=== PATIENT | male | born 1940 | race Caucasian/White ===

== ENCOUNTER 2023-04-23 19:38 | Observation (INO) | payer OTHER ==
[2023-04-23 20:42] LABS: Absolute Lymphocytes (CBC) 1.2 K/uL (0.7-4.9); Hematocrit 25.2 % (39.6-49.0); Lymphocytes % 16.5 % (15.3-44.8); MCV 62.3 fL (80-100); MPV 8.1 fL (7.6-11.3); Platelets 253 thou/uL (152-406); RBC Red Blood Cell Count 4.04 M/uL (4.33-5.43)
[2023-04-23] MEDS ORDERED: MORPHINE 4 MG/ML SYR ONE ×2 (20:43→23:24)
[2023-04-23] MEDS ORDERED: ONDANSETRON 4 MG/2 ML VIAL ONE ×2 (20:44→23:24)
[2023-04-23] MEDS ORDERED: DIAZEPAM 10 MG/2 ML INJ SYRINGE ONE (20:44)
[2023-04-23 20:56] LABS: Protime INR 1.09
[2023-04-23 21:03] LABS: Albumin 3.5 g/dL (3.4-5.0); Bilirubin Direct 0.2 mg/dL (0-0.2); Bilirubin Indirect, Calculated 0.6 mg/dL (0.2-0.8); Bilirubin Total 0.8 mg/dL (0.2-1.0); Magnesium 2.1 mg/dL (1.6-2.4); Potassium 3.8 mEq/L (3.5-5.1); Protein, Total 6.7 g/dL (6.4-8.2); Troponin High Sensitivity 15.3 pg/mL (<58.9)
--- NOTE | 2023-04-23 22:16 | RAD REPORT ---
EXAM DESCRIPTION: CT - Abdomen Pelvis Wo Contrast - 04/23/2023 9:16 pm CLINICAL HISTORY: pelvic pain, Right pelvic / hip pain COMPARISON: No comparisons TECHNIQUE: Thin cut axial CT imaging of the abdomen and pelvis was performed without IV contrast. Mu ltiplanar reformats were generated and reviewed. All CT scans are performed using dose optimization technique as appropriate and may include automated exposure control or mA/KV adjustment according to patient size. FINDINGS: Trace left more than right pleural effusions, with underlying atelectasis. . The liver, spleen, and pancreas show no suspicious findings. Linear mineralization along the right ad renal gland, could relate to sequelae of prior hemorrhage. Gallbladder and biliary tree are also with out suspicious finding. Symmetric renal contour, without suspicious parenchymal findings within limits of noncontrast techniq ue. 1.4 cm hypoattenuating medial left renal superior to mid pole cortical lesion, not well character ized although suggestive of a cyst. No evidence of radiopaque calculi or hydroureteronephrosis. No dilated bowel loops or bowel wall thickening. No free air, free fluid or inflammatory stranding. N o hernia, mass or bulky lymphadenopathy. The urinary bladder is without significant finding. No suspicious bony findings. Bilateral hip prostheses results in streak artifact which limits evaluat ion, despite utilization of metal artifact reduction techniques. IMPRESSION: Trace left more than right pleural effusions. No acute intra-abdominal process. Incidental findings as above.
[2023-04-23 22:17] LABS: Blood Morphology Comment NOTED (NOT SEEN); Hypochromasia 3+; Platelet Estimate ADEQ; Polychromasia 2+; White Blood Cell Scan OK (OK)
--- NOTE | 2023-04-23 22:17 | RAD REPORT ---
EXAM DESCRIPTION: RAD - Femur Right - 04/23/2023 9:06 pm CLINICAL HISTORY: PAIN COMPARISON: No comparisons TECHNIQUE: Right femur, 2 views. FINDINGS: No fracture is identified. Right total hip arthroplasty hardware in satisfactory alignment . There is no dislocation or periosteal reaction noted. No acute or suspicious bony finding. Vascular calcifications. IMPRESSION: Negative right femur examination.
--- NOTE | 2023-04-23 23:13 | EDPHYS ---
Physician Documentation [facility] Name: Elias Molina Age: 82 yrs Sex: Male : 1940 Arrival Date: 04/23/2023 Time: 19:38 Bed 8 Private MD: ED Physician Mario Williamson HPI: 04/23 20:04 This 82 yrs old Male presents to ER via EMS with complaints of Agitation . sp4 20:45 Very pleasant 82-year-old male presents with complaint of agitation and right hip right sp4 pelvic pain. Patient states pain has developed at home after he lifted a heavy lawnmower over onto the bed of a truck. Patient has been given 30 mg Toradol intramuscular by EMS prior to arrival for acute pain. Patient was also given 650 mg p.o. Tylenol by EMS for pain. Patient states he cannot step on the right leg. Secondary to pain. There is also pain traveling down the right thigh. Patient has history of right total hip replacement approximately 5 years ago in [facility].. Historical: - Allergies: 19:50 No Known Allergies; jb4 - Home Meds: 19:50 atorvastatin oral [Active]; Lisinopril Oral [Active]; meloxicam oral [Active]; jb4 - PMHx: 19:50 Hypercholesterolemia; Hypertensive disorder; jb4 - PSHx: 19:50 Right hip replacement; jb4 - Family history:: not pertinent. ROS: 20:45 Constitutional: Negative for fever, chills, and weight loss, Eyes: Negative for injury, sp4 pain, redness, and discharge, ENT: Negative for injury, pain, and discharge, MS/Extremity: Negative for injury and deformity, positive right pelvic and right thigh right femur pain. 20:45 All other systems are negative. Exam: 20:45 Constitutional: This is a well developed, well nourished patient who is awake, alert, sp4 patient found in mild to moderate agitation, restlessness, mild to moderate distress secondary to pain . Patient writhing around the bed cannot find comfortable spot for himself on exam. Nonambulatory at this time secondary to the right extremity pain Head/Face: Normocephalic, atraumatic. Eyes: Pupils equal round and reactive to light, extra-ocular motions intact. Lids and lashes normal. Conjunctiva and sclera are not injected. Cornea within normal limits. Periorbital areas with no swelling, redness, or edema. ENT: Nares patent. No nasal discharge, no septal abnormalities noted. Tympanic membranes are normal and external auditory canals are clear. Oropharynx with no redness, swelling, or masses, exudates, or evidence of obstruction, uvula midline. Mucous membranes moist. Neck: Trachea midline, no thyromegaly or masses palpated, and no cervical lymphadenopathy. Supple, full range of motion without nuchal rigidity, or vertebral point tenderness. Chest/axilla: Normal chest wall appearance and motion. Nontender with no deformity. No lesions are appreciated. Cardiovascular: Regular rate and rhythm with a normal S1 and S2. No gallops, murmurs, or rubs. Normal PMI, no JVD. No pulse deficits. Respiratory: Lungs have equal breath sounds bilaterally, clear to auscultation and percussion. No rales, rhonchi or wheezes noted. No increased work of breathing, no retractions or nasal flaring. Abdomen/GI: Soft, non-tender, with normal bowel sounds. No distension or tympany. No guarding or rebound. No evidence of tenderness throughout. Back: No spinal tenderness. No costovertebral tenderness. Male : Normal genitalia with no discharge or lesions. Patient is incontinent of bladder and wears depends Skin: Warm, dry with normal turgor. Normal color with no rashes, no lesions, and no evidence of cellulitis. MS/ Extremity: Pulses equal, no cyanosis. Neurovascular intact. Full, normal range of motion. Patient has right thigh anterior tenderness, no deformity, scar from prior total hip replacement on the right side. Intact peripheral pulses, intact movement. No sensation deficits Neuro: Awake and alert, GCS 15, oriented to person, place, time, and situation. Cranial nerves II-XII grossly intact. Motor strength 5/5 in all extremities. Sensory grossly intact. Psych: Awake, alert, with orientation to person, place and time. Positive for mild agitation and anxiety 22:07 ECG was reviewed by the Attending Physician. EKG time 2054, there is atrial flutter at sp4 a rate of 74 with right bundle branch block. No sign of ST elevation or depression. 23:06 Abdomen/GI: Exam negative for masses, tenderness, Rectal exam: There is no melena, no sp4 blood, no maroon stool, no hemorrhoid, no fissure, no masses, no condyloma, no other rectal abnormality. Stool is normal color. Vital Signs: 19:47 BP 173 / 98; Pulse 109; Resp 16; Temp 98.3(O); Pulse Ox 100% on R/A; Weight 83.91 kg jb4 (R); Height 5 ft. 6 in. ; Pain 10/10; 21:00 BP 170 / 95; Pulse 98; Resp 16; Pulse Ox 100% on R/A; jb4 22:00 BP 147 / 86; Pulse 92; Resp 18; Pulse Ox 100% on R/A; jb4 23:00 BP 147 / 86; Pulse 81; Resp 16; Pulse Ox 100% ; jb4 04/24 00:00 BP 142 / 75; Pulse 102; Resp 16; Pulse Ox 100% on R/A; jb4 01:00 BP 147 / 75; Pulse 76; Resp 16; Pulse Ox 100% on R/A; jb4 04/23 19:47 Body Mass Index 29.86 (83.91 kg, 167.64 cm) [facility] 04/23 19:47 Pain Scale: Adult jb4 Claudia Coma Score: 04/23 22:07 Eye Response: spontaneous(4). Motor Response: obeys commands(6). Verbal Response: sp4 oriented(5). Total: 15. MDM: 20:13 Patient medically screened. sp4 23:07 Differential Diagnosis altered mental status, sepsis, flu. Data reviewed: vital signs, sp4 nurses notes, EMS record, old medical records, lab test result(s), EKG, radiologic studies, CT scan, plain films. Consideration of Admission/Observation Escalation of care including admission/observation considered. ED course: EKG today revealed rate controlled atrial flutter. Patient and his state that they are not aware patient has irregular heartbeat. Patient reports he is not on any blood thinners. Patient has signs of chronic microcytic anemia with hemoglobin 7.9 with MCV 62.3. Possibly chronic blood loss. Patient has no prior history and no blood values to compare with from the past patient's chemistry panel was basically unremarkable. Patient has mild elevation of BNP of 859. No sign of overt heart failure. patient CT report revealed -trace left greater than right pleural effusion. No acute intra-abdominal process. Incidental findings. There is no problems with liver spleen or pancreas, left renal cyst, normal bowel, normal bladder, no suspicious bony findings, bilateral hip prosthesis without sign of hardware fracture. Right femur x-ray revealed right total hip arthroplasty hardware in satisfactory alignment. No dislocation or periosteal reaction.. ED course: Patient states all of his medical records are at [facility] in [place]. Patient and his family request transfer to [facility] in [place]. Will discuss transfer with [facility] hospital in [place] for continuity of care. Patient needs work-up for atrial flutter, also microcytic anemia, right hip and thigh pain likely musculoskeletal in nature from acute right hip and thigh sprain today after lifting a lawnmower.. 04/24 00:09 ED course: Attempt was made to patient transfer to [facility], [facility] declined secondary to sp4 capacity.. Patient states that he is preferring to stay here for work-up of atrial flutter and microcytic anemia. . 04/23 20:13 Order name: Basic Metabolic Panel; Complete Time: 22:05 [facility] 04/23 20:13 Order name: CBC with Diff; Complete Time: 22:24 [facility] 04/23 20:13 Order name: LFT's; Complete Time: 22:05 [facility] 04/23 20:13 Order name: Magnesium; Complete Time: 22:05 [facility] 04/23 20:13 Order name: NT PRO-BNP; Complete Time: 22:05 [facility] 04/23 20:13 Order name: PT-INR; Complete Time: 22:05 [facility] 04/23 20:13 Order name: Troponin HS; Complete Time: 22:05 [facility] 04/23 21:30 Order name: CBC Smear Scan; Complete Time: 22:24 [facility] 04/23 20:45 Order name: CT Abd/Pelvis - Without Contrast; Complete Time: 22:24 [facility] 04/23 20:45 Order name: Femur Right XRAY; Complete Time: 22:24 [facility] 04/23 20:13 Order name: EKG; Complete Time: 20:13 [facility] 04/23 20:13 Order name: Cardiac monitoring; Complete Time: 21:03 [facility] 04/23 20:13 Order name: EKG - Nurse/Tech; Complete Time: 21:03 [facility] 04/23 20:13 Order name: IV Saline Lock; Complete Time: 20:42 sp4 04/23 20:13 Order name: Labs collected and sent; Complete Time: 20:42 sp4 04/23 20:13 Order name: O2 Per Protocol; Complete Time: 20:42 sp4 04/23 20:13 Order name: O2 Sat Monitoring; Complete Time: 20:42 sp4 EC/11 22:07 Rate is 74 beats/min. Rhythm is irregularly irregular, A flutter. QRS [place] is Normal. sp4 QRS interval is prolonged. QT interval is normal. No ST changes noted. Clinical impression: Atrial Flutter and No evidence of ischemia. Interpreted by me. Administered Medications: 20:42 Drug: morphine IVP or IV 4 mg Route: IVP; Infused Over: 4 mins; Site: right antecubital;jb4 20:42 Drug: Diazepam IVP 5 mg Route: IVP; Site: right antecubital; jb4 20:42 Drug: Ondansetron IVP 4 mg Route: IVP; Site: right antecubital; jb4 23:21 Drug: morphine IVP or IV 4 mg Route: IVP; Infused Over: 4 mins; Site: right antecubital;jb4 23:21 Drug: Ondansetron IVP 4 mg Route: IVP; Site: right antecubital; jb4 Disposition Summary: 04/24/23 00:08 Hospitalization Ordered Hospitalization Status: Inpatient Admission sp4 Provider: Daniel Gutierres Location: Telemetry/[facility]Sur (Inpatient) sp4 Condition: Fair(04/24/23 00:08) sp4 Problem: new(04/24/23 00:08) sp4 Symptoms: are unchanged(04/24/23 00:08) sp4 Bed/Room Type: Standard sp4 Room Assignment: 213(04/24/23 00:58) Diagnosis - Unspecified atrial flutter sp4 - Anemia, unspecified sp4 - Acute fall at home, musculoskeletal pain in the right hip and thigh, moderate sp4 dementia, physical deconditioning, rate controlled atrial flutter, microcytic anemia, Forms: - Medication Reconciliation Form sp4 - SBAR form sp4 - Leadership Thank You Letter sp4 Signatures: Dispatcher [employer] EDCT Sherine Rodrigues RN RN Guillermo Flores RN RN jb4 Mario Williamson MD MD sp4 Corrections: (The following items were deleted from the chart) 04/24 00:07 04/23 23:13 [facility] [employer] sp4 sp4 04/24 00:07 04/23 23:13 [facility]-System sp4 sp4 04/24 00:07 04/23 23:13 Higher level of care sp4 sp4 04/24 00:07 04/23 23:13 Stable sp4 sp4 04/24 00:07 04/23 23:13 new sp4 sp4 04/24 00:07 04/23 23:13 have improved sp4 sp4 04/24 00:07 04/23 23:13 Other specified anemias sp4 sp4 04/24 00:07 04/23 23:13 Unspecified symptoms and signs involving the musculoskeletal system sp4 sp4 04/24 00:07 04/23 23:13 Right hip and pelvis sprain. Symptomatic anemia, microcytic anemia, atrial sp4 flutter, moderate to severe right hip pain, inability to ambulate. sp4 04/24 00:58 00:08 sp4 mw
--- NOTE | 2023-04-23 23:13 | ER ---
Nurse's Notes [facility] Name: Elias Molina Age: 82 yrs Sex: Male : 1940 Arrival Date: 04/23/2023 Time: 19:38 Bed 8 Private MD: Diagnosis: Unspecified atrial flutter;Anemia, unspecified;Acute fall at home, musculoskeletal pain in the right hip and thigh, moderate dementia, physical deconditioning, rate controlled atrial flutter, microcytic anemia, Presentation: 04/23 19:47 Chief complaint: Patient states: "I did not fall. The pain got so bad I eased myself to jb4 the ground." EMS states: Pt reports stumbling and falling and landing on his bottom. Reports right hip pain after falling, no obvious deformity noted. Coronavirus screen: At this time, the client does not indicate any symptoms associated with coronavirus-19. Ebola Screen: No symptoms or risks identified at this time. Initial Sepsis Screen: Does the patient meet any 2 criteria? No. Patient's initial sepsis screen is negative. Does the patient have a suspected source of infection? No. Patient's initial sepsis screen is negative. Risk Assessment: Do you want to hurt yourself or someone else? Patient reports no desire to harm self or others. Onset of symptoms was April 23, 2023. Transition of care: patient was not received from another setting of care. 19:47 Method Of Arrival: EMS: [facility] jb4 19:47 Acuity: [facility] 3 jb4 19:47 Care prior to arrival: Medication(s) given: Tylenol, 975mg Toradol 30mg IM. jb4 Triage Assessment: 19:50 General: Appears in no apparent distress. comfortable, Behavior is calm, cooperative. jb4 Pain: Complains of pain in right leg Pain does not radiate. Pain currently is 10 out of 10 on a pain scale. Is intermittent, Aggravated by Movement. EENT: No deficits noted. Neuro: Level of Consciousness is awake, alert, obeys commands, Oriented to person, place, time, situation. Cardiovascular: Patient's skin is warm and dry. Respiratory: Airway is patent Respiratory effort is even, unlabored, Respiratory pattern is regular, symmetrical. GI: No signs and/or symptoms were reported involving the gastrointestinal system. : No signs and/or symptoms were reported regarding the genitourinary system. Derm: Skin is intact, Skin is pink, warm \\T\\ dry. normal. Musculoskeletal: Circulation, motion, and sensation intact. Range of motion: intact in all extremities. Historical: - Allergies: 19:50 No Known Allergies; jb4 - Home Meds: 19:50 atorvastatin oral [Active]; Lisinopril Oral [Active]; meloxicam oral [Active]; jb4 - PMHx: 19:50 Hypercholesterolemia; Hypertensive disorder; jb4 - PSHx: 19:50 Right hip replacement; jb4 - Family history:: not pertinent. Screenin:53 [facility] ED Fall Risk Assessment (Adult) History of falling in the last 3 months, jb4 including since admission No falls in past 3 months (0 pts) Confusion or Disorientation No (0 pts) Score/Fall Risk Level 0 - 2 = Low Risk Oriented to surroundings, Maintained a safe environment. Abuse screen: Denies threats or abuse. Nutritional screening: No deficits noted. Tuberculosis screening: No symptoms or risk factors identified. Assessment: 21:00 Reassessment: Patient appears in no apparent distress at this time. Patient and/or jb4 family updated on plan of care and expected duration. Pain level reassessed. Patient is alert, oriented x 3, equal unlabored respirations, skin warm/dry/pink. 22:00 Reassessment: Patient appears in no apparent distress at this time. Patient and/or jb4 family updated on plan of care and expected duration. Pain level reassessed. Patient is alert, oriented x 3, equal unlabored respirations, skin warm/dry/pink. 23:00 Reassessment: Patient appears in no apparent distress at this time. Patient and/or jb4 family updated on plan of care and expected duration. Pain level reassessed. Patient is alert, oriented x 3, equal unlabored respirations, skin warm/dry/pink. 04/24 00:00 Reassessment: Patient appears in no apparent distress at this time. Patient and/or jb4 family updated on plan of care and expected duration. Pain level reassessed. Patient is alert, oriented x 3, equal unlabored respirations, skin warm/dry/pink. 01:00 Reassessment: Patient appears in no apparent distress at this time. Patient and/or jb4 family updated on plan of care and expected duration. Pain level reassessed. Patient is alert, oriented x 3, equal unlabored respirations, skin warm/dry/pink. Vital Signs: 04/23 19:47 BP 173 / 98; Pulse 109; Resp 16; Temp 98.3(O); Pulse Ox 100% on R/A; Weight 83.91 kg jb4 (R); Height 5 ft. 6 in. ; Pain 10/10; 21:00 BP 170 / 95; Pulse 98; Resp 16; Pulse Ox 100% on R/A; jb4 22:00 BP 147 / 86; Pulse 92; Resp 18; Pulse Ox 100% on R/A; jb4 23:00 BP 147 / 86; Pulse 81; Resp 16; Pulse Ox 100% ; jb4 04/24 00:00 BP 142 / 75; Pulse 102; Resp 16; Pulse Ox 100% on R/A; jb4 01:00 BP 147 / 75; Pulse 76; Resp 16; Pulse Ox 100% on R/A; jb4 04/23 19:47 Body Mass Index 29.86 (83.91 kg, 167.64 cm) 4 04/23 19:47 Pain Scale: Adult [facility] Claudia Coma Score: 04/23 22:07 Eye Response: spontaneous(4). Motor Response: obeys commands(6). Verbal Response: sp4 oriented(5). Total: 15. ED Course: 19:39 Patient arrived in ED. rv1 19:50 Triage completed. jb4 19:50 Arm band placed on right wrist. jb4 19:53 Patient has correct armband on for positive identification. Bed in low position. Call [facility] light in reach. Side rails up X 1. Client placed on continuous cardiac and pulse oximetry monitoring. NIBP monitoring applied. 20:04 Mario Williamson MD is Attending Physician. sp4 20:25 Initial lab(s) drawn, by md, sent to lab. Inserted saline lock: 18 gauge in right jb4 antecubital area, using aseptic technique. Blood collected. 21:08 Femur Right XRAY In Process Unspecified. EDMS 21:18 CT Abd/Pelvis - Without Contrast In Process Unspecified. EDMS 21:18 Guillermo Flores RN is Primary Nurse. jb4 04/24 00:07 Daniel Gutierres MD is Hospitalizing Provider. sp4 01:51 No provider procedures requiring assistance completed. Patient admitted, IV remains in jb4 place. Administered Medications: 04/23 20:42 Drug: morphine IVP or IV 4 mg Route: IVP; Infused Over: 4 mins; Site: right antecubital;jb4 20:42 Drug: Diazepam IVP 5 mg Route: IVP; Site: right antecubital; jb4 20:42 Drug: Ondansetron IVP 4 mg Route: IVP; Site: right antecubital; jb4 23:21 Drug: morphine IVP or IV 4 mg Route: IVP; Infused Over: 4 mins; Site: right antecubital;jb4 23:21 Drug: Ondansetron IVP 4 mg Route: IVP; Site: right antecubital; jb4 Medication: 19:53 VIS not applicable for this client. jb4 Outcome: 23:13 ER care complete, transfer ordered by . sp4 04/24 00:08 Decision to Hospitalize by Provider. sp4 01:51 Admitted to Med/surg accompanied by nurse, via stretcher, room 213, with chart, Report jb4 called to TRISTEN Baxter 01:51 Condition: stable 01:51 Discharge instructions given to patient, family, Instructed on the need for admit, Demonstrated understanding of instructions. 01:54 Patient left the ED. 4 Signatures: Dispatcher [employer] EDGuillermo Andersen RN RN jb4 Fatemeh Smith rv1 Mario Williamson MD MD sp4 Corrections: (The following items were deleted from the chart) 04/23 19:55 19:47 Chief complaint: Patient states: "I did not fall. The pain got so bad I eased jb4 myself to the ground." EMS states: Pt reports stumbling and falling and landing on his bottom. Reports right hip pain after falling, no obvious deformity noted. jb4 04/24 01:51 04/23 23:00 No provider procedures requiring assistance completed. jb4 jb4 04/24 01:04/23 23:00 Patient admitted, IV remains in place. jb4 jb4
--- NOTE | 2023-04-24 00:42 | P.HP ---
Certification for Inpatient Patient admitted to: Observation With expected LOS: <2 Midnights Patient will require the following post-hospital care: None Practitioner: I am a practitioner with admitting privileges, knowledge of patient current condition, hospital course, and medical plan of care. Services: Services provided to patient in accordance with Admission requirements found in Title 42 Section 412.3 of the Code of Federal Regulations <MikeScott Mccallum - Last Filed: 04/24/23 00:38> Patient History Date of Service: 04/24/23 Reason for admission: New onset A-fib, fall History of Present Illness: 82-year-old male with history of hypertension, hyperlipidemia presents emergency department with chief complaint of fall resulting in right hip pain. He cannot really explain the events surrounding the fall, he is mildly confused it appears at baseline. Oriented x2-3. He reports that he thinks he slipped or tripped causing his fall denies loss of consciousness chest pain or headache preceding his fall primarily complaining of right hip pain. He was evaluated in the emergency department CT abdomen pelvis without contrast was performed which was negative for traumatic findings showed trace left more than right pleural effusions. EKG was performed which revealed atrial fibrillation which is new for the patient as far as he and his now also notable for microcytic anemia. No known history of anemia either, no labs available for comparison. ED provider wishes to admit under observation for new onset atrial fibrillation, microcytic anemia, fall, right hip pain. Rectal examination was negative for melena, no reports of GI bleeding. Will admit for further evaluation. - Past Medical/Surgical History Diabetic: No -: Hypertension -: Hyperlipidemia -: Bilateral hip replacement Psychosocial/ Personal History: Patient lives at home with his - Family History Family History: Reviewed- Non-Contributory - Social History Smoking Status: Never smoker Alcohol use: No CD- Drugs: No Caffeine use: Yes Place of Residence: Home <Scott Mckeon - Last Filed: 04/24/23 00:38> Date of Service: 04/24/23 <Daniel Gutierres - Last Filed: 04/24/23 18:32> Review of Systems 10-point ROS is otherwise unremarkable Musculoskeletal: Other (Right hip pain) <Scott Mckeon - Last Filed: 04/24/23 00:38> Physical Examination - Physical Exam General: Alert, In no apparent distress, Oriented x2 HEENT: Atraumatic, PERRLA, Mucous membr. moist/pink, EOMI, Sclerae nonicteric Neck: Supple, 2+ carotid pulse no bruit, No LAD, Without JVD or thyroid abnormality Respiratory: Clear to auscultation bilaterally, Normal air movement Cardiovascular: Regular rate/rhythm, Normal S1 S2 Capillary refill: <2 Seconds Gastrointestinal: Normal bowel sounds, No tenderness Musculoskeletal: No tenderness Integumentary: No rashes Neurological: Normal speech, Normal strength at 5/5 x4 extr, Normal tone, Normal affect - Studies Laboratory Data (last 24 hrs) 04/23/23 04/23/23 04/23/23 20:25 20:25 20:25 WBC 7.00 Hgb 7.9 L Hct 25.2 L Plt Count 253 PT 12.0 INR 1.09 Sodium 137 Potassium 3.8 BUN 26 H Creatinine 1.21 Glucose 108 H Magnesium 2.1 Total Bilirubin 0.8 AST 14 L ALT 22 Alkaline Phosphatase 72 <Scott Mckeon - Last Filed: 04/24/23 00:38> - Studies Laboratory Data (last 24 hrs) 04/23/23 04/23/23 04/23/23 20:25 20:25 20:25 WBC 7.00 Hgb 7.9 L Hct 25.2 L Plt Count 253 PT 12.0 INR 1.09 Sodium 137 Potassium 3.8 BUN 26 H Creatinine 1.21 Glucose 108 H Magnesium 2.1 Total Bilirubin 0.8 AST 14 L ALT 22 Alkaline Phosphatase 72 <Daniel Gutierres - Last Filed: 04/24/23 18:32> Assessment and Plan - Plan Assessment: New onset atrial fibrillation Microcytic anemia Mechanical fall/right hip pain Hypertension Hyperlipidemia Plan: New onset atrial fibrillation No known history of atrial fibrillation, [id number] score is 3 which would warrant anticoagulation although patient has what is believed to be a new onset microcytic anemia with hemoglobin of 7.8, will hold off on systemic anticoagulation until acute bleeding is without. Currently is rate controlled. Will obtain echocardiogram, measure thyroid function, cardiology consultation. Microcytic anemia -type and screen, SADAF labs ordered. Transfuse to maintain hemoglobin greater than 7. Mechanical fall/right hip pain As needed pain medications, PT consult. Hypertension Hyperlipidemia Continue home medications. DVT PPX: SCD Code status: Full Discharge Plan: Home Plan to discharge in: 24 Hours - Advance Directives Does patient have a Living Will: No Does patient have a Durable POA for Healthcare: No - Code Status/Comfort Care Code Status Assessed: Yes (Full code) Critical Care: No Time Spent Managing Pts Care (In Minutes): 55 <Scott Mckeon - Last Filed: 04/24/23 00:38> Physician Review: Patient Assessed, Agree with Above Assessment and Plan <Daniel Gutierres - Last Filed: 04/24/23 18:32>
[2023-04-24 02:00] VITALS: O2SAT 100
[2023-04-24] MEDS ORDERED: ONDANSETRON 4 MG/2 ML VIAL IV PRN (02:00)
[2023-04-24] MEDS: HYDROCODONE/APAP 5/325 MG TAB PO PRN ×2 (02:21→19:15)
[2023-04-24 04:34] LABS: Absolute Lymphocytes (CBC) 1.4 K/uL (0.7-4.9); Hematocrit 23.1 % (39.6-49.0); Lymphocytes % 20.4 % (15.3-44.8); MPV 8.3 fL (7.6-11.3); Platelets 225 thou/uL (152-406); RBC Red Blood Cell Count 3.67 M/uL (4.33-5.43)
[2023-04-24 04:42] LABS: MCV 62.9 fL (80-100)
[2023-04-24 05:01] LABS: Ferritin 3.7 ng/mL (26-388); Magnesium 2.1 mg/dL (1.6-2.4); Potassium 3.8 mEq/L (3.5-5.1); Thyroid Stimulating Hormone 3.35 uIU/mL (0.358-3.740); Troponin High Sensitivity 25.5 pg/mL (<58.9)
[2023-04-24 10:57] LABS: Specific Gravity > 1.030 (1.005-1.030); Urine Bacteria None Seen /HPF (<20); Urine Bilirubin NEGATIVE (Negative); Urine Blood Negative (Negative); Urine Clarity Clear (Clear); Urine Color Yellow (Yellow); Urine Glucose NEGATIVE (Negative); Urine Mucus 2+ /HPF (None Seen); Urine Protein 1+ (Negative); Urine RBC <5 /HPF (None Seen); Urine Urobilinogen Normal (Normal); Urine pH 5.5 (5.0-7.0)
[2023-04-24] MEDS: SOD FERRIC GLUC COMPLX/SUCROSE 125 MG in NA CHLORIDE 0.9% 100 ML IV SCH (18:58)
[2023-04-24] MEDS ORDERED: ALPRAZOLAM 0.25 MG TABLET PO ONE (19:00)
[2023-04-24 20:12] LABS: Hematocrit 25.1 % (39.6-49.0)
[2023-04-24] MEDS ORDERED: HALOPERIDOL LACT 5 MG/ML INJ IV ONE (21:34)
[2023-04-25 02:01] VITALS: BMI 29.8
[2023-04-25 03:28] LABS: Absolute Lymphocytes (CBC) 1.1 K/uL (0.7-4.9); Lymphocytes % 20.1 % (15.3-44.8); MPV 8.3 fL (7.6-11.3); Platelets 204 thou/uL (152-406); RBC Red Blood Cell Count 3.66 M/uL (4.33-5.43)
[2023-04-25 03:36] LABS: MCV 62.8 fL (80-100)
[2023-04-25 03:42] LABS: Magnesium 2.1 mg/dL (1.6-2.4)
[2023-04-25] MEDS: SOD FERRIC GLUC COMPLX/SUCROSE 125 MG in NA CHLORIDE 0.9% 100 ML IV SCH (08:57)
--- NOTE | 2023-04-25 09:22 | ECHO ---
HEIGHT: 5 ft 6 in WEIGHT: 185 lb 0 oz DATE OF STUDY: 04/24/[address]: Scott Mckeon NP 2-DIMENSIONAL: YES M.MODE: YES DOPPLER: YES COLOR FLOW: YES TDS: PORTABLE: YES DEFINITY: BUBBLE STUDY: DIAGNOSIS: NEW ATRIAL FIBRILLATION CARDIAC HISTORY: CATHERIZATION: NO SURGERY: NO PROSTHETIC VALVE: NO PACEMAKER: NO MEASUREMENTS (cm) DIASTOLIC (NORMALS) SYSTOLIC (NORMALS) IVSd 0.9 (0.6-1.2) LA Diam 3.3 (1.9-4.0) LVEF 68% LVIDd 4.6 (3.5-5.7) LVIDs 2.9 (2.0-3.5) %FS 38% LVPWd 1.1 (0.6-1.2) Ao Diam 3.1 (2.0-3.7) 2 DIMENSIONAL ASSESSMENT: RIGHT ATRIUM: NORMAL LEFT ATRIUM: NORMAL RIGHT VENTRICLE: NORMAL LEFT VENTRICLE: NORMAL TRICUSPID VALVE: NORMAL MITRAL VALVE: MILD MITRAL REGURGITATION PULMONIC VALVE: NORMAL AORTIC VALVE: MILD AORTIC INSUFFICIENCY PERICARDIAL EFFUSION: NONE AORTIC ROOT: NORMAL LEFT VENTRICULAR WALL MOTION: NORMAL DOPPLER/COLOR FLOW: SEE BELOW COMMENTS: 1. NORMAL LEFT VENTRICULAR EJECTION FRACTION 55-60% 2. NORMAL WALL MOTION 3. MILD MITRAL REGURGITATION 4. MILD TRICUSPID REGURGITATION TECHNOLOGIST: BERTA MARTINEZ
[2023-04-25 11:52] LABS: Hematocrit 26.8 % (39.6-49.0)
[2023-04-25 12:36] VITALS: BP 149/75; TEMP 97.8
--- NOTE | 2023-04-25 13:28 | P.DS ---
Admission Date: 04/24/23 Discharge Date: 04/25/23 Disposition: ROUTINE DISCHARGE Discharge Condition: GOOD Reason for Admission: New onset A-fib, fall Consultations: 1. 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 Elias Molina is a pleasant 82 year old male with a past medical history significant for hypertension and hyperlipidemia who was admitted to the [facility] on 04/24/2023 for right hip pain. He as admitted to the Medicine service. Upon further evaluation, his CT abdomen/pelvis revealed, "trace left more than right pleural effusions. No acute intra-abdominal process." His right femur x-ray revealed, "negative right femur examination." He was incidentally found to have rate-controlled atrial fibrillation. Cardiology was consulted and he was evaluated by Dr. Sharpe. He recommended starting metoprolol succinate 25 mg daily. He has cleared him for discharge with outpatient follow-up. Incidentally, he was found to have microcytic anemia. Further evaluation revealed lab studies consistent with iron-deficiency. He reported having a prior colonoscopy, but he does not remember when it was. To his knowledge, there were no abnormalities. He did not display any evidence of bleeding. In the Emergency Department, his digital rectal examination was negative for melena. He denied any hemoptysis, hematemesis, hematuria, hematochezia, melena, or any obvious source of bleeding. After a detailed discussion with Dr. Sharpe, Dr. Sewell, Mr. Molina, and his Mrs. Molina, it was decided that he should not be started on systemic anticoagulation at this time. This decision was reached based on the unknown chronicity of his anemia as well as his CT scan concerning for a possible prior right adrenal hemorrhage. He and his were provided an extensive risk/benefit counseling regarding anticoagulation including, but not limited to, stroke risk/ without anticoagulation compared to severe bleeding/ with anticoagulation. They have agreed to hold off on anticoagulation at this time. Dr. Sewell has them scheduled to see him in clinic today at 15:00 and he will arrange for endoscopy tomorrow. Dr. Sharpe has arranged to see them in clinic on 04/30/2023 to re-visit the topic of anticoagulation at that time. Mr. Molina and his have agreed to make the above follow-up appointment and verbalized agreement with this management plan. In regards to his mobility, he was able to walk 250 feet with a cane. Per his , he uses a cane at baseline. She has also confirmed that he is alert and oriented x 2 at baseline. On 04/25/2023, he was seen on rounds and deemed medically stable for discharge. He was discharged with instructions to schedule follow-up appointments with his PCP ([facility]), with Gastroenterology (Dr. Sewell), and with Cardiology (Dr. Sharpe). He was provided a prescription for metoprolol succinate. He and his were given the opportunity to ask questions and reported no further questions. Furthermore, all questions were answered to the best of my ability. A copy of this discharge summary will be sent to the above providers to facilitate continuity of care. Today, I personally spent 35 minutes on his case, of which greater than 50% of the time was spent in patient education, counseling, and coordination of care as described above. Vital Signs/Physical Exam: Temp Pulse Resp BP Pulse Ox 97.8 F 77 18 149/75 H 100 04/25/23 12:00 04/25/23 12:00 04/25/23 12:00 04/25/23 12:00 04/25/23 12:00 General: Alert, In no apparent distress, Oriented x2 HEENT: Atraumatic, Mucous membr. moist/pink, Sclerae nonicteric Neck: JVD not distended Respiratory: Clear to auscultation bilaterally, Normal air movement Cardiovascular: No edema, Regular rate/rhythm, Normal S1 S2, No gallops, No rubs, No murmurs Gastrointestinal: Normal bowel sounds, Soft and benign, Non-distended, No tenderness, No rebound, No guarding Musculoskeletal: No clubbing Integumentary: No rashes Neurological: Normal speech, Normal affect Laboratory Data at Discharge: WBC 5.50 thou/uL (4.3-10.9) 04/25/23 02:39 Hgb 8.1 g/dL (13.6-17.9) L D 04/25/23 11:27 Hct 26.8 % (39.6-49.0) L 04/25/23 11:27 Plt Count 204 thou/uL (152-406) 04/25/23 02:39 PT 12.0 SECONDS (9.5-12.5) 04/23/23 20:25 INR 1.09 04/23/23 20:25 Sodium 141 mEq/L (136-145) 04/25/23 02:39 Potassium 4.0 mEq/L (3.5-5.1) 04/25/23 02:39 BUN 27 mg/dL (7-18) H 04/25/23 02:39 Creatinine 1.13 mg/dL (0.70-1.30) 04/25/23 02:39 Glucose 101 mg/dL (74-106) 04/25/23 02:39 Magnesium 2.1 mg/dL (1.6-2.4) 04/25/23 02:39 Total Bilirubin 0.8 mg/dL (0.2-1.0) 04/23/23 20:25 AST 14 U/L (15-37) L 04/23/23 20:25 ALT 22 U/L (16-61) 04/23/23 20:25 Alkaline Phosphatase 72 U/L (45-117) 04/23/23 20:25 Triglycerides 37 mg/dL (<150) 04/24/23 03:32 Cholesterol 106 mg/dL (<200) 04/24/23 03:32 HDL Cholesterol 46 mg/dL (40-60) 04/24/23 03:32 Cholesterol/HDL Ratio 2.30 04/24/23 03:32 Home Medications: Ferrous Sulfate 325 mg PO DAILY #30 04/25/23 Metoprolol Succinate 25 mg PO DAILY #30 tab 04/25/23 New Medications: Ferrous Sulfate 325 mg PO DAILY #30 Metoprolol Succinate 25 mg PO DAILY #30 tab Physician Discharge Instructions: 1. Please call and schedule a follow-up appointment with your PCP ([facility]) in 3-5 days - Your iron levels were low. Please have your PCP repeat your iron levels and blood counts at your next appointment - Your CT scan showed that you have had a possible previous bleed in your adrenal gland. Please discuss with your PCP - Your CT scan showed a 1.4 cm spot on your left kidney. Please discuss with your PCP. 2. Please go directly to Dr. Sewell's (Gastroenterology) office for an appointment at 3:00 PM - He will likely schedule you for a procedure tomorrow to evaluate your low blood counts 3. Please walk-in to Cardiology clinic with Dr. Sharpe on 04/30/2023 - he will be expecting you this day - Please re-discuss the topic of a blood thinner during this appotinment - Please follow-up with your PCP for medication refills/adjustments Diet: AHA Activity: Ad janet Followup: Unknown,U [Primary Care Provider] - Corey Sharpe MD [ACTIVE - CAN ADMIT] - Austin Sewell MD [ASSOCIATE-ACTIVE - CAN ADMIT] - Time spent managing pt's care (in minutes): 35
--- NOTE | 2023-04-25 14:53 | EKG ---
Test Date: 2023-04-25 Test Time: 11:12:52 Drilling Assistant: FOSTER MEASUREMENT RESULTS: Intervals: Rate: 77 VA: 308 QRSD: 116 QT: 410 QTc: 463 [place]: P: VA: 308 QRS: 86 T: 55 INTERPRETIVE STATEMENTS: Sinus rhythm with 1st degree AV block Low voltage QRS Right bundle branch block Abnormal ECG Compared to ECG 04/23/2023 20:55:49 First degree AV block now present Low QRS voltage now present Atrial flutter no longer present Electronically Signed On 04-25-23 14:52:55 CDT by Corey Sharpe
--- NOTE | 2023-04-25 15:00 | EKG ---
Test Date: 2023-04-23 Test Time: 20:55:49 Applications Analyst: ALDEN MEASUREMENT RESULTS: Intervals: Rate: 74 [place]: QRSD: 134 QT: 428 QTc: 475 [place]: P: 263 WV: QRS: 79 T: 46 INTERPRETIVE STATEMENTS: Atrial flutter with variable AV block Right bundle branch block Abnormal ECG No previous ECG available for comparison Electronically Signed On 04-25-23 14:56:10 CDT by Corey Sharpe
--- NOTE | 2023-04-25 20:17 | CON ---
Date of Consultation: 04/25/2023 Reason For Consultation: Atrial fibrillation. History Of Present Illness: This is an 82-year-old male with history of hypertension, dyslipidemia, presented to the hospital with fall, found to have atrial fibrillation on the EKG, hence I was consul naa. I saw him by bedside. He does not have any history of cardiac disease. No chest pain. No jenny rtness of breath. No palpitations. Past Medical History: As outlined above in the HPI. Medications: Refer consultation sheet for detailed list. Allergies: NO KNOWN DRUG ALLERGIES. Family History: No premature coronary artery disease or cancer. Social History: Does not smoke or drink. Does not use any drugs. Review of Systems: All systems reviewed are negative except mentioned in HPI. Physical Examination: Vital Signs: Reviewed. Head and Neck: Pupils are equal, reactive to light. Intact eye movements. No JVD. No cervical lym phadenopathy. Neck: Supple. Thyroid is not enlarged. Lungs: Clear to auscultation bilaterally. No rhonchi, wheezing, or crackles. No accessory muscle u se. Heart: Regular rate and rhythm. No extra sounds. Abdomen: Soft, nontender. Bowel sounds positive. No organomegaly. No masses or hernia. No rigidi ty or rebound. Extremities: No edema, clubbing, or cyanosis. Intact pulses. Skin: No rashes. Neurologic: Alert, awake, oriented x3. No acute focal deficits appreciated. Investigations: Labs were reviewed and on echo, his ejection fraction is normal. Assessment/recommendations: 1.Atrial fibrillation. He converted to sinus rhythm. I recommend metoprolol 25 mg twice a day and Eliquis 5 mg twice a day to be discharged on and follow up with me as an outpatient in 2 weeks and wi ll carry his treatment through. 2.Elevated NT-proBNP. Echo showed normal ejection fraction. Mild diastolic dysfunction. He is euv olemic. No medications are needed. We will monitor. Recommend low-salt diet. SR/MODL Voice ID: [id number] Report ID: [id number]
== END 2023-04-25 14:43 | disposition home or self-care (01) ==
LOC: ER 19:38 → ERHOLD 04-24 01:04 → 2ND 04-24 01:21
PROVIDERS: ADMIT Internal Medicine; ATTEND Internal Medicine
DX: I48.0 Paroxysmal atrial fibrillation (principal); I10 Essential (primary) hypertension; E78.5 Hyperlipidemia, unspecified; M25.551 Pain in right hip; R79.89 Other specified abnormal findings of blood chemistry; N28.9 Disorder of kidney and ureter, unspecified; D50.9 Iron deficiency anemia, unspecified; W19.XXXA Unspecified fall, initial encounter; Y93.9 Activity, unspecified; Y92.9 Unspecified place or not applicable
CPT/HCPCS: 93005 ×2; 93306; 85025 ×3; 81001; 80048 ×3; 36415 ×2; 86900; 83735 ×3; 86850; 85610; 80061; 86901; 80076; 84443; 85018 ×2; 85014 ×2; 84484 ×3; 84439; 82728; 82607; 83540; 83880; 84466; 74176; 73552; 97112; 97116; 97161; 96375; 96374; 99285; J2916; J1630; J3360; J2405 ×2; G0378

== ENCOUNTER 2024-06-04 09:17 | Emergency (ER) | payer OTHER ==
--- NOTE | 2024-06-04 10:07 | EDPHYS ---
Physician Documentation [facility] Name: Elias Molina Age: 83 yrs Sex: Male : 1940 Arrival Date: 06/04/2024 Time: 09:17 Bed 7 Private MD: ED Physician Aram Jamison HPI: 06/04 09:58 This 83 yrs old Male presents to ER via Ambulatory with complaints of Hernia. rn 09:58 The patient presents with abdominal pain. Onset: The symptoms/episode began/occurred rn yesterday. The symptoms do not radiate. Associated signs and symptoms: Pertinent negatives: nausea and vomiting, blood in stools, fever. Modifying factors: The symptoms are alleviated by nothing, the symptoms are aggravated by touching the area. Severity of pain: At its worst the pain was moderate in the emergency department the pain has improved. The patient has experienced similar episodes in the past. Patient reports has had hernia for years, has been working in his garden lately, noticed last night increased pain to the right groin at site of hernia. Was having trouble reducing hernia so came in for evaluation. No vomiting. No fever. No blood in stool. Having bowel movements.. Historical: - PMHx: 10:23 Hypercholesterolemia; Hypertensive disorder; bp - PSHx: 10:23 Right hip replacement; bp - Immunization history:: Adult Immunizations up to date. - Infectious Disease History:: Denies. - Family history:: not pertinent. - Hospitalizations: : No recent hospitalization is reported. - Social history:: Smoking status: Patient denies any tobacco usage or history of. ROS: 09:58 Constitutional: Negative for fever, chills, and weight loss, Cardiovascular: Negative rn for chest pain, palpitations, and edema, Respiratory: Negative for shortness of breath, cough, wheezing, and pleuritic chest pain, Abdomen/GI: Positive for right inguinal pain negative for vomiting or diarrhea MS/Extremity: Negative for injury and deformity, Skin: Negative for injury, rash, and discoloration, Neuro: Negative for headache, weakness, numbness, tingling, and seizure, Exam: 09:58 Constitutional: This is a well developed, well nourished patient who is awake, alert, rn and in no acute distress. Abdomen/GI: Soft, nontender, nondistended. Right inguinal hernia, small, no overlying skin changes. Hernia is reducible once patient laid down in Trendelenburg position and constant pressure. After reduction of hernia pain resolved and patient denies any discomfort. Male : No scrotal swelling Vital Signs: 09:37 BP 193 / 104; Pulse 79; Resp 16; Temp 98.3; Pulse Ox 100% on R/A; Pain 8/10; hb 09:37 Pain Scale: Adult hb MDM: 09:24 Medical Screening Exam initiated rn 09:58 Differential diagnosis: Inguinal hernia. Data reviewed: vital signs, nurses notes, and rn as a result, I will discharge patient. Counseling: I had a detailed discussion with the patient and/or guardian regarding the historical points, exam findings, and any diagnostic results supporting the discharge/admit diagnosis, the need for outpatient follow up, to return to the emergency department if symptoms worsen or persist or if there are any questions or concerns that arise at home. Response to treatment: the patient's symptoms have resolved after treatment, the patient's condition has returned to base line, the patient is now symptom free, and as a result, I will discharge patient. Special discussion: I discussed with the patient/guardian in detail that at this point there is no indication for admission to the hospital. It is understood, however, that if the symptoms persist or worsen the patient needs to return immediately for re-evaluation. Administered Medications: No medications were administered Disposition Summary: 06/04/24 10:06 Discharge Ordered Notes: Location: Home rn Problem: new rn Symptoms: have improved rn Condition: Stable rn Diagnosis - Unilateral inguinal hernia, without obstruction or gangrene, recurrent rn Followup: rn - With: Sammy Licona MD - When: As needed - Reason: Recheck today's complaints, Re-evaluation by your physician Discharge Instructions: - Discharge Summary Sheet rn - Hernia, Adult rn Forms: - Medication Reconciliation Form rn - Antibiotic rn clinical trials - Prescription Opioid Use rn - Patient Portal Instructions rn - Leadership Thank You Letter rn Signatures: Aram Jamison MD MD rn Peltier, Brian, RN RN bp
--- NOTE | 2024-06-04 10:07 | ER ---
Nurse's Notes [facility] Name: Elias Molina Age: 83 yrs Sex: Male : 1940 Arrival Date: 06/04/2024 Time: 09:17 Bed 7 Private MD: Diagnosis: Unilateral inguinal hernia, without obstruction or gangrene, recurrent Presentation: 06/04 09:37 Chief complaint: Groin pain x 2 years, became severe yesterday. Coronavirus screen: At this time, the client does not indicate any symptoms associated with coronavirus-19. Ebola Screen: No symptoms or risks identified at this time. Risk Assessment: Do you want to hurt yourself or someone else? Patient reports no desire to harm self or others. Onset of symptoms was June 03, 2024. 09:37 Method Of Arrival: Ambulatory 09:37 Acuity: TIRSO 3 hb 10:25 Initial Sepsis Screen: Does the patient meet any 2 criteria? No. Patient's initial bp sepsis screen is negative. Does the patient have a suspected source of infection? No. Patient's initial sepsis screen is negative. Triage Assessment: 09:50 General: Appears in no apparent distress. Behavior is calm, cooperative, appropriate bp for age. Pain: Complains of pain in pelvis. EENT: No deficits noted. Neuro: No deficits noted. Cardiovascular: No deficits noted. Respiratory: No deficits noted. GI: No signs and/or symptoms were reported involving the gastrointestinal system. : Reports pain scrotum. Derm: No deficits noted. Musculoskeletal: No deficits noted. Historical: - PMHx: 10: Hypercholesterolemia; Hypertensive disorder; bp - PSHx: 10:23 Right hip replacement; bp - Immunization history:: Adult Immunizations up to date. - Infectious Disease History:: Denies. - Family history:: not pertinent. - Hospitalizations: : No recent hospitalization is reported. - Social history:: Smoking status: Patient denies any tobacco usage or history of. Screenin:23 [facility] ED Fall Risk Assessment (Adult) History of falling in the last 3 months, bp including since admission No falls in past 3 months (0 pts) Confusion or Disorientation No (0 pts) Intoxicated or Sedated No (0 pts) Impaired Gait Yes (1 pt) Mobility Assist Device Used Yes (1 pt) Altered Elimination No (0 pt) Score/Fall Risk Level 0 - 2 = Low Risk Oriented to surroundings. Abuse screen: Denies threats or abuse. Denies injuries from another. Nutritional screening: No deficits noted. Tuberculosis screening: No symptoms or risk factors identified. Assessment: 09:50 General: Appears in no apparent distress. comfortable, Behavior is calm, cooperative, bp appropriate for age. 10:23 Reassessment: Patient appears in no apparent distress at this time. Patient is alert, bp oriented x 3, equal unlabored respirations, skin warm/dry/pink. Vital Signs: 09:37 BP 193 / 104; Pulse 79; Resp 16; Temp 98.3; Pulse Ox 100% on R/A; Pain 8/10; hb 09:37 Pain Scale: Adult hb ED Course: 09:19 Patient arrived in ED. mr 09:24 Aram Jamison MD is Attending Physician. rn 09:38 Triage completed. hb 09:50 Arm band placed on. bp 10:04 Sammy Licona MD is Referral Physician. rn 10:10 Chance Hendrix, TRISTEN is Primary Nurse. bp 10:23 Patient has correct armband on for positive identification. bp 10:23 No provider procedures requiring assistance completed. Patient did not have IV access bp during this emergency room visit. Administered Medications: No medications were administered Medication: 10:23 VIS not applicable for this client. bp Outcome: 10:06 Discharge ordered by . rn 10:23 Discharged to home via wheelchair, with family, bp 10:23 Condition: stable 10:23 Discharge instructions given to patient, family, Instructed on discharge instructions, follow up and referral plans. Demonstrated understanding of instructions, follow-up care, 10:25 Patient left the ED. bp Signatures: Katiuska Sorto, Reg Reg mr Aram Jamison MD MD rn Baxter, Heather, RN RN hb Chance Hendrix RN RN bp
[2024-06-04 16:07] VITALS: BP 193/104; TEMP 98.3; O2SAT 100
== END 2024-06-04 10:25 | disposition home or self-care (01) ==
LOC: ER 09:17
DX: K40.91 Unilateral inguinal hernia, without obstruction or gangrene, recurrent (principal); Z96.641 Presence of right artificial hip joint
CPT/HCPCS: 99282

== ENCOUNTER 2024-06-06 11:08 | Emergency (ER) | payer OTHER ==
[2024-06-06] MEDS ORDERED: TRAMADOL HCL 50 MG TAB ONE (12:22)
[2024-06-06 12:59] LABS: Absolute Eosinophils 0.2 K/uL (0-0.5); Absolute Lymphocytes (CBC) 1.1 K/uL (0.7-4.9); Absolute Monocytes 0.5 K/uL (0.1-1.3); Absolute Neutrophil 4.1 K/uL (1.8-8.0); Basophils % 0.7 % (0-1.3); Eosinophils % 2.7 % (0-4.4); Hematocrit 38.3 % (39.6-49.0); Hemoglobin 12.5 g/dL (13.6-17.9); Lymphocytes % 18.8 % (15.3-44.8); MCH 24.8 pg (27.0-35.0); MCHC 32.6 g/dL (32.0-36.0); MCV 76.2 fL (80-100); MPV 7.6 fL (7.6-11.3); Monocytes % 7.8 % (3.3-12.3); Nucleated Red Blood Cells % 0.1 % (0-0); Platelets 167 thou/uL (152-406); RBC Red Blood Cell Count 5.03 M/uL (4.33-5.43); Red Cell Distribution Width 19.1 % (12.1-15.2)
[2024-06-06 13:03] LABS: Specific Gravity 1.026 (1.005-1.030); Sqamous Epithelial <5 /HPF (None Seen); Urine Bacteria None Seen /HPF (<20); Urine Bilirubin NEGATIVE (Negative); Urine Blood Negative (Negative); Urine Clarity Clear (Clear); Urine Color Light-Yellow (Yellow); Urine Culture Reflex Order NOT NEEDED; Urine Glucose NEGATIVE (Negative); Urine Ketones NEGATIVE (Negative); Urine Microscopic Reflex YN ORDER UMIC; Urine Mucus Slight /HPF (None Seen); Urine Nitrite NEGATIVE (Negative); Urine Protein TRACE (Negative); Urine RBC <5 /HPF (None Seen); Urine Urobilinogen Normal (Normal); Urine WBC <5 /HPF (<5); Urine pH 6.5 (5.0-7.0)
[2024-06-06 13:15] LABS: Albumin 3.4 g/dL (3.4-5.0); Globulin 3.5 g/dL (2.3-3.5); Protein, Total 6.9 g/dL (6.4-8.2)
--- NOTE | 2024-06-06 13:50 | RAD REPORT ---
EXAMINATION: CT ABDOMEN AND PELVIS WITH CONTRAST CLINICAL INDICATION: Abdominal pain TECHNIQUE: CT abdomen and pelvis was performed, after the administration of 100 cc Isovue-300.. Sagit venessa and coronal reconstructions were obtained. One or more of the following dose reduction techniques were used: Automated exposure control, adjustment of the mA and kV according to patient si ze, and iterative reconstruction. Unless otherwise specified, incidental findings do not require dedicated imaging follow-up. [id number]. Oral contrast was not given which limits evaluation of bowel and appendix. COMPARISON: 2022 FINDINGS: Mild fatty liver The spleen, pancreas, right adrenal and right kidney appear unremarkable. Small left renal cyst. 1 cm left adrenal lesion Hounsfield unit 1 compatible with an adenoma is unchanged. No follow-up imag ing recommended. No evidence of diverticulitis. Normal appendix. 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 Small to moderate right hernia conta ins fat. Bilateral hip arthroplasties : IMPRESSION: [id number] right inguinal hernia
[2024-06-06] MEDS ORDERED: ACETAMINOPHEN 500 MG TAB ONE (14:23)
--- NOTE | 2024-06-06 15:00 | EDPHYS ---
Physician Documentation [facility] Name: Elias Molina Age: 83 yrs Sex: Male : 1940 Arrival Date: 06/06/2024 Time: 11:08 Bed 14 Private MD: ED Physician Berenice Daniel HPI: 06/06 14:51 This 83 yrs old Male presents to ER via Wheelchair with complaints of Groin Injury, Hip sd2 Pain. 14:51 83 yo M presents with CC of R inguinal pain and bilateral hip pain. Reports prior hx of sd2 R inguinal hernia that he has seen general surgery for but was seen in the ER 2 days ago and the hernia was reduced and he was sent home. Reports no significant trauma or issues but noticed more pain to the area as well as both of his hips which he has had a hip replacement on one side but not on the other. He reports he cannot tell if it is coming from his hernia or his hip. Taking Tylenol at home with some relief.. Historical: - Allergies: 11:37 No Known Allergies; kc6 - PMHx: 11:37 Hypertensive disorder; Hypercholesterolemia; Dementia; kc6 - PSHx: 11:37 Right hip replacement; kc6 - Immunization history:: Adult Immunizations up to date. - Infectious Disease History:: Denies. - Social history:: Smoking status: Patient denies any tobacco usage or history of. ROS: 14:51 Constitutional: Negative for fever, chills, and weight loss, Eyes: Negative for injury, sd2 pain, redness, and discharge, Cardiovascular: Negative for chest pain, palpitations, and edema, Respiratory: Negative for shortness of breath, cough, wheezing. Abdomen/GI: Negative for abdominal pain, nausea, vomiting, diarrhea. 14:51 Skin: Negative for injury, rash, and discoloration, 14:51 : Positive for inguinal pain, Negative for injury or acute deformity, burning with urination, 14:51 MS/extremity: Positive for pain, Negative for injury or acute deformity, swelling, Exam: 14:51 Constitutional: This is a well developed, well nourished patient who is awake, alert, sd2 and in no acute distress. Head/Face: Normocephalic, atraumatic. Eyes: EOMI, normal conjunctiva bilaterally Chest/axilla: Normal chest wall appearance and motion. Nontender with no deformity. Cardiovascular: Regular rate and rhythm with a normal S1 and S2. No gallops, murmurs, or rubs. 2+ distal pulses. Respiratory: Lungs have equal breath sounds bilaterally, clear to auscultation and percussion. No rales, rhonchi or wheezes noted. No increased work of breathing, no retractions or nasal flaring. Abdomen/GI: Soft, non-tender, with normal bowel sounds. No guarding or rebound. No evidence of tenderness throughout. Male : Normal genitalia with no discharge or lesions. No scrotal swelling or edema. No LAD. TTP along the right inguinal crease as well as at the anterior femoral head on both the left and right sides. Skin: Warm, dry with normal turgor. Normal color with no rashes, no lesions, and no evidence of cellulitis. MS/ Extremity: Pulses equal, no cyanosis. Neurovascular intact. Full, normal range of motion. Vital Signs: 11:34 BP 174 / 68; Pulse 53; Resp 16 S; Pulse Ox 98% on R/A; Weight 81.65 kg (R); Height 5 kc6 ft. 8 in. (R); Pain 0/10; 13:00 BP 151 / 98; Pulse 78; Pulse Ox 100% on R/A; MAP 115 mmHg; tm6 14:09 BP 201 / 100; Pulse 76; Pulse Ox 100% on R/A; MAP 126 mmHg; Pain 7/10; tm6 14:25 BP 186 / 96; Pulse 76; Pulse Ox 100% on R/A; MAP 120 mmHg; tm6 14:50 BP 174 / 97; Pulse 76; Resp 17; Temp 98.6(O); Pulse Ox 100% on R/A; MAP 116 mmHg; Pain tm6 2/10; 11:34 Body Mass Index 27.37 (81.65 kg, 172.72 cm) kc6 11:34 Pain Scale: Adult kc6 14:09 Pain Scale: Adult tm6 14:50 Pain Scale: Adult tm6 MDM: 12:09 Medical Screening Exam initiated sd2 14:51 Differential diagnosis: fracture, arthritis, SBO, strangulated hernia among others. sd2 Data reviewed: vital signs, nurses notes, lab test result(s), radiologic studies, CT scan. I considered the following discharge prescriptions or medication management in the emergency department Medications were administered in the Emergency Department. See MAR. Historians other than the Patient: Daughter/Son: Daughter at . Care significantly affected by the following chronic conditions: Hypertension, Dementia. Counseling: I had a detailed discussion with the patient and/or guardian regarding the historical points, exam findings, and any diagnostic results supporting the discharge/admit diagnosis, lab results, radiology results, the need for outpatient follow up, a general surgeon, to return to the emergency department if symptoms worsen or persist or if there are any questions or concerns that arise at home. ED course: Pt feeling improved with benign abdominal exam. Most of patient's pain is now on the left side at the femoral head. FROM intact. NVI. No visible palpable hernia or skin changes at site. Doubt strangulation or obstruction at this time. CT shows small to moderate hernia on the R side containing fat only. Pt sometimes will relate 10/10 pain then 0/10 pain very shortly thereafter so it is unclear with patient's dementia what he is actually feeling. I discussed the results with patient's daughter and he has a scheduled surgery appointment this Sunday. They would prefer to wait until that appointment and continue to monitor him at home and give Tylenol prn for pain. His BP did elevate during the stay after he became worked up in the room but has been consistently downtrending. Daughter also reports pt does not take his BP meds regularly and did not take them today. She will give them to him when they get home. No signs of end organ damage to require further treatment. Verbalizes understanding of dc plan and strict return precautions.. 06/06 12:20 Order name: CBC with Diff; Complete Time: 13:18 sd2 06/06 12:20 Order name: CMP; Complete Time: 13:18 sd2 06/06 12:20 Order name: Lipase; Complete Time: 13:18 sd2 06/06 12:20 Order name: Urinalysis w/ reflexes; Complete Time: 13:18 sd2 06/06 12:20 Order name: CT Abd/Pelvis - IV Contrast Only; Complete Time: 13:51 sd2 Administered Medications: 12:27 Drug: traMADol PO 50 mg PO once Route: PO; tm6 13:25 Follow up: Response: No adverse reaction tm6 14:27 Drug: Acetaminophen PO 1000 mg PO once Route: PO; tm6 15:14 Follow up: Response: No adverse reaction tm6 Disposition Summary: 06/06/24 14:59 Discharge Ordered Problem: an acute exacerbation sd2 Symptoms: have improved sd2 Condition: Stable sd2 Diagnosis - Inguinal hernia without obstruction or gangrene, right side sd2 - Bilateral hip pain sd2 Followup: sd2 - With: Private Physician - When: 2 - 3 days - Reason: Recheck today's complaints, Continuance of care, Re-evaluation by your physician Discharge Instructions: - Discharge Summary Sheet sd2 Forms: - Medication Reconciliation Form sd2 - Antibiotic Education sd2 - Prescription Opioid Use sd2 - Patient Portal Instructions sd2 - Leadership Thank You Letter sd2 Signatures: Dispatcher [employer] Berenice Quick MD MD sd2 Ghazala Benjamin RN RN kc6 Hair Rodriguez RN RN tm6
--- NOTE | 2024-06-06 15:00 | ER ---
Nurse's Notes [facility] Name: Elias Molina Age: 83 yrs Sex: Male : 1940 Arrival Date: 06/06/2024 Time: 11:08 Bed 14 Private MD: Diagnosis: Inguinal hernia without obstruction or gangrene, right side;Bilateral hip pain Presentation: 06/06 11:34 Chief complaint: Patient states: right groin/hip pain that started this morning after kc6 he "fell out of the bed." pt denies LOC. pt stats he has hernia in the same place. Coronavirus screen: At this time, the client does not indicate any symptoms associated with coronavirus-19. Ebola Screen: No symptoms or risks identified at this time. Initial Sepsis Screen: Does the patient meet any 2 criteria? No. Patient's initial sepsis screen is negative. Does the patient have a suspected source of infection? No. Patient's initial sepsis screen is negative. Risk Assessment: Do you want to hurt yourself or someone else? Patient reports no desire to harm self or others. Onset of symptoms was June 06, 2024. 11:34 Method Of Arrival: Wheelchair kc6 11:34 Acuity: TIRSO 3 kc6 Historical: - Allergies: 11:37 No Known Allergies; kc6 - PMHx: 11:37 Hypertensive disorder; Hypercholesterolemia; Dementia; kc6 - PSHx: 11:37 Right hip replacement; kc6 - Immunization history:: Adult Immunizations up to date. - Infectious Disease History:: Denies. - Social history:: Smoking status: Patient denies any tobacco usage or history of. Screenin:19 [facility] ED Fall Risk Assessment (Adult) History of falling in the last 3 months, tm6 including since admission Yes- single mechanical fall (1 pt) Confusion or Disorientation No (0 pts) Intoxicated or Sedated No (0 pts) Impaired Gait No (0 pts) Mobility Assist Device Used No (0 pt) Altered Elimination No (0 pt) Score/Fall Risk Level 0 - 2 = Low Risk Oriented to surroundings, Maintained a safe environment, Educated pt \\T\\ family on fall prevention, incl call for assistance when getting out of bed. Abuse screen: Denies threats or abuse. Denies injuries from another. Nutritional screening: No deficits noted. Tuberculosis screening: No symptoms or risk factors identified. Assessment: 12:49 General: Appears in no apparent distress. Behavior is calm, cooperative. Pain: tm6 Complains of pain in pelvis Pain currently is 8 out of 10 on a pain scale. Neuro: Level of Consciousness is awake, alert, obeys commands, Oriented to person, place, baseline dementia. Cardiovascular: Patient's skin is warm and dry. Respiratory: Airway is patent Respiratory effort is even, unlabored, Respiratory pattern is regular, symmetrical. GI: No signs and/or symptoms were reported involving the gastrointestinal system. Abdomen is flat, non-distended. : Reports pain in suprapubic area. EENT: No signs and/or symptoms were reported regarding the EENT system. Derm: No signs and/or symptoms reported regarding the dermatologic system. Musculoskeletal: Reports pain in pelvis. 13:26 Reassessment: Patient and/or family updated on plan of care and expected duration. Pain tm6 level reassessed. Patient is alert, oriented x 3, equal unlabored respirations, skin warm/dry/pink. 14:52 Reassessment: Patient and/or family updated on plan of care and expected duration. Pain tm6 level reassessed. Patient is alert, oriented x 3, equal unlabored respirations, skin warm/dry/pink. Vital Signs: 11:34 BP 174 / 68; Pulse 53; Resp 16 S; Pulse Ox 98% on R/A; Weight 81.65 kg (R); Height 5 kc6 ft. 8 in. (R); Pain 0/10; 13:00 BP 151 / 98; Pulse 78; Pulse Ox 100% on R/A; MAP 115 mmHg; tm6 14:09 BP 201 / 100; Pulse 76; Pulse Ox 100% on R/A; MAP 126 mmHg; Pain 7/10; tm6 14:25 BP 186 / 96; Pulse 76; Pulse Ox 100% on R/A; MAP 120 mmHg; tm6 14:50 BP 174 / 97; Pulse 76; Resp 17; Temp 98.6(O); Pulse Ox 100% on R/A; MAP 116 mmHg; Pain tm6 2/10; 11:34 Body Mass Index 27.37 (81.65 kg, 172.72 cm) kc6 11:34 Pain Scale: Adult kc6 14:09 Pain Scale: Adult tm6 14:50 Pain Scale: Adult tm6 ED Course: 11:12 Patient arrived in ED. sj2 11:20 Berenice Daniel MD is Attending Physician. sd2 11:37 Triage completed. kc6 11:37 Arm band placed on. kc6 12:06 Hair Rodriguez, RN is Primary Nurse. tm6 12:19 Patient has correct armband on for positive identification. Bed in low position. Call tm6 light in reach. Side rails up X 1. Provided Education on: use of call zelaya. Client placed on continuous cardiac and pulse oximetry monitoring. NIBP monitoring applied. Pulse ox on. NIBP on. Door closed. Noise minimized. 12:41 Inserted saline lock: 20 gauge in left antecubital area, using aseptic technique. Blood tm6 collected. Flushed with 10 mL NS. 12:49 Urinalysis w/ reflexes Sent. tm6 12:49 Lipase Sent. tm6 12:49 CMP Sent. tm6 12:49 CBC with Diff Sent. tm6 13:25 CT Abd/Pelvis - IV Contrast Only In Process Unspecified. EDMS 15:13 No provider procedures requiring assistance completed. IV discontinued, intact, tm6 bleeding controlled, No redness/swelling at site. Pressure dressing applied. Administered Medications: 12:27 Drug: traMADol PO 50 mg PO once Route: PO; tm6 13:25 Follow up: Response: No adverse reaction tm6 14:27 Drug: Acetaminophen PO 1000 mg PO once Route: PO; tm6 15:14 Follow up: Response: No adverse reaction tm6 Medication: 12:19 VIS not applicable for this client. tm6 Outcome: 14:59 Discharge ordered by . sd2 15:13 Discharged to home via wheelchair, with family, tm6 15:13 Condition: stable 15:13 Discharge instructions given to patient, family, Instructed on discharge instructions, follow up and referral plans. medication usage, Demonstrated understanding of instructions, follow-up care, 15:14 Patient left the ED. tm6 Signatures: Dispatcher [employer] EDMS Berenice Daniel MD MD sd2 Ghazala Benjamin RN RN kc6 Hair Rodriguez, TRISTEN RN tm6 PrabhakargucciCristiankingakristen sj2
[2024-06-07 03:40] VITALS: BP 174/97; TEMP 98.6; O2SAT 100
== END 2024-06-06 15:14 | disposition home or self-care (01) ==
LOC: ER 11:08
DX: K40.90 Unilateral inguinal hernia, without obstruction or gangrene, not specified as recurrent (principal); M25.551 Pain in right hip; M25.552 Pain in left hip; Z96.641 Presence of right artificial hip joint; I10 Essential (primary) hypertension; E78.00 Pure hypercholesterolemia, unspecified
CPT/HCPCS: 85025; 81001; 36415; 83690; 80053; 74177; 99284; Q9967

== ENCOUNTER 2024-07-14 19:10 | Emergency (ER) | payer OTHER ==
[2024-07-14 20:10] LABS: Absolute Basophils 0.1 K/uL (0-0.5); Absolute Eosinophils 0.2 K/uL (0-0.5); Absolute Lymphocytes (CBC) 1.2 K/uL (0.7-4.9); Absolute Monocytes 0.5 K/uL (0.1-1.3); Absolute Neutrophil 6.5 K/uL (1.8-8.0); Basophils % 0.7 % (0-1.3); Eosinophils % 2.9 % (0-4.4); Hematocrit 42.8 % (39.6-49.0); Hemoglobin 14.3 g/dL (13.6-17.9); Lymphocytes % 14.3 % (15.3-44.8); MCH 26.3 pg (27.0-35.0); MCHC 33.4 g/dL (32.0-36.0); MPV 8.2 fL (7.6-11.3); Neutrophils % 76.1 % (41.7-73.7); Nucleated Red Blood Cells % 0.2 % (0-0); Platelets 157 thou/uL (152-406); RBC Red Blood Cell Count 5.42 M/uL (4.33-5.43); Red Cell Distribution Width 19.4 % (12.1-15.2)
[2024-07-14 20:44] LABS: Anisocytosis 1+; Blood Morphology Comment NOTED (NOT SEEN); Platelet Estimate ADEQ; Poikilocytosis 1+; White Blood Cell Scan OK (OK)
[2024-07-14 20:45] LABS: Ovalocytes 1+; Polychromasia SLIGHT
[2024-07-14] MEDS ORDERED: ONDANSETRON 4 MG/2 ML VIAL ONE (20:53)
[2024-07-14] MEDS ORDERED: MORPHINE 4 MG/ML SYR ONE (20:54)
[2024-07-14 21:02] LABS: Albumin 3.6 g/dL (3.4-5.0); Albumin/Globulin Ratio 0.9 (1.1-1.8); Anion Gap 10.9 mEq/L (5.0-15.0); Bilirubin Total 0.9 mg/dL (0.2-1.0); Globulin 3.8 g/dL (2.3-3.5); Potassium 3.9 mEq/L (3.5-5.1); Protein, Total 7.4 g/dL (6.4-8.2)
--- NOTE | 2024-07-14 21:52 | RAD REPORT ---
EXAMINATION: ULTRASOUND DUPLEX OF SCROTUM AND TESTICLES CLINICAL INDICATION: Male, 83 years, PAIN TECHNIQUE: Duplex scan of the scrotal contents was performed including real-time color and spectral D oppler ultrasonography with arterial inflow and venous outflow. COMPARISON: No prior exam. FINDINGS: RIGHT TESTICLE AND EPIDIDYMIS: The right testicle is normal in size, measuring 3.5 x 2.4 x 3.2 cm. Normal, homogeneous echotexture with no focal lesion seen. The right epididymis is normal. Color Doppler flow in the right testicle is normal. Normal arterial and venous spectral Doppler waveforms are identified. Small hydrocele. No varicocele. LEFT TESTICLE AND EPIDIDYMIS: The left testicle is normal in size, measuring 4.0 x 2.9 x 3.4 cm. Normal, homogeneous echotexture with no focal lesion seen. The left epididymis is normal. Color Doppler flow in the left testicle is normal. Normal arterial and venous spectral Doppler waveforms are identified. No hydrocele. No varicocele. INGUINAL CANAL: No hernia. ADDITIONAL FINDINGS: None. IMPRESSION: Small right hydrocele. No other acute or significant abnormalities.
--- NOTE | 2024-07-14 22:31 | RAD REPORT ---
EXAMINATION: CT Abdomen Pelvis W Contrast CLINICAL INDICATION: Male, 83 years old. lower abdomen pain TECHNIQUE: CT abdomen and pelvis was performed, after the administration of IV contrast, [facility]. Axial, sagittal and coronal reconstructions were obtained. One or more of the following dose reduction techniques were used: Automated exposure control, adjustment of the mA and k V according to patient size, and iterative reconstruction. Unless otherwise specified, incidental findings do not require dedicated imaging follow-up. COMPARISON: 06/06/2024 FINDINGS: LOWER CHEST: The visualized lung bases are clear. LIVER: Normal in size and contour. No focal lesion. BILIARY SYSTEM: No suspicious abnormalities. SPLEEN: Normal size. No focal lesion. PANCREAS: No mass, ductal dilation, or markos-pancreatic fluid. 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 KIDNEYS: Normal size and contour. No hydronephrosis. URINARY BLADDER: Unremarkable. GASTROINTESTINAL TRACT: No evidence of free air, significant intra-abdominal free fluid, bowel obstru ction or abscess. Sequelae of gastrojejunostomy again seen. APPENDIX: Normal appendix. LYMPH NODES: No lymphadenopathy. MUSCULOSKELETAL: No acute or suspicious osseous abnormality. Bilateral hip arthroplasty hardware resu lts in streak artifact which limits evaluation pelvis. ADDITIONAL FINDINGS: Small left inguinal fat-containing hernia, stable. IMPRESSION: No acute or concerning abnormalities seen in the abdomen or pelvis. Stable incidental findings as abo ve.
[2024-07-14] MEDS ORDERED: HYDRALAZINE HCL 20 MG/ML VIAL ONE (23:01)
[2024-07-15] MEDS ORDERED: LORazepam 2 MG/ML VIAL ONE (00:05)
--- NOTE | 2024-07-15 00:07 | ER ---
Nurse's Notes [facility] Name: Elias Molina Age: 83 yrs Sex: Male : 1940 Arrival Date: 07/14/2024 Time: 19:10 Bed 8 Private MD: Diagnosis: Testicular pain, unspecified;Lower abdominal pain, unspecified;Hypertensive heart disease without heart failure;Unilateral inguinal hernia, without obstruction or gangrene Presentation: 07/14 19:13 Chief complaint: EMS states: toned out for scrotal pain. Patient has some hernias in me1 lower abdomen. Pain 8/10. Coronavirus screen: Vaccine status: Patient reports receiving the 2nd dose of the covid vaccine. Ebola Screen: No symptoms or risks identified at this time. Initial Sepsis Screen: Does the patient meet any 2 criteria? No. Patient's initial sepsis screen is negative. Does the patient have a suspected source of infection? No. Patient's initial sepsis screen is negative. Risk Assessment: Do you want to hurt yourself or someone else? Patient reports no desire to harm self or others. Onset of symptoms is unknown. 19:13 Method Of Arrival: EMS: [facility] 19:13 Acuity: TIRSO 3 me1 Triage Assessment: 19:16 General: Appears uncomfortable, well groomed, well developed, well nourished, Behavior me1 is calm, cooperative, appropriate for age. Pain: Complains of pain in groin Pain does not radiate. Pain currently is 8 out of 10 on a pain scale. Quality of pain is described as sharp, Pain began suddenly, Is continuous. EENT: No signs and/or symptoms were reported regarding the EENT system. Neuro: Level of Consciousness is awake, alert, obeys commands, Oriented to person, place, time, situation, Appropriate for age. Cardiovascular: Patient's skin is warm and dry. Respiratory: Airway is patent Trachea midline Respiratory effort is even, unlabored, Respiratory pattern is regular, symmetrical. GI: Abdomen is round Reports lower abdominal pain. : No signs and/or symptoms were reported regarding the genitourinary system. Derm: Skin is intact, is healthy with good turgor, Skin is pink, warm \T\ dry. Musculoskeletal: No signs and/or symptoms reported regarding the musculoskeletal system. Historical: - Allergies: 19:16 No Known Allergies; me1 - PMHx: 19:16 Dementia; Hypertensive disorder; Hypercholesterolemia; me1 - PSHx: 19:16 Right hip replacement; me1 - Immunization history:: Adult Immunizations unknown. - Infectious Disease History:: Denies. - Social history:: Smoking status: Patient denies any tobacco usage or history of. Screenin:18 [facility] ED Fall Risk Assessment (Adult) History of falling in the last 3 months, pa1 including since admission No falls in past 3 months (0 pts) Confusion or Disorientation Yes (5 pts) Intoxicated or Sedated No (0 pts) Impaired Gait No (0 pts) Mobility Assist Device Used No (0 pt) Altered Elimination No (0 pt) Score/Fall Risk Level 0 - 2 = Low Risk Maintained a safe environment, Provided non-skid footwear, Hourly rounding (assess needs \T\ fall precautionary measures) done. Abuse screen: Denies threats or abuse. Nutritional screening: No deficits noted. Tuberculosis screening: No symptoms or risk factors identified. Assessment: 19:18 General: POC. Verbalized understanding. . me1 21:45 Reassessment: No changes from previously documented assessment. Pt continues to c/o dd2 pain to the groin. Pt AAOx2. Patient states symptoms have not improved. Vital Signs: 19:13 BP 170 / 86; Pulse 72; Resp 16; Temp 97.5; Pulse Ox 100% ; Weight 81.65 kg; Height 5 me1 ft. 9 in. ; Pain 8/10; 21:00 BP 166 / 83; Pulse 92; Resp 16; Pulse Ox 100% on R/A; dd2 22:57 BP 184 / 95; Pulse 77; Resp 16; Pulse Ox 98% ; dd2 12 00:52 BP 180 / 89; Pulse 81; Resp 16; Temp 98.4; Pulse Ox 99% ; dd2 07/14 19:13 Body Mass Index 26.58 (81.65 kg, 175.26 cm) pa1 07/14 19:13 Pain Scale: Adult [facility] ED Course: 07/14 19:11 Patient arrived in ED. rv1 19:12 Anel Spear, TRISTEN is Primary Nurse. pa1 19:15 Royal Walters PA is PHCP. cp 19:15 Davin Meyer MD is Attending Physician. cp 19:16 Triage completed. me1 19:16 Arm band placed on Patient placed in an exam room. me1 19:18 Patient has correct armband on for positive identification. Bed in low position. Call me1 light in reach. Side rails up X2. Provided Education on: POC. Verbalized understanding. . Client placed on continuous cardiac and pulse oximetry monitoring. NIBP monitoring applied. Pulse ox on. NIBP on. 19:18 No provider procedures requiring assistance completed. me1 19:49 CBC with Diff Sent. me1 19:49 CMP Sent. me1 19:49 Lipase Sent. me1 20:35 Lab(s) recollected, by me, sent to lab. Inserted saline lock: 22 gauge in right cp4 antecubital area, using aseptic technique. Blood collected. Flushed with 10 mL NS. 21:00 Patient maintains SpO2 saturation greater than 95% on room air. dd2 21:15 US Scrotum Testicles In Process Unspecified. EDMS 21:43 CT Abd/Pelvis - IV Contrast Only In Process Unspecified. EDMS 12 00:52 IV discontinued, intact, bleeding controlled, No redness/swelling at site. Pressure dd2 dressing applied. Administered Medications: 07/14 20:59 Drug: morphine IVP or IV 4 mg IVP once over 4 mins Route: IVP; Infused Over: 4 mins; dd2 Site: right antecubital; 21:14 Follow up: Response: No adverse reaction dd2 20:59 Drug: Ondansetron IVP 4 mg IVP once; over 2 minutes Route: IVP; Site: right antecubital;dd2 21:14 Follow up: Response: No adverse reaction dd2 23:13 Drug: hydrALAZINE IVP 10 mg IVP once Route: IVP; Site: right antecubital; dd2 23:28 Follow up: Response: No adverse reaction dd2 07/15 00:16 Not Given (Physician Discretion): [id number] mg IVP once; if systolic pressure above dd2 175 00:16 Drug: Ativan IVP 0.5 mg IVP once Route: IVP; Site: right antecubital; dd2 00:31 Follow up: Response: No adverse reaction dd2 Medication: 07/14 19:18 VIS not applicable for this client. me1 Outcome: 07/15 00:07 Discharge ordered by . cp 00:52 Discharged to home via wheelchair, with family, dd2 00:52 Condition: stable 00:52 Discharge instructions given to family, Instructed on discharge instructions, follow up and referral plans. Demonstrated understanding of instructions, follow-up care, 00:55 Patient left the ED. dd2 Signatures: Dispatcher [employer] EDMS Royal Walters PA PA cp Villegas, Rebecca rv1 Anel Spear RN RN me1 Traci Boo cp4 PASCUAL HARRIS RN RN dd2
--- NOTE | 2024-07-15 00:07 | EDPHYS ---
Physician Documentation [facility] Name: Elias Molina Age: 83 yrs Sex: Male : 1940 Arrival Date: 07/14/2024 Time: 19:10 Bed 8 Private MD: ED Physician Davin Meyer HPI: 07/14 19:25 This 83 yrs old Male presents to ER via EMS with complaints of Scrotal Pain, Acute cp Onset. 19:25 The patient presents with scrotal pain, of both sides. cp Historical: - Allergies: 19:16 No Known Allergies; me1 - PMHx: 19:16 Dementia; Hypertensive disorder; Hypercholesterolemia; me1 - PSHx: 19:16 Right hip replacement; me1 - Immunization history:: Adult Immunizations unknown. - Infectious Disease History:: Denies. - Social history:: Smoking status: Patient denies any tobacco usage or history of. ROS: 19:30 Abdomen/GI: Positive for abdominal pain, of the lower abdomen, Negative for vomiting, cp diarrhea, 19:30 : Positive for testicular pain Negative for urinary symptoms, cp Vital Signs: 19:13 BP 170 / 86; Pulse 72; Resp 16; Temp 97.5; Pulse Ox 100% ; Weight 81.65 kg; Height 5 me1 ft. 9 in. ; Pain 8/10; 21:00 BP 166 / 83; Pulse 92; Resp 16; Pulse Ox 100% on R/A; dd2 22:57 BP 184 / 95; Pulse 77; Resp 16; Pulse Ox 98% ; dd2 07/15 00:52 BP 180 / 89; Pulse 81; Resp 16; Temp 98.4; Pulse Ox 99% ; dd2 07/14 19:13 Body Mass Index 26.58 (81.65 kg, 175.26 cm) me1 07/14 19:13 Pain Scale: Adult me1 MDM: 07/14 19:15 Medical Screening Exam initiated cp 07/14 19:21 Order name: CBC with Diff; Complete Time: 21:53 cp 07/14 21:54 Interpretation: Normal except: MCV 79.0; MCH 26.3; RDW 19.4; YOU% 76.1; LYM% 14.3. cp 07/14 19:21 Order name: CMP; Complete Time: 21:53 cp 07/14 19:21 Order name: Lipase; Complete Time: 21:53 cp 07/14 20:46 Order name: CBC Smear Scan; Complete Time: 21:53 EDMS 07/14 19:21 Order name: CT Abd/Pelvis - IV Contrast Only; Complete Time: 22:40 cp 07/15 00:08 Interpretation: Report reviewed. cp 07/14 19:21 Order name: US Scrotum Testicles; Complete Time: 21:53 cp 07/14 21:54 Interpretation: Report reviewed. cp 07/14 19:21 Order name: IV Saline Lock; Complete Time: 20:59 cp 07/14 19:21 Order name: Labs collected and sent; Complete Time: 19:49 cp 07/14 20:03 Order name: Misc. Order: RECOLLECT LIGHT GREEN; Complete Time: 20:50 rv1 07/14 22:41 Order name: PO challenge; Complete Time: 23:13 cp Administered Medications: 20:59 Drug: morphine IVP or IV 4 mg IVP once over 4 mins Route: IVP; Infused Over: 4 mins; dd2 Site: right antecubital; 21:14 Follow up: Response: No adverse reaction dd2 20:59 Drug: Ondansetron IVP 4 mg IVP once; over 2 minutes Route: IVP; Site: right antecubital;dd2 21:14 Follow up: Response: No adverse reaction dd2 23:13 Drug: hydrALAZINE IVP 10 mg IVP once Route: IVP; Site: right antecubital; dd2 23:28 Follow up: Response: No adverse reaction dd2 07/15 00:16 Not Given (Physician Discretion): [id number] mg IVP once; if systolic pressure above dd2 175 00:16 Drug: Ativan IVP 0.5 mg IVP once Route: IVP; Site: right antecubital; dd2 00:31 Follow up: Response: No adverse reaction dd2 Disposition Summary: 07/15/24 00:07 Discharge Ordered Notes: Location: Home cp Problem: new cp Symptoms: have improved cp Condition: Stable cp Diagnosis - Testicular pain, unspecified cp - Lower abdominal pain, unspecified cp - Hypertensive heart disease without heart failure cp - Unilateral inguinal hernia, without obstruction or gangrene cp Followup: cp - With: Private Physician - When: 2 - 3 days - Reason: Worsening of condition Discharge Instructions: - Discharge Summary Sheet cp - Abdominal Pain, Adult cp - Hypertension, Adult cp - Inguinal Hernia, Adult cp Forms: - Medication Reconciliation Form cp - Antibiotic Education cp - Prescription Opioid Use cp - Patient Portal Instructions cp - Leadership Thank You Letter cp Signatures: Dispatcher [employer] Royal Sifuentes PA PA cp Villegas, Rebecca rv1 Anel Spear RN RN me1 PASCUAL HARRIS RN RN dd2
[2024-07-15 04:41] VITALS: BP 180/89; TEMP 98.4; O2SAT 99
== END 2024-07-15 00:55 | disposition home or self-care (01) ==
LOC: ER 19:10
DX: N50.812 Left testicular pain (principal); N50.811 Right testicular pain; R10.30 Lower abdominal pain, unspecified; K40.90 Unilateral inguinal hernia, without obstruction or gangrene, not specified as recurrent; I11.9 Hypertensive heart disease without heart failure
CPT/HCPCS: 85025; 36415; 83690; 80053; 74177; 76870; 96375; 96374; 99284; Q9967; J0360; J2405

== ENCOUNTER 2024-07-29 13:02 | Inpatient (IN) | payer OTHER ==
[2024-07-29 13:35] LABS: Absolute Eosinophils 0.1 K/uL (0-0.5); Absolute Lymphocytes (CBC) 0.4 K/uL (0.7-4.9); Absolute Monocytes 0.5 K/uL (0.1-1.3); Absolute Neutrophil 12.4 K/uL (1.8-8.0); Basophils % 0.3 % (0-1.3); Eosinophils % 0.4 % (0-4.4); Hemoglobin 13.9 g/dL (13.6-17.9); Lymphocytes % 3.2 % (15.3-44.8); MCHC 31.7 g/dL (32.0-36.0); MCV 78.7 fL (80-100); MPV 7.4 fL (7.6-11.3); Monocytes % 3.7 % (3.3-12.3); Neutrophils % 92.4 % (41.7-73.7); Platelets 313 thou/uL (152-406); RBC Red Blood Cell Count 5.59 M/uL (4.33-5.43)
[2024-07-29] MEDS ORDERED: NA CHLORIDE 0.9% 500 ML ONE (13:40)
[2024-07-29 14:37] LABS: Blood Morphology Comment NOTED (NOT SEEN); Platelet Estimate ADEQ; Poikilocytosis 2+; White Blood Cell Scan OK (OK)
--- NOTE | 2024-07-29 14:48 | RAD REPORT ---
EXAMINATION: CT ABDOMEN AND PELVIS WITH CONTRAST CLINICAL INDICATION: Abdominal pain TECHNIQUE: CT abdomen and pelvis was performed, after the administration of 100 cc Isovue-300.. Sagit venessa and coronal reconstructions were obtained. One or more of the following dose reduction techniques were used: Automated exposure control, adjustment of the mA and kV according to patient si ze, and iterative reconstruction. Unless otherwise specified, incidental findings do not require dedicated imaging follow-up. [id number]. Oral contrast was not given which limits evaluation of bowel and appendix. COMPARISON: .July 14, 2024 FINDINGS: Extravasation of contrast from the right ureteral pelvic junction. The contrast and urine extend infe riorly and medially into the pelvis. Mild to moderate right hydronephrosis is present. Mild left hydronephrosis. Marked bladder distention Liver, spleen, pancreas and right adrenal gland unremarkable Small adenoma or myelolipoma. left adrenal gland Bilateral hip arthroplasties.. Small inguinal hernias. : IMPRESSION: Tear involving the right ureteral pelvic junction.
[2024-07-29 15:13] LABS: Specific Gravity 1.018 (1.005-1.030); Sqamous Epithelial None Seen /HPF (None Seen); Urine Bacteria None Seen /HPF (<20); Urine Bilirubin NEGATIVE (Negative); Urine Blood 2+ (Negative); Urine Clarity Clear (Clear); Urine Color Light-Yellow (Yellow); Urine Crystals Unidentified Few /HPF (None Seen); Urine Culture Reflex Order NOT NEEDED; Urine Glucose NEGATIVE (Negative); Urine Ketones NEGATIVE (Negative); Urine Microscopic Reflex YN ORDER UMIC; Urine Nitrite NEGATIVE (Negative); Urine Protein NEGATIVE (Negative); Urine RBC 21-50 /HPF (None Seen); Urine Urobilinogen Normal (Normal); Urine WBC <5 /HPF (<5)
--- NOTE | 2024-07-29 15:41 | ER ---
Nurse's Notes [facility] Name: Elias Molina Age: 83 yrs Sex: Male : 1940 Arrival Date: 07/29/2024 Time: 13:02 Bed 17 Private MD: Diagnosis: Tear in right UPJ Presentation: 07/29 13:10 Chief complaint: EMS states: they were called to the patients home by home health for ap3 the patient complaining of abdominal pain so bad he couldn't get out of bed. Coronavirus screen: At this time, the client does not indicate any symptoms associated with coronavirus-19. Ebola Screen: No symptoms or risks identified at this time. Initial Sepsis Screen: Does the patient meet any 2 criteria? HR > 90 bpm. No. Patient's initial sepsis screen is negative. Does the patient have a suspected source of infection? No. Patient's initial sepsis screen is negative. Risk Assessment: Do you want to hurt yourself or someone else? Patient reports no desire to harm self or others. Onset of symptoms is unknown. Care prior to arrival: Medication(s) given: Toradol 30mg IM. 13:10 Method Of Arrival: EMS: [facility] ap3 13:10 Acuity: [facility] 3 ap3 Triage Assessment: 13:12 General: Appears in no apparent distress. Behavior is calm, cooperative, appropriate ap3 for age. Pain: Complains of pain in abdomen. Neuro: Level of Consciousness is awake, alert, obeys commands, Oriented to person, place, Appropriate for age. Cardiovascular: Patient's skin is warm and dry. Respiratory: Airway is patent Respiratory effort is even, unlabored, Respiratory pattern is regular, symmetrical. GI: Reports lower abdominal pain, upper abdominal pain. Historical: - Allergies: 13:11 No Known Allergies; ap3 - PMHx: 13:11 Dementia; Hypercholesterolemia; Hypertensive disorder; ap3 - PSHx: 13:11 Right hip replacement; ap3 - Immunization history:: Adult Immunizations unknown. - Infectious Disease History:: Denies. - Social history:: Smoking status: unknown. Screenin:12 Abuse screen: Denies threats or abuse. Nutritional screening: No deficits noted. ap3 Tuberculosis screening: No symptoms or risk factors identified. 16:50 [facility] ED Fall Risk Assessment (Adult) History of falling in the last 3 months, ap3 including since admission Yes- fall prone (multiple falls) (3 pts) Confusion or Disorientation Yes (5 pts) Intoxicated or Sedated No (0 pts) Impaired Gait Yes (1 pt) Mobility Assist Device Used Yes (1 pt) Altered Elimination Yes (1 pt) Score/Fall Risk Level 3 or more points = High Risk Oriented to surroundings, Maintained a safe environment, Educated pt \T\ family on fall prevention, incl call for assistance when getting out of bed, Assessed \T\ reinforced patient's understanding of fall precautions, Hourly rounding (assess needs \T\ fall precautionary measures) done, Used ambulatory aids as needed (educated on \T\ assisted with), Used gait belt as appropriate Implemented a Fall Risk Plan of Care, Remained w/in arm's length of patient and in sight while toileting, Offered frequent toileting (1:1 observation), Remained with patient while ambulating, Utilized family, sitter, or virtual automotive parts salesperson as indicated. Assessment: 13:13 GI: Abdomen is tender to palpation. ap3 15:16 General: 1900ml urine drained from lópez. provider notified . ap3 16:50 Neuro: Oriented to person, place, Speech is normal. Cardiovascular: Patient's skin is ap3 warm and dry. Respiratory: Airway is patent Respiratory effort is even, unlabored, Respiratory pattern is regular, symmetrical. GI:. 16:56 GI: Bowel sounds. ap3 Vital Signs: 13:10 BP 136 / 80; Pulse 96; Resp 17; Temp 97.6(A); Pulse Ox 100% on R/A; ap3 15:20 BP 116 / 72; Pulse 71; Resp 19; Pulse Ox 100% on R/A; ap3 ED Course: 13:09 Patient arrived in ED. ap3 13:10 Laurel Carrington FNP-C is PHCP. kb 13:10 Aram Jamison MD is Attending Physician. kb 13:11 Triage completed. ap3 13:12 Arm band placed on right wrist. ap3 13:13 Patient has correct armband on for positive identification. Bed in low position. Call ap3 light in reach. Side rails up X2. Provided Education on: call light education. Pulse ox on. NIBP on. 13:21 Missy Almaraz, TRISTEN is Primary Nurse. ap3 13:32 CBC with Diff Sent. bc6 13:32 CMP Sent. bc6 13:32 Lipase Sent. bc6 13:32 Initial lab(s) drawn, by me, sent to lab. Inserted saline lock: 20 gauge in right bc6 antecubital area, using aseptic technique. Blood collected. Flushed with 10 mL NS. 13:52 CT Abd/Pelvis - IV Contrast Only In Process Unspecified. EDMS 14:49 López cath inserted, using sterile technique, 16 Fr., by me, balloon inflated, to ss gravity drainage, urine specimen collected. returned clear yellow urine. Patient tolerated well. 15:17 Client placed on continuous cardiac and pulse oximetry monitoring. NIBP monitoring ap3 applied. cardiac monitor on. 15:41 Gerber Jamison MD is Hospitalizing Provider. kb 15:56 CT Pelvis wo Cont In Process Unspecified. EDMS 16:51 No provider procedures requiring assistance completed. Patient admitted, IV remains in ap3 place. Administered Medications: 14:00 Drug: NS 0.9% IV 500 ml 500 ml IV at 1 bolus once; to be given as a bolus over 30 ap3 minutes Volume: 500 ml; Route: IV; Rate: 1 bolus; Site: right antecubital; 16:51 Follow up: IV Status: Completed infusion; IV Intake: 500ml ap3 Medication: 16:51 VIS not applicable for this client. ap3 Intake: 16:51 IV: 500ml; Total: 500ml. ap3 Output: 15:16 Urine: 1900ml (López); Total: 1900ml. ap3 Outcome: 15:41 Decision to Hospitalize by Provider. kb 16:51 Admitted to OR accompanied by nurse, via stretcher, with chart, ap3 16:51 Condition: good 16:56 Patient left the ED. ap3 Signatures: Dispatcher [employer] EDMS Laurel Carrington, SHELBI ORNELAS-Sherley Wong RN RN Missy Almaraz RN RN ap3 Marjan Rascon bc6
--- NOTE | 2024-07-29 15:41 | EDPHYS ---
Physician Documentation [facility] Name: Elias Molina Age: 83 yrs Sex: Male : 1940 Arrival Date: 07/29/2024 Time: 13:02 Bed 17 Private MD: ED Physician Aram Jamison HPI: 07/29 13:26 This 83 yrs old Male presents to ER via EMS with complaints of Abdominal Pain. kb 13:26 Pt is an 83 year old male who presents for abd pain. Home Health nurse went to pt's kb home and found pt to have abd tenderness. Pt was unable to do PT due to abd pain with any movement. Pt has a history of dementia so cannot provide ROS. Pt is at baseline mentation per EMS. Historical: - Allergies: 13:11 No Known Allergies; ap3 - PMHx: 13:11 Dementia; Hypercholesterolemia; Hypertensive disorder; ap3 - PSHx: 13:11 Right hip replacement; ap3 - Immunization history:: Adult Immunizations unknown. - Infectious Disease History:: Denies. - Social history:: Smoking status: unknown. ROS: 13:26 Constitutional: As per HPI kb Exam: 13:27 Constitutional: This is a well developed, well nourished patient who is awake, alert, kb and in no acute distress. Head/Face: Normocephalic, atraumatic. ENT: Moist Mucous membranes Cardiovascular: Regular rate Respiratory: Respirations even and unlabored. No increased work of breathing. Talking in full sentences Skin: Warm, dry with normal turgor. Normal color. MS/ Extremity: Pulses equal, no cyanosis. Neurovascular intact. Full, normal range of motion. 13:27 Abdomen/GI: Inspection: abdomen appears normal, Bowel sounds: normal, Palpation: moderate abdominal tenderness, in the right upper quadrant, right lower quadrant and left lower quadrant, Vital Signs: 13:10 BP 136 / 80; Pulse 96; Resp 17; Temp 97.6(A); Pulse Ox 100% on R/A; ap3 15:20 BP 116 / 72; Pulse 71; Resp 19; Pulse Ox 100% on R/A; ap3 MDM: 13:10 Medical Screening Exam initiated kb 13:27 Data reviewed: vital signs, nurses notes. Historians other than the Patient: EMS: [facility]. 15:39 Differential diagnosis: bowel obstruction, non-specific abd pain, Pyelonephritis, kb urinary tract infection. Consideration of Admission/Observation Patient was admitted/placed on observation. Escalation of care including admission/observation considered. Management of patient was discussed with the following: Hospitalist: Hospitalist team, accepted for admission under Dr Jamison. Buckle Gluer: Dr Parsons accepts pt for consult. Wants CT cystogram and NPO. Counseling: I had a detailed discussion with the patient and/or guardian regarding the historical points, exam findings, and any diagnostic results supporting the discharge/admit diagnosis, lab results, radiology results, the need for further work-up and treatment in the hospital. ED course: Daughter at bedside now. Discussed findings and need for admission. Verbal understanding received. States pt has been in bed for the last 2 weeks. States he gets up to the restroom with walker, then back to bed. . 07/29 13:15 Order name: CBC with Diff; Complete Time: 14:39 kb 07/29 13:15 Order name: CMP kb 07/29 13:15 Order name: Lipase kb 07/29 13:15 Order name: Urinalysis w/ reflexes; Complete Time: 15:14 kb 07/29 13:38 Order name: CBC Smear Scan; Complete Time: 14:39 EDMS 07/29 13:15 Order name: CT Abd/Pelvis - IV Contrast Only; Complete Time: 14:51 kb 07/29 15:14 Order name: CT Pelvis wo Cont; Complete Time: 16:16 kb 07/29 16:16 Order name: CONS Physician Consult EDMS 07/29 13:15 Order name: IV Saline Lock; Complete Time: 13:32 kb 07/29 13:15 Order name: Labs collected and sent; Complete Time: 13:32 kb 07/29 13:41 Order name: Labs - recollect needed: recollect green top; Complete Time: 14:00 bd 07/29 14:11 Order name: Labs - recollect needed: recollect green top again; Complete Time: 14:49 bd 07/29 14:41 Order name: Richardson; Complete Time: 14:49 kb 07/29 15:21 Order name: NPO; Complete Time: 15:22 kb Administered Medications: 14:00 Drug: NS 0.9% IV 500 ml 500 ml IV at 1 bolus once; to be given as a bolus over 30 ap3 minutes Volume: 500 ml; Route: IV; Rate: 1 bolus; Site: right antecubital; 16:51 Follow up: IV Status: Completed infusion; IV Intake: 500ml ap3 Disposition: 18:12 Co-signature as Attending Physician, Aram Jamison MD I reviewed the patient's care rn provided by the Advanced Practice Provider and agree with the diagnosis and treatment plan. Disposition Summary: 07/29/24 15:41 Hospitalization Ordered Notes: Hospitalization Status: Inpatient Admission kb Provider: Gerber Jamison Location: Telemetry/MedSurg (Inpatient) kb Condition: Stable kb Problem: new kb Symptoms: are unchanged kb Bed/Room Type: Standard Room Assignment: 214(07/29/24 16:37) bd Diagnosis - Tear in right UPJ kb Forms: - Medication Reconciliation Form kb - SBAR form kb - Leadership Thank You Letter kb Signatures: Dispatcher [employer] EDLaurel Martell, CECI-C APPLICATION TECHNICIAN-CkChristy Patel Roman, MD MD rn Prokisch, Amanda, RN RN ap3 Corrections: (The following items were deleted from the chart) 13:27 13:26 Pt is an 83 year old male who presents for abd pain. Home Health nurse went to pt's home and found pt to have abd tenderness. Pt was unable to do PT due to abd pain with any movement. . kb 13:27 13:26 Pt is an 83 year old male who presents for abd pain. Home Health nurse went to pt's home and found pt to have abd tenderness. Pt was unable to do PT due to abd pain with any movement. Pt has a history of dementia so cannot provide ROS. . kb 15:14 15:14 Pelvis Wo Cont+CT.RAD.BRZ ordered. EDMS EDMS 15:46 15:39 ED course: Daughter at bedside now. Discussed findings and need for admission. kb Verbal understanding received. . kb 16:37 15:41 kb bd
--- NOTE | 2024-07-29 16:15 | RAD REPORT ---
EXAMINATION: CT PELVIS WITHOUT CONTRAST CLINICAL INDICATION: Pelvic pain TECHNIQUE: CT pelvis was performed,. Unenhanced images obtained. Subsequently Cystografin was placed into the bl adder via a Richardson catheter. Axial, sagittal and coronal reconstructions were obtained. One or more of the following dose reduction techniques were used: Automated exposure control, adjustm ent of the mA and/or kV according to patient size, and/or iterative reconstruction. Unless otherwise specified, incidental findings do not require dedicated imaging follow-up. COMPARISON: CT abdomen July 29, 2024 and April 2023 FINDINGS: A Richardson catheter has been placed into the bladder. The bladder has become decompressed since the prio r exam. Cystografin was then placed into the bladder via a Richardson catheter. 3 mm collection of contrast extends into the wall of the bladder within the anterior superior aspect to the right of midline. Mucosal folds of the bladder appear normal. Prostatic enlargement. 14 area sclerosis left ilium unchanged from 2022 IMPRESSION: 3 mm collection of contrast extends into the wall of the bladder within the anterior superior aspect to the right of midline.. This may represent a small tear. However, it appears contained as there is no extravesical extravasation of contrast. Another consideration is that it represents a very smal l trabeculation. 1.4 cm area sclerosis within the left ilium is unchanged and presumably is benign. Slow growing neopl asm is considered less likely. Follow-up x-ray in one year recommended to reassess stability
--- NOTE | 2024-07-29 16:23 | P.HP ---
Certification for Inpatient Patient admitted to: Inpatient With expected LOS: >2 Midnights Patient will require the following post-hospital care: None Practitioner: I am a practitioner with admitting privileges, knowledge of patient current condition, hospital course, and medical plan of care. Services: Services provided to patient in accordance with Admission requirements found in Title 42 Section 412.3 of the Code of Federal Regulations Patient History Date of Service: 07/29/24 Reason for admission: Ureteral tear, urinary retention History of Present Illness: 83-year-old male with history of dementia, hypertension, hyperlipidemia presented to the emergency department with chief complaint of abdominal pain for 1 to 2 weeks. Patient has history of dementia and is unable to really explain his symptoms much, lives at home with his and has home health which started today. Patient was evaluated in the emergency department his labs were significant for a white blood cell count 13.5 hemoglobin 13.9 hematocrit 44 platelets 313, chemistry is pending. CT abdomen pelvis with IV contrast was performed which showed a tear involving the right ureteral pelvic junction. Richardson catheter was also placed for urinary retention and patient put out around 2 L of urine so far. Urology was urgently consulted while patient was in the ED by ED staff and plans to take the patient to the OR urgently. Patient was admitted to the hospital service for further management. Allergies No Known Allergies Allergy (Verified 07/01/24 15:31) Home Medications: Metoprolol Succinate 25 mg PO BID 07/01/24 Rivastigmine Patch [Exelon 4.6 mg Patch] 1 each TD DAILY 07/01/24 - Past Medical/Surgical History Diabetic: No -: Hypertension -: Hyperlipidemia -: Dementia -: Bilateral hip replacement Psychosocial/ Personal History: Patient lives at home with his - Social History Alcohol use: No CD- Drugs: No Caffeine use: Yes Place of Residence: Home Review of Systems 10-point ROS is otherwise unremarkable Gastrointestinal: Abdominal Pain Physical Examination - Physical Exam General: Alert, In no apparent distress, Oriented x2 HEENT: Atraumatic, PERRLA, EOMI Neck: Supple, 2+ carotid pulse no bruit, No LAD, Without JVD or thyroid abnormality Respiratory: Clear to auscultation bilaterally, Normal air movement Cardiovascular: Regular rate/rhythm, Normal S1 S2 Gastrointestinal: Normal bowel sounds, No tenderness Integumentary: No rashes Neurological: Normal gait, Normal speech, Normal strength at 5/5 x4 extr, Normal affect Urinary: Richardson catheter - Studies Laboratory Data (last 24 hrs) 07/29/24 13:30 WBC 13.50 H Hgb 13.9 Hct 44.0 Plt Count 313 Assessment and Plan - Plan Assessment: Right ureteral tear, urinary retention S/P Richardson catheter placement Dementia Hypertension Hyperlipidemia Plan: Right ureteral tear, urinary retention S/P Richardson catheter placement Urology contacted while patient was in ED Plan for operative management today On empiric antibiotics with Zosyn Richardson catheter placed in ED with 2 L output Chemistry pending at this time-will follow-up Dementia Hypertension Hyperlipidemia Continue home medications when verified, chemistry reviewed DVT PPX: SCDs Code status: Full Discharge Plan: Home - Advance Directives Does patient have a Living Will: Yes Does patient have a Durable POA for Healthcare: Yes - Code Status/Comfort Care Code Status Assessed: Yes (Full code) Critical Care: No Time Spent Managing Pts Care (In Minutes): 59
[2024-07-29] MEDS: Ringers Lactate 1,000 ML IV ONE (17:00)
[2024-07-29] MEDS ORDERED: propofoL 200 MG/20 ML VIAL IV ONE (17:13)
[2024-07-29] MEDS: CEFTRIAXONE 1,000 MG in NA CHLORIDE 0.9% 50 ML IVPB ONE (18:00)
--- NOTE | 2024-07-29 18:10 | P.CNS ---
Date of Consult: 07/29/24 Reason for Consult: Pelvocalyceal extravasation Chief Complaint: Ureteral tear, urinary retention History of Present Illness: 83-year-old gentleman with dementia, hypercholesterolemia and hypertension presents with 1.5 to 2 weeks of abdominal pain. Apparently, this progressed over time such that he was essentially bed ridden, and the home care nurse observed him and sent him via EMS for evaluation at the emergency department. He denied any associated fevers and chills, and he denied any nausea or vomiting. He has been wearing depends undergarments for months, though he denies any problems urinating. He has had chronic dementia for over a year. He is a former [employer], and his memory seems to extend back to that time. Past medical history: As above Past surgical history: Right hip replacement No known drug allergies Social history: Former smoker but quit in the Family history: No urologic malignancy Examination: Patient well-appearing and in no acute distress Alert, awake, oriented to person only No dyspnea or sign of respiratory distress No cervical/supraclavicular adenopathy or thyromegaly Abdomen soft and nontender at this time No lower extremity tenderness noted Urethral Richardson catheter in place 07/29/2024 WBC 13.5, hemoglobin 13.9, platelets 313, chemistry panel pending, UA micro 2+ heme, 21-50 RBCs per hpf 07/29/2024 CT abdomen and pelvis with contrast impression: Tear involving the right UPJ. I requested the emergency department complete a CT cystogram given the degree of obstruction. 07/29/2024 CT cystogram impression: 3 mm collection of contrast extends into the wall of the bladder within the anterior superior aspect to the right of midline. This may represent a small tear; however it appears contained as there is no extravesical extravasation of contrast. Another consideration is that it represents a very small trabeculation. Findings: 14 mm area of sclerosis left ilium unchanged from 2022. Richardson catheter and bladder. Assessment and recommendation: 83-year-old gentleman with dementia, hypercholesterolemia and hypertension with bladder distention to the level of the umbilicus causing severe abdominal pain and lethargy as well as bilateral hydroureteronephrosis with pelvocalyceal rupture and extravasation on the right side in the absence of intraperitoneal bladder rupture and in the setting of longstanding incontinence requiring depends undergarments. -Operative evaluation and management today via cystoscopy with right retrograde pyelography and stent placement. I did family service counselor the family on the potential need for percutaneous nephrostomy tube placement as well as the need for prolonged urethral Richardson catheterization for at least 2 weeks to allow his system to recover and the pelvocalyceal rupture to heal. I did explain the need for outpatient evaluation to determine the underlying e tiology of his urinary retention and to provide correction where applicable. Risks of the surgery were discussed to include infection, urethral stricture, and inability to achieve desired result as well as need for percutaneous nephrostomy placement. -Flomax 0.4 mg daily recommended to start postoperatively -Careful hospital management required with attention given to the potential and likely development of postobstructive diuresis. As a result, I would recommend the following: a) Maintenance IV fluids per routine b) replace urine output with D5 half-normal saline +/- KCl at half cc per cc of urine output measured every 4 hours c) once Is = Os, discontinue replacement IVFs and wean maintenance IVF depending on his ability to take adequate oral intake of fluid -Follow-up in about 2-3 weeks time for active voiding trial in the urology clinic via nursing visit, but will have a low threshold for reinsertion of the Richardson catheter, given his inability to appropriately appreciate when a problem exists given his dementia. Therefore, if he is unable to void at least 65%, approximately two thirds of the volume instilled at active voiding trial, a catheter should be reinserted. Ciprofloxacin 500 mg p.o. may be provided at the time of voiding trial, presuming hospital urine culture returns no growth today. -Subsequent evaluation with me for cystoscopy and potentially urodynamics evaluation will be required and should be scheduled in the clinic -Obtain a PSA about 1 week prior to follow-up for cystoscopy Allergies No Known Allergies Allergy (Verified 07/01/24 15:31) Home medications list reviewed: Yes Home Medications: Metoprolol Succinate 25 mg PO BID 07/01/24 Rivastigmine Patch [Exelon 4.6 mg Patch] 1 each TD DAILY 07/01/24 Aspirin [Aspirin EC 81 MG] 81 mg PO DAILY 07/29/24 Meloxicam 15 mg PO DAILY 07/29/24 Rosuvastatin Calcium 5 mg PO DAILY 07/29/24 - Past Medical/Surgical History Diabetic: No -: Hypertension -: Hyperlipidemia -: Dementia -: Bilateral hip replacement Psychosocial/ Personal History: Patient lives at home with his - Social History Smoking Status: Unknown if ever smoked Alcohol use: No CD- Drugs: No Caffeine use: Yes Place of Residence: Home Physical Examination Temp Pulse Resp BP Pulse Ox 97.6 F 71 19 116/72 07/29/24 13:10 07/29/24 15:20 07/29/24 15:20 07/29/24 15:20 Laboratory Data (last 24 hrs) 07/29/24 13:30 WBC 13.50 H Hgb 13.9 Hct 44.0 Plt Count 313 - Problems (1) Rupture of renal pelvis Current Visit: Yes Status: Acute (2) Urinary retention Current Visit: Yes Status: Acute (3) Incontinence of urine Current Visit: Yes Status: Acute Qualifiers: Urinary Incontinence type: unspecified incontinence Qualified Code(s): R32 - Unspecified urinary incontinence (4) Bilateral hydronephrosis Current Visit: Yes Status: Acute (5) BPH loc w urin obs/LUTS Current Visit: Yes Status: Acute Conclusions/Impression: see A&P in HPI Critical Care: No Time Spent Managing Pts care (In Minutes): 35
[2024-07-29] MEDS: LIDOCAINE JELLY 2% 5 ML SYRINGE TOP ONE (18:35)
--- NOTE | 2024-07-29 19:15 | P.OP ---
Date of Service: 07/29/24 Preoperative diagnoses: 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 Bilateral hydronephrosis Urinary retention with likely overflow incontinence BPH with LUTS Postoperative diagnoses: 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 Bilateral hydronephrosis Urinary retention with likely overflow incontinence BPH with LUTS Principal procedures: Cystoscopy Right retrograde pyelography Right 7 Icelandic by 26 cm JJ ureteral stent placement 18 Icelandic coud urethral Richardson catheter placement/exchange Cystogram Findings: Non-discrete right pelvocalyceal system rupture without bladder rupture identified. Indications for procedures: 83-year-old gentleman with dementia, hypertension and hypercholesterolemia and longstanding incontinence requiring depends undergarments presented via the emergency department with acute urinary retention with bladder extended to the level of the umbilicus associated with bilateral hydronephrosis, right greater than left, and right pelvocalyceal system rupture and extravasation. Procedure note: The patient's daughter provided consent on the patient's behalf in the preoperative holding area before the patient was transferred to the operative suite where general anesthesia using an LMA was induced. He was given ceftriaxone 1 g IV antimicrobial prophylaxis, and pneumoboots were provided for DVT prophylaxis. He was placed in the lithotomy position, padded and secured to the table appropriately. His perineal and rectal area was cleansed of stool using Hibiclens sponge before his genitalia was prepped with Hibiclens after the indwelling urethral Richardson catheter was removed. He was then draped accordingly. A lidocaine Uro-Jet was applied intraurethrally for local anesthesia. A 22 Icelandic rigid cystoscope was then used to traverse the urethra and into the bladder with relative ease. The following were the cystoscopic findings: -Meatus patent -Urethra -no stricture disease noted -Prostatic urethra with interdigitating lateral lobar hypertrophy, moderately elevated median bar with intravesical projection abutting the trigone and obscuring the ureteral orifices bilaterally. -Bladder -mild to moderately trabeculated throughout with no obvious papillary mucosal lesions, foreign bodies or stones. I then used the tip of a sensor wire to cannulate the right ureteral orifice and passed a 5 Icelandic ureteral access catheter over the wire into the distal ureteral orifice. A retrograde study was then performed. Right retrograde pyelography: Using a 70: 30 mixture of Omnipaque and saline, contrast was injected via the lumen of the 5 Icelandic ureteral access catheter and did propagate up the distal into the mid and proximal ureter before entering the renal pelvis and calyces. There was mild to moderate tortuosity of the ureter and dilatation of the ureter from the UVJ into the renal pelvis. There was pelvocaliectasis that was moderate. No immediate large source of extravasation was noted, but over time, contrast was noted to leak from the collecting system and emanate into the retroperitoneal space around the renal pelvis. This was observed with additional bolus of 100% contrast injection. I then advanced the sensor wire up to the 5 Icelandic ureteral access catheter and successfully into the upper pole of the right kidney as evidenced f luoroscopically. Over the sensor wire, I passed a 7 Icelandic by 26 cm double-J ureteral stent with a coil observed fluoroscopically in the upper pole calyx and 1 cystoscopically formed in his bladder. I then observed the kidney to decompress and the residual contrast extravasated outside of the renal pelvis and collecting system. I allowed the kidney to completely decompress and then passed a 18 Icelandic urethral Richardson catheter via his urethra into his bladder with ease. 15 cc of sterile water was placed in the balloon. [place] cystogram: Using a 50-50 mixture of Cysto-Conray and saline, I utilized a catheter tip syringe to fill his bladder under gravity with approximately 400 cc of the Cysto-Conray mixture until his bladder was distended. No evidence of intraperitoneal or extraperitoneal contrast extravasation was noted in or around the bladder. Contrast did emanate up the stent and fill the right pelvocalyceal system again, and again, with that reflux, extravasation of contrast was again noted confirming the rupture of the pelvicalyceal system and not the bladder. As a result, I decompressed his bladder of fluid and urine, and connected the catheter to a floor bag. He was then taken out of the lithotomy position, awakened from general anesthesia, transferred to a stretcher, and then to the recovery room in good condition. Complications: None Discharge disposition: Since we completed the cystoscopic evaluation here in the OR and confirmed obstruction due to BPH, and outpatient cystoscopy will not distinctly be required. Instead, we will plan on TRUS as an outpatient to be scheduled after he has been given the voiding trial via nursing visit in about 2 weeks time as discussed in my initial consultation note. PSA prior to follow-up for TRUS, hopefully after the catheter has been removed successfully and remains out, given the more stringent active voiding trial criteria to be used, 65 to 70% minimum voided relative to the volume instilled. Flomax 0.4 mg daily. Watch for postobstructive diuresis and consider management as discussed in my consultation note assessment and plan.
[2024-07-29 19:20] LABS: Albumin 2.2 g/dL (3.4-5.0); Albumin/Globulin Ratio 0.5 (1.1-1.8); Anion Gap 18.4 mEq/L (5.0-15.0); Bilirubin Total 0.4 mg/dL (0.2-1.0); Globulin 4.1 g/dL (2.3-3.5); Potassium 5.4 mEq/L (3.5-5.1); Protein, Total 6.3 g/dL (6.4-8.2)
[2024-07-29 19:39] VITALS: O2SAT 100
--- NOTE | 2024-07-29 19:42 | RAD REPORT ---
EXAMCystography CLINICAL HISTORY: Abdominal pain FINDINGS: 20 fluoroscopic spot images obtained. Fluoroscopy time 0.3 minutes. The right ureter was cannulated and contrast administered. A right ureteral stent was placed. Contrast was also administrated bladder via a Richardson catheter Extravasation of contrast in the region of the right ureteral pelvic junction is present. No bladder extravasation The procedure performed by Dr. Dixon
[2024-07-29] MEDS: NA CHLORIDE 0.9% 1,000 ML ONE (20:35)
[2024-07-29] MEDS: PIPER TAZO 3.375 GM in NA CHLORIDE 0.9% 100 ML IV SCH (20:51)
[2024-07-29] MEDS: NA CHLORIDE 0.9% 1,000 ML IV SCH (20:51)
[2024-07-30 02:33] VITALS: BMI 25.8
[2024-07-30 04:40] LABS: Absolute Eosinophils 0.1 K/uL (0-0.5); Absolute Lymphocytes (CBC) 0.3 K/uL (0.7-4.9); Absolute Monocytes 0.8 K/uL (0.1-1.3); Basophils % 0.2 % (0-1.3); Eosinophils % 0.9 % (0-4.4); Hemoglobin 11.8 g/dL (13.6-17.9); Lymphocytes % 2.8 % (15.3-44.8); MCH 24.9 pg (27.0-35.0); MPV 7.5 fL (7.6-11.3); Monocytes % 7.2 % (3.3-12.3); Platelets 251 thou/uL (152-406); RBC Red Blood Cell Count 4.75 M/uL (4.33-5.43)
[2024-07-30 04:41] LABS: Neutrophils % 88.9 % (41.7-73.7)
[2024-07-30 05:06] LABS: Anion Gap 8.2 mEq/L (5.0-15.0); Potassium 5.2 mEq/L (3.5-5.1)
--- NOTE | 2024-07-30 08:46 | P.CNS ---
Date of Consult: 07/30/24 Reason for Consult: KAMARI Requesting Physician: Gerber Jamison Chief Complaint: Ureteral tear, urinary retention History of Present Illness: 83-year-old male with history of dementia, hypertension, hyperlipidemia presented to the emergency department with chief complaint of abdominal pain for 1 to 2 weeks. Patient has history of dementia and is unable to really explain his symptoms much, lives at home with his and has home health which started today. Patient was evaluated in the emergency department his labs were significant for a white blood cell count 13.5 hemoglobin 13.9 hematocrit 44 platelets 313, chemistry is pending. CT abdomen pelvis with IV contrast was performed which showed a tear involving the right ureteral pelvic junction. Richardson catheter was also placed for urinary retention and patient put out around 2 L of urine so far. Urology was urgently consulted while patient was in the ED by ED staff and plans to take the patient to the OR urgently. Patient was admitted to the hospital service for further management. [id number] 13:26 This 83 yrs old Male presents to ER via EMS with complaints of Abdominal Pain. kb 13:26 Pt is an 83 year old male who presents for abd pain. Home Health nurse went to pt's kb home and found pt to have abd tenderness. Pt was unable to do PT due to abd pain with any movement. Pt has a history of dementia so cannot provide ROS. Pt is at baseline mentation per EMS. Allergies No Known Allergies Allergy (Verified 07/01/24 15:31) Home medications list reviewed: Yes Home Medications: Metoprolol Succinate 25 mg PO BID 07/01/24 Rivastigmine Patch [Exelon 4.6 mg Patch] 1 each TD DAILY 07/01/24 Aspirin [Aspirin EC 81 MG] 81 mg PO DAILY 07/29/24 Meloxicam 15 mg PO DAILY 07/29/24 Rosuvastatin Calcium 5 mg PO DAILY 07/29/24 - Past Medical/Surgical History Diabetic: No -: Dementia -: HTN -: Sciatic nerve pain -: Bilateral hip replacement -: Tumor removed from abdomen 2022 Psychosocial/ Personal History: Patient lives at home with his - Family History Sister Medical History: Other (see notes) Notes: Alzheimer's Brother Medical History: Heart disease Notes: Alzheimer's Father Medical History: Heart disease Mother Medical History: Stroke - Social History Smoking Status: Unknown if ever smoked Alcohol use: No CD- Drugs: No Caffeine use: Yes Place of Residence: Home Review of Systems 10-point ROS is otherwise unremarkable Neurological: Confusion Physical Examination Temp Pulse Resp BP Pulse Ox 97.7 F 104 H 18 142/77 H 98 07/30/24 04:00 07/30/24 04:00 07/30/24 04:00 07/30/24 04:00 07/30/24 04:00 General: In no apparent distress, Cooperative, Confused HEENT: Atraumatic Neck: Supple Respiratory: Clear to auscultation bilaterally, Normal air movement Cardiovascular: No edema, Regular rate/rhythm Gastrointestinal: Soft and benign, Non-distended Musculoskeletal: No clubbing, No contractures Integumentary: No rashes, No cyanosis Neurological: Normal speech Urinary: Richardson catheter Laboratory Data (last 24 hrs) 07/29/24 13:30 WBC 13.50 H Hgb 13.9 Hct 44.0 Plt Count 313 Imagings Data: [address] EXAMCystography CLINICAL HISTORY: Abdominal pain FINDINGS: 20 fluoroscopic spot images obtained. Fluoroscopy time 0.3 minutes. The right ureter was cannulated and contrast administered. A right ureteral stent was placed. Contrast was also administrated bladder via a Richardson catheter Extravasation of contrast in the region of the right ureteral pelvic junction is present. No bladder extravasation The procedure performed by Dr. Dixon [id number] EXAMINATION: CT ABDOMEN AND PELVIS WITH CONTRAST CLINICAL INDICATION: Abdominal pain TECHNIQUE: CT abdomen and pelvis was performed, after the administration of 100 cc Isovue-300.. Sagittal and coronal reconstructions were obtained. One or more of the following dose reduction techniques were used: Automated exposure control, adjustment of the mA and kV according to patient size, and iterative reconstruction. Unless otherwise specified, incidental findings do not require dedicated imaging follow-up. [id number]. Oral contrast was not given which limits evaluation of bowel and appendix. COMPARISON: .July 14, 2024 FINDINGS: Extravasation of contrast from the right ureteral pelvic junction. The contrast and urine extend inferiorly and medially into the pelvis. Mild to moderate right hydronephrosis is present. Mild left hydronephrosis. Marked bladder distention Liver, spleen, pancreas and right adrenal gland unremarkable Small adenoma or myelolipoma. left adrenal gland Bilateral hip arthroplasties.. Small inguinal hernias. : IMPRESSION: Tear involving the right ureteral pelvic junction. [id number] EXAMINATION: CT PELVIS WITHOUT CONTRAST CLINICAL INDICATION: Pelvic pain TECHNIQUE: CT pelvis was performed,. Unenhanced images obtained. Subsequently Cystografin was placed into the bladder via a Richardson catheter. Axial, sagittal and coronal reconstructions were obtained. One or more of the following dose reduction techniques were used: Automated exposure control, adjustment of the mA and/or kV according to patient size, and/or iterative reconstruction. Unless otherwise specified, incidental findings do not require dedicated imaging follow-up. COMPARISON: CT abdomen July 29, 2024 and April 2023 FINDINGS: A Richardson catheter has been placed into the bladder. The bladder has become dec ompressed since the prior exam. Cystografin was then placed into the bladder via a Richardson catheter. 3 mm collection of contrast extends into the wall of the bladder within the anterior superior aspect to the right of midline. Mucosal folds of the bladder appear normal. Prostatic enlargement. 14 area sclerosis left ilium unchanged from 2022 IMPRESSION: 3 mm collection of contrast extends into the wall of the bladder within the anterior superior aspect to the right of midline.. This may represent a small tear. However, it appears contained as there is no extravesical extravasation of contrast. Another consideration is that it represents a very small trabeculation. 1.4 cm area sclerosis within the left ilium is unchanged and presumably is benign. Slow growing neoplasm is considered less likely. Follow-up x-ray in one year recommended to reassess stability Conclusions/Impression: Stage III KAMARI in the setting of obstruction complicated by Meloxicam -No NSAIDs -Continue IVF -Continue Richardson Hypernatremia/ Dehydration -Continue IVF Hyperkalemia -Continue IVF Acute Metabolic Acidosis -Continue IVF Hypoalbuminemia -Advance nutrition as tolerated Anemia in chronic illness Microcytosis -Monitor H&H BPH with LUTS Bladder Outlet Obstruction Right Renal Pelvis Rupture Microscopic Hematuria -Continue Flomax -Continue Richardson -Followed by Dr. Parsons -Continue Abx Hospitalist, ER and Urology notes reviewed Thank you kindly for the consultation
[2024-07-30] MEDS: D5W 1,000 ML IV SCH (08:47)
--- NOTE | 2024-07-30 09:21 | P.PN ---
Date of Service: 07/30/24 Subjective: Had surgery yesterday Alert, at mental status baseline No acute events overnight Patient denies any pain currently ROS: 10 point ROS as noted above, otherwise negative Physical exam GEN: Alert, oriented x2 , NAD HEENT: Normal conjunctiva, sclera anicteric CV: Regular rate and rhythm, no edema Pulm: Nonlabored respirations on room air ABD: Soft, nontender, nondistended, lópez in place MSK: No joint tenderness Integumentary: No rashes Neuro: Normal speech, normal affect Vitals reviewed Assessment: 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 Bilateral hydronephrosis Urinary retention with likely overflow incontinence BPH with LUTS KAMARI with hyperkalemia Dementia Hypertension Hyperlipidemia Plan: 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 Bilateral hydronephrosis Urinary retention with likely overflow incontinence BPH with LUTS KAMARI with hyperkalemia Patient underwent the followin procedures 07/29 with urology: Cystoscopy Right retrograde pyelography Right 7 Singaporean by 26 cm JJ ureteral stent placement 18 Singaporean coud urethral López catheter placement/exchange Cystogram Demonstrated with significant acute kidney injury, mild hyperkalemia, hyperchloremia IV fluids changed to D5W, nephrology consulted Urology following as well Watch for postobstructive diuresis Additional urology recommendations below -Flomax 0.4 mg daily recommended to start postoperatively -Careful hospital management required with attention given to the potential and likely development of postobstructive diuresis. As a result, I would recommend the following: a) Maintenance IV fluids per routine b) replace urine output with D5 half-normal saline +/- KCl at half cc per cc of urine output measured every 4 hours c) once Is = Os, discontinue replacement IVFs and wean maintenance IVF depending on his ability to take adequate oral intake of fluid -Follow-up in about 2-3 weeks time for active voiding trial in the urology clinic via nursing visit, but will have a low threshold for reinsertion of the López catheter, given his inability to appropriately appreciate when a problem exists given his dementia. Therefore, if he is unable to void at least 65%, approximately two thirds of the volume instilled at active voiding trial, a catheter should be reinserted. Ciprofloxacin 500 mg p.o. may be provided at the time of voiding trial, presuming hospital urine culture returns no growth today. -Subsequent evaluation with me for cystoscopy and potentially urodynamics evaluation will be required and should be scheduled in the clinic -Obtain a PSA about 1 week prior to follow-up for cystoscopy Dementia Hypertension Hyperlipidemia Continue home medications when verified Hold meds appropriately for KAMARI DVT PPX: SCDs Code status: Full Discharge Plan: Home Time Spent Managing Pts Care (In Minutes): 35
[2024-07-30 13:29] LABS: Anion Gap 8.1 mEq/L (5.0-15.0); Potassium 5.1 mEq/L (3.5-5.1)
[2024-07-30] MEDS: CEFTRIAXONE 1,000 MG in NA CHLORIDE 0.9% 50 ML IVPB SCH (17:41)
[2024-07-30] MEDS: MORPHINE 2 MG/ML SYR IV PRN (18:09)
[2024-07-30] MEDS ORDERED: PIPER TAZO 3.375 GM in NA CHLORIDE 0.9% 100 ML IV SCH (21:00)
[2024-07-30] MEDS: TAMSULOSIN 0.4 MG SR CAP PO SCH (21:09)
[2024-07-31 05:28] LABS: Absolute Eosinophils 0.3 K/uL (0-0.5); Absolute Lymphocytes (CBC) 0.8 K/uL (0.7-4.9); Absolute Monocytes 0.8 K/uL (0.1-1.3); Absolute Neutrophil 6.2 K/uL (1.8-8.0); Basophils % 0.2 % (0-1.3); Eosinophils % 3.2 % (0-4.4); Hematocrit 33.1 % (39.6-49.0); Lymphocytes % 10.3 % (15.3-44.8); MCH 25.7 pg (27.0-35.0); MCHC 33.1 g/dL (32.0-36.0); MCV 77.4 fL (80-100); MPV 7.3 fL (7.6-11.3); Monocytes % 9.5 % (3.3-12.3); Neutrophils % 76.8 % (41.7-73.7); Nucleated Red Blood Cells % 0.1 % (0-0); Platelets 272 thou/uL (152-406); RBC Red Blood Cell Count 4.28 M/uL (4.33-5.43); Red Cell Distribution Width 19.9 % (12.1-15.2)
[2024-07-31 05:48] LABS: Anion Gap 5.6 mEq/L (5.0-15.0); Magnesium 2.1 mg/dL (1.6-2.4); Potassium 4.6 mEq/L (3.5-5.1)
[2024-07-31 06:06] LABS: Phosphorus 1.3 mg/dL (2.5-4.9)
[2024-07-31] MEDS: SODIUM PHOSPHATE 15 MM in NA CHLORIDE 0.9% 250 ML IV ONE (09:00)
--- NOTE | 2024-07-31 13:03 | P.PN ---
Date of Service: 07/31/24 Subjective: Awake, eating well, some confusion ambulating well with Physical therapy Phos 1.3, replace and recheck in the AM Daughter visited but left before discussing her fathers care. Attempted to call number listed in the chart but phone is not working. 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 Bilateral hydronephrosis Urinary retention with likely overflow incontinence BPH with LUTS KAMARI with hyperkalemia Dementia Hypertension Hyperlipidemia Hypophosphatemia Plan: 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 Bilateral hydronephrosis Urinary retention with likely overflow incontinence BPH with LUTS KAMARI with hyperkalemia Patient underwent the following procedures 07/29 with urology: Cystoscopy Right retrograde pyelography Right 7 Kyrgyz by 26 cm JJ ureteral stent placement 18 Kyrgyz coud urethral López catheter placement/exchange Cystogram Demonstrated with significant acute kidney injury, mild hyperkalemia, hyperchloremia IV fluids changed to D5W, nephrology consulted Urology following as well Watch for postobstructive diuresis Additional urology recommendations below -Flomax 0.4 mg daily recommended to start postoperatively -Careful hospital management required with attention given to the potential and likely development of postobstructive diuresis. As a result, I would recommend the following: a) Maintenance IV fluids per routine b) replace urine output with D5 half-normal saline +/- KCl at half cc per cc of urine output measured every 4 hours c) once Is = Os, discontinue replacement IVFs and wean maintenance IVF depending on his ability to take adequate oral intake of fluid -Follow-up in about 2-3 weeks time for active voiding trial in the urology clinic via nursing visit, but will have a low threshold for reinsertion of the López catheter, given his inability to appropriately appreciate when a problem exists given his dementia. Therefore, if he is unable to void at least 65%, approximately two thirds of the volume instilled at active voiding trial, a catheter should be reinserted. Ciprofloxacin 500 mg p.o. may be provided at the time of voiding trial, presuming hospital urine culture returns no growth today. -Subsequent evaluation with me for cystoscopy and potentially urodynamics evaluation will be required and should be scheduled in the clinic -Obtain a PSA about 1 week prior to follow-up for cystoscopy Hypophosphatemia -Phos 1.3 -Replace PRN -Monitor in AM labs Dementia Hypertension Hyperlipidemia Continue home medications when verified Hold meds appropriately for KAMARI DVT PPX: SCDs Code status: Full Discharge Plan: Home
[2024-07-31] MEDS: RIVASTIGMINE 4.6 MG/24 HR PATCH TD SCH (16:49)
[2024-07-31] MEDS: METOPROLOL TARTRATE 5 MG/5 ML INJ IV STA (16:49)
[2024-07-31] MEDS: METOPROLOL XL 25 MG TAB PO SCH (20:45)
--- NOTE | 2024-07-31 20:47 | P.PN ---
Date of Service: 07/31/24 Vital Signs Temp Pulse Resp BP Pulse Ox 98.2 F 100 H 14 144/72 H 96 07/31/24 16:00 07/31/24 16:00 07/31/24 16:00 07/31/24 18:23 07/31/24 16:00 Medications Acetaminophen (Acetaminophen 325 Mg Tablet) 650 mg PO Q6H PRN PRN Reason: Pain scale 2-4 (Mild) Aspirin (Aspirin Ec 81 Mg Tab) 81 mg PO DAILY [facility] Dextrose/Water (Dextrose In Water (1-Liter)) 1,000 mls @ 75 mls/hr IV .[id number] [facility] Last Admin: 07/31/24 08:59 Dose: 1,000 mls Ceftriaxone Sodium 1,000 mg/ (Sodium Chloride) 50 mls @ 100 mls/hr IVPB DAILY 6PM [facility]; Protocol Last Admin: 07/31/24 17:06 Dose: 50 mls Meloxicam (Meloxicam 7.5 Mg Tab) 15 mg PO DAILY [facility] Metoprolol Succinate (Metoprolol Xl 25 Mg Tab) 25 mg PO BID [facility] Morphine Sulfate (Morphine 2 Mg/Ml Syr) 2 mg IV Q4H PRN PRN Reason: Pain scale 8-10 (Severe) Last Admin: 07/30/24 22:53 Dose: 2 mg Ondansetron HCl (Ondansetron 4 Mg/2 Ml Vial) 4 mg IV Q6HP PRN PRN Reason: NAUSEA / VOMITING Rivastigmine (Rivastigmine 4.6 Mg/24 Hr Patch) 4.6 mg TD DAILY [facility] Last Admin: 07/31/24 16:49 Dose: 4.6 mg Rosuvastatin Calcium (Rosuvastatin 5 Mg Tab) 5 mg PO DAILY [facility] Tamsulosin HCl (Tamsulosin 0.4 Mg Sr Cap) 0.4 mg PO BEDTIME [facility] Last Admin: 07/30/24 21:09 Dose: 0.4 mg Assessment/ Plan: Nephrology No dyspnea No chest pain No acute events overnight Vitals, medications, blood work and imaging reviewed in the chart General: In no apparent distress, Cooperative, Confused HEENT: Atraumatic Neck: Supple Respiratory: Clear to auscultation bilaterally, Normal air movement Cardiovascular: No edema, Regular rate/rhythm Gastrointestinal: Soft and benign, Non-distended Musculoskeletal: No clubbing, No contractures Integumentary: No rashes, No cyanosis Neurological: Normal speech Urinary: Richardson catheter Laboratory Data (last 24 hrs) 07/29/24 13:30 WBC 13.50 H Hgb 13.9 Hct 44.0 Plt Count 313 Imagings Data: [id number] EXAMCystography CLINICAL HISTORY: Abdominal pain FINDINGS: 20 fluoroscopic spot images obtained. Fluoroscopy time 0.3 minutes. The right ureter was cannulated and contrast administered. A right ureteral stent was placed. Contrast was also administrated bladder via a Richardson catheter Extravasation of contrast in the region of the right ureteral pelvic junction is present. No bladder extravasation The procedure performed by Dr. Dixon [address] EXAMINATION: CT ABDOMEN AND PELVIS WITH CONTRAST CLINICAL INDICATION: Abdominal pain TECHNIQUE: CT abdomen and pelvis was performed, after the administration of 100 cc Isovue-300.. Sagittal and coronal reconstructions were obtained. One or more of the following dose reduction techniques were used: Automated exposure control, adjustment of the mA and kV according to patient size, and iterative reconstruction. Unless otherwise specified, incidental findings do not require dedicated imaging follow-up. [id number]. Oral contrast was not given which limits evaluation of bowel and appendix. COMPARISON: .July 14, 2024 FINDINGS: Extravasation of contrast from the right ureteral pelvic junction. The contrast and urine extend inferiorly and medially into the pelvis. Mild to moderate right hydronephrosis is present. Mild left hydronephrosis. Marked bladder distention Liver, spleen, pancreas and right adrenal gland unremarkable Small adenoma or myelolipoma. left adrenal gland Bilateral hip arthroplasties.. Small inguinal hernias. : IMPRESSION: Tear involving the right ureteral pelvic junction. [address] EXAMINATION: CT PELVIS WITHOUT CONTRAST CLINICAL INDICATION: Pelvic pain TECHNIQUE: CT pelvis was performed,. Unenhanced images obtained. Subsequently Cystografin was placed into the bladder via a Richardson catheter. Axial, sagittal and coronal reconstructions were obtained. One or more of the following dose reduction techniques were used: Automated exposure control, adjustment of the mA and/or kV according to patient size, and/or iterative reconstruction. Unless otherwise specified, incidental findings do not require dedicated imaging follow-up. COMPARISON: CT abdomen July 29, 2024 and April 2023 FINDINGS: A Richardson catheter has been placed into the bladder. The bladder has become decompressed since the prior exam. Cystografin was then placed into the bladder via a Richardson catheter. 3 mm collection of contrast extends into the wall of the bladder within the anterior superior aspect to the right of midline. Mucosal folds of the bladder appear normal. Prostatic enlargement. 14 area sclerosis left ilium unchanged from 2022 IMPRESSION: 3 mm collection of contrast extends into the wall of the bladder within the anterior superior aspect to the right of midline.. This may represent a small tear. However, it appears contained as there is no extravesical extravasation of contrast. Another consideration is that it represents a very small trabeculation. 1.4 cm area sclerosis within the left ilium is unchanged and presumably is benign. Slow growing neoplasm is considered less likely. Follow-up x-ray in one year recommended to reassess stability Conclusions/Impression: Stage III KAMARI in the setting of obstruction complicated by Meloxicam -No NSAIDs -Continue IVF -Continue Richardson Hypernatremia/ Dehydration -Improving with IVF Hyperkalemia -Improving with IVF Acute Metabolic Acidosis -Improving with IVF Hypophosphatemia -Replete as ordered Hypoalbuminemia -Advance nutrition as tolerated Anemia in chronic illness Microcytosis -Monitor H&H BPH with LUTS Bladder Outlet Obstruction Right Renal Pelvis Rupture Microscopic Hematuria -Continue Flomax -Continue Richardson -Followed by Dr. Parsons -Continue Abx Hospitalist note reviewed Case discussed with Dr. Jamison
[2024-08-01] MEDS: ONDANSETRON 4 MG/2 ML VIAL IV PRN (02:55)
[2024-08-01 08:00] LABS: Absolute Eosinophils 0.3 K/uL (0-0.5); Absolute Lymphocytes (CBC) 0.9 K/uL (0.7-4.9); Absolute Monocytes 0.6 K/uL (0.1-1.3); Absolute Neutrophil 6.2 K/uL (1.8-8.0); Basophils % 0.4 % (0-1.3); Eosinophils % 4.1 % (0-4.4); Hematocrit 34.4 % (39.6-49.0); Hemoglobin 11.2 g/dL (13.6-17.9); Lymphocytes % 11.4 % (15.3-44.8); MCH 25.7 pg (27.0-35.0); MCHC 32.7 g/dL (32.0-36.0); MCV 78.6 fL (80-100); MPV 7.2 fL (7.6-11.3); Monocytes % 7.2 % (3.3-12.3); Neutrophils % 76.9 % (41.7-73.7); Platelets 260 thou/uL (152-406); RBC Red Blood Cell Count 4.37 M/uL (4.33-5.43); Red Cell Distribution Width 19.7 % (12.1-15.2)
[2024-08-01] MEDS: ASPIRIN EC 81 MG TAB PO SCH (08:11)
[2024-08-01] MEDS: ROSUVASTATIN 5 MG TAB PO SCH (08:11)
[2024-08-01 08:13] LABS: Anion Gap 5.7 mEq/L (5.0-15.0); Magnesium 1.8 mg/dL (1.6-2.4); Potassium 4.7 mEq/L (3.5-5.1)
[2024-08-01 08:19] LABS: Phosphorus 1.2 mg/dL (2.5-4.9)
[2024-08-01] MEDS ORDERED: HOME MED 1 EA UNK (Meloxicam [Meloxicam] 15 MG Tablet) PO SCH (09:00)
[2024-08-01] MEDS ORDERED: MELOXICAM 7.5 MG TAB PO SCH (09:00)
[2024-08-01] MEDS: SODIUM PHOSPHATE 30 MM in NA CHLORIDE 0.9% 500 ML IV ONE (09:24)
--- NOTE | 2024-08-01 10:46 | P.PN ---
Date of Service: 08/01/24 Subjective: No complaints, some agitation overnight, remains confused ambulating well with Physical therapy Phos 1.2, replace and recheck in the AM- plan to discharge when Phos is at appropriate level Family reports decreased PO intake prior to admission, Daughter was impressed with how much he has improved and eating now. requesting training on lópez catheter care, Shlomo RN educated 08/01 ROS: 10 point ROS as noted above, otherwise negative Physical exam GEN: Awake, Alert, and oriented x1, NAD, confused HEENT: Normal conjunctiva, sclera anicteric CV: Regular rate and rhythm, S1 S2 present, no edema Pulm: Nonlabored respirations, Clear BBS, on room air ABD: Soft and benign on palpation, ND/NT, bowel sounds activefoley in place MSK: No joint tenderness Integumentary: No rashes Neuro: Normal speech, normal affect Vitals reviewed Assessment: 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 Bilateral hydronephrosis Urinary retention with likely overflow incontinence BPH with LUTS KAMARI with hyperkalemia Dementia Hypertension Hyperlipidemia Hypophosphatemia Plan: 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 Bilateral hydronephrosis Urinary retention with likely overflow incontinence BPH with LUTS KAMARI with hyperkalemia Patient underwent the following procedures 07/29 with urology: Cystoscopy Right retrograde pyelography Right 7 Vietnamese by 26 cm JJ ureteral stent placement 18 Vietnamese coud urethral López catheter placement/exchange Cystogram Demonstrated with significant acute kidney injury, mild hyperkalemia, hyperchloremia IV fluids changed to D5W, nephrology consulted Urology following as well Watch for postobstructive diuresis Additional urology recommendations below -Flomax 0.4 mg daily recommended to start postoperatively -Careful hospital management required with attention given to the potential and likely development of postobstructive diuresis. As a result, I would recommend the following: a) Maintenance IV fluids per routine b) replace urine output with D5 half-normal saline +/- KCl at half cc per cc of urine output measured every 4 hours c) once Is = Os, discontinue replacement IVFs and wean maintenance IVF depending on his ability to take adequate oral intake of fluid -Follow-up in about 2-3 weeks time for active voiding trial in the urology clinic via nursing visit, but will have a low threshold for reinsertion of the López catheter, given his inability to appropriately appreciate when a problem exists given his dementia. Therefore, if he is unable to void at least 65%, approximately two thirds of the volume instilled at active voiding trial, a catheter should be reinserted. Ciprofloxacin 500 mg p.o. may be provided at the time of voiding trial, presuming hospital urine culture returns no growth today. -Subsequent evaluation with me for cystoscopy and potentially urodynamics evaluation will be required and should be scheduled in the clinic -Obtain a PSA about 1 week prior to follow-up for cystoscopy Hypophosphatemia -Phos 1.2 -Replace PRN -Monitor in AM labs Dementia Hypertension Hyperlipidemia Continue home medications when verified Hold meds appropriately for KAMARI DVT PPX: SCDs Code status: Full Discharge Plan: Home
--- NOTE | 2024-08-01 11:07 | P.PN ---
Nephrology Richardson remains in place, draining well, no large post obstructive diuresis, remains on D5W, hypernatremia resolved. Denies any bladder spasms, renal colic, no gross hematuria or clots Vitals, medications, blood work and imaging reviewed in the chart General: In no apparent distress, Cooperative, Confused HEENT: Atraumatic, not needing O2 Neck: Supple Respiratory: Clear to auscultation bilaterally, Normal air movement Cardiovascular: No edema, Regular rate/rhythm mostly Gastrointestinal: Soft and benign, Non-distended Musculoskeletal: No contractures Integumentary: No rashes Neurological: Awake, conversive, pleasantly confused/underlying dementia Urinary: Richardson catheter Laboratory Data (last 24 hrs) Reviewed in the EMR Imagings Data: [id number] EXAMINATION: CT ABDOMEN AND PELVIS WITH CONTRAST CLINICAL INDICATION: Abdominal pain TECHNIQUE: CT abdomen and pelvis was performed, after the administration of 100 cc Isovue-300.. Sagittal and coronal reconstructions were obtained. One or more of the following dose reduction techniques were used: Automated exposure control, adjustment of the mA and kV according to patient size, and iterative reconstruction. Unless otherwise specified, incidental findings do not require dedicated imaging follow-up. [id number]. Oral contrast was not given which limits evaluation of bowel and appendix. COMPARISON: .July 14, 2024 FINDINGS: Extravasation of contrast from the right ureteral pelvic junction. The contrast and urine extend inferiorly and medially into the pelvis. Mild to moderate right hydronephrosis is present. Mild left hydronephrosis. Marked bladder distention Liver, spleen, pancreas and right adrenal gland unremarkable Small adenoma or myelolipoma. left adrenal gland Bilateral hip arthroplasties.. Small inguinal hernias. : IMPRESSION: Tear involving the right ureteral pelvic junction. [id number] EXAMINATION: CT PELVIS WITHOUT CONTRAST CLINICAL INDICATION: Pelvic pain TECHNIQUE: CT pelvis was performed,. Unenhanced images obtained. Subsequently Cystografin was placed into the bladder via a Richardson catheter. Axial, sagittal and coronal reconstructions were obtained. One or more of the following dose reduction techniques were used: Automated exposure control, adjustment of the mA and/or kV according to patient size, and/or iterative reconstruction. Unless otherwise specified, incidental findings do not require dedicated imaging follow-up. COMPARISON: CT abdomen July 29, 2024 and April 2023 FINDINGS: A Richardson catheter has been placed into the bladder. The bladder has become decompressed since the prior exam. Cystografin was then placed into the bladder via a Richardson catheter. 3 mm collection of contrast extends into the wall of the bladder within the anterior superior aspect to the right of midline. Mucosal folds of the bladder appear normal. Prostatic enlargement. 14 area sclerosis left ilium unchanged from 2022 IMPRESSION: 3 mm collection of contrast extends into the wall of the bladder within the anterior superior aspect to the right of midline.. This may represent a small tear. However, it appears contained as there is no extravesical extravasation of contrast. Another consideration is that it represents a very small trabeculation. 1.4 cm area sclerosis within the left ilium is unchanged and presumably is benign. Slow growing neoplasm is considered less likely. Follow-up x-ray in one year recommended to reassess stability Conclusions/Impression: Stage III ARF 2nd to obstructive uropathy, bladder neck obstruction, b/l hydro -Resolved, cont bladder decompression, Cr level normalized. Hypernatremia -Resolved, d/c D5W IVF, no current post obstructive diuresis Hypophosphatemia -Receiving IV Na phos this AM BPH Bladder Outlet Obstruction Right Renal Pelvis Rupture -OP report reviewed -Continue Flomax -Continue Richardson -OP f/u with Dr. Parsons
[2024-08-02 06:08] LABS: Absolute Eosinophils 0.3 K/uL (0-0.5); Absolute Lymphocytes (CBC) 1.1 K/uL (0.7-4.9); Absolute Monocytes 0.5 K/uL (0.1-1.3); Absolute Neutrophil 8.2 K/uL (1.8-8.0); Basophils % 0.4 % (0-1.3); Eosinophils % 2.8 % (0-4.4); Hematocrit 35.4 % (39.6-49.0); Hemoglobin 11.7 g/dL (13.6-17.9); Lymphocytes % 10.6 % (15.3-44.8); MCH 25.8 pg (27.0-35.0); MCV 78.1 fL (80-100); MPV 7.2 fL (7.6-11.3); Monocytes % 5.3 % (3.3-12.3); Neutrophils % 80.9 % (41.7-73.7); Nucleated Red Blood Cells % 0.1 % (0-0); Platelets 270 thou/uL (152-406); RBC Red Blood Cell Count 4.53 M/uL (4.33-5.43); Red Cell Distribution Width 19.3 % (12.1-15.2)
[2024-08-02 06:29] LABS: Anion Gap 8.5 mEq/L (5.0-15.0); Magnesium 1.6 mg/dL (1.6-2.4); Phosphorus 1.7 mg/dL (2.5-4.9); Potassium 4.5 mEq/L (3.5-5.1)
[2024-08-02] MEDS: POTASS/SODIUM PHOSPHATE 1 PKT POWD.PACK PO SCH (10:08)
--- NOTE | 2024-08-02 13:40 | P.PN ---
Date of Service: 08/02/24 Subjective: Conversing well, remains confused but cooperative Phos improved but still to low for discharge ROS: 10 point ROS as noted above, otherwise negative Physical exam GEN: AAO x1, NAD, confused HEENT: Normal conjunctiva, sclera anicteric CV: RRR, S1 S2 present, no edema Pulm: Nonlabored respirations, symmetrical chest wall movement, on room air ABD: Soft and benign on palpation, ND/NT, bowel sounds active, lópez in place MSK: No joint tenderness Integumentary: No rashes Neuro: Normal speech, normal affect Vitals reviewed Assessment: 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 Bilateral hydronephrosis Urinary retention with likely overflow incontinence BPH with LUTS KAMARI with hyperkalemia Dementia Hypertension Hyperlipidemia Hypophosphatemia Plan: 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 Bilateral hydronephrosis Urinary retention with likely overflow incontinence BPH with LUTS KAMARI with hyperkalemia Patient underwent the following procedures 07/29 with urology: Cystoscopy Right retrograde pyelography Right 7 [place]ri[place] by 26 cm JJ ureteral stent placement 18 Syri[place] coud urethral López catheter placement/exchange Cystogram Demonstrated with significant acute kidney injury, mild hyperkalemia, hyperchloremia IV fluids changed to D5W, nephrology consulted Urology following as well Watch for postobstructive diuresis Additional urology recommendations below -Flomax 0.4 mg daily recommended to start postoperatively -Careful hospital management required with attention given to the potential and likely development of postobstructive diuresis. As a result, I would recommend the following: a) Maintenance IV fluids per routine b) replace urine output with D5 half-normal saline +/- KCl at half cc per cc of urine output measured every 4 hours c) once Is = Os, discontinue replacement IVFs and wean maintenance IVF depending on his ability to take adequate oral intake of fluid -Follow-up in about 2-3 weeks time for active voiding trial in the urology clinic via nursing visit, but will have a low threshold for reinsertion of the López catheter, given his inability to appropriately appreciate when a problem exists given his dementia. Therefore, if he is unable to void at least 65%, approximately two thirds of the volume instilled at active voiding trial, a catheter should be reinserted. Ciprofloxacin 500 mg p.o. may be provided at the time of voiding trial, p resuming hospital urine culture returns no growth today. -Subsequent evaluation with me for cystoscopy and potentially urodynamics evaluation will be required and should be scheduled in the clinic -Obtain a PSA about 1 week prior to follow-up for cystoscopy Hypophosphatemia -Phos 1.7 -Replace PRN -Monitor in AM labs Dementia Hypertension Hyperlipidemia Continue home medications when verified Hold meds appropriately for KAMARI DVT PPX: SCDs Code status: Full Discharge Plan: Home
[2024-08-02] MEDS: ACETAMINOPHEN 325 MG TABLET PO PRN (20:23)
[2024-08-03 06:45] LABS: Anion Gap 7.3 mEq/L (5.0-15.0); Magnesium 1.9 mg/dL (1.6-2.4); Phosphorus 1.7 mg/dL (2.5-4.9); Potassium 4.3 mEq/L (3.5-5.1)
[2024-08-03] MEDS: SODIUM PHOSPHATE 30 MM in NA CHLORIDE 0.9% 500 ML IV ONE (08:43)
--- NOTE | 2024-08-03 15:39 | P.PN ---
Date of Service: 08/03/24 Subjective: Sleeping on morning rounds Rounded this afternoon, family at the bedside requesting HH for López catheter care Phosphate remains low, continue to replace and encourage protein supplement ROS: 10 point ROS as noted above, otherwise negative Physical exam GEN: Awake and oriented x1, NAD, confused HEENT: Normal conjunctiva, sclera anicteric CV: Regular rate and rhythm, S1 S2 present, no edema Pulm: Nonlabored respirations, Clear BBS, on room air ABD: Soft and benign on palpation, ND/NT, bowel sounds active, lópez in place MSK: No joint tenderness Integumentary: No rashes Neuro: Normal speech, normal affect Vitals reviewed Assessment: 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 Bilateral hydronephrosis Urinary retention with likely overflow incontinence BPH with LUTS KAMARI with hyperkalemia Dementia Hypertension Hyperlipidemia Hypophosphatemia Plan: 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 Bilateral hydronephrosis Urinary retention with likely overflow incontinence BPH with LUTS KAMARI with hyperkalemia Patient underwent the following procedures 07/29 with urology: Cystoscopy Right retrograde pyelography Right 7 Stat[place] by 26 cm JJ ureteral stent placement 18 Stateless coud urethral López catheter placement/exchange Cystogram Demonstrated with significant acute kidney injury, mild hyperkalemia, hyperchloremia IV fluids changed to D5W, nephrology consulted Urology following as well Watch for postobstructive diuresis Additional urology recommendations below -Flomax 0.4 mg daily recommended to start postoperatively -Careful hospital management required with attention given to the potential and likely development of postobstructive diuresis. As a result, I would recommend the following: a) Maintenance IV fluids per routine b) replace urine output with D5 half-normal saline +/- KCl at half cc per cc of urine output measured every 4 hours c) once Is = Os, discontinue replacement IVFs and wean maintenance IVF depending on his ability to take adequate oral intake of fluid -Follow-up in about 2-3 weeks time for active voiding trial in the urology clinic via nursing visit, but will have a low threshold for reinsertion of the López catheter, given his inability to appropriately appreciate when a problem exists given his dementia. Therefore, if he is unable to void at least 65%, approximately two thirds of the volume instilled at active voiding trial, a catheter should be reinserted. Ciprofloxacin 500 mg p.o. may be provided at the time of voiding trial, presuming hospital urine culture returns no growth today. -Subsequent evaluation with me for cystoscopy and potentially urodynamics evaluation will be required and should be scheduled in the clinic -Obtain a PSA about 1 week prior to follow-up for cystoscopy Hypophosphatemia -Phos 1.7 -Replace PRN -Monitor in AM labs -Encouraged protein drink supplement Dementia Hypertension Hyperlipidemia Continue home medications when verified Hold meds appropriately for KAMARI DVT PPX: SCDs Code status: Full Discharge Plan: Home
[2024-08-04 07:53] LABS: Anion Gap 7.9 mEq/L (5.0-15.0); Phosphorus 1.8 mg/dL (2.5-4.9); Potassium 3.9 mEq/L (3.5-5.1)
[2024-08-04] MEDS ORDERED: POTASSIUM PHOS IN 0.9 % NACL 15 MMOL/250 ML BAG IV SCH (08:30)
--- NOTE | 2024-08-04 10:32 | P.PN ---
Date of Service: 08/04/24 Subjective: Pulled PICC line out Phosphorus slowly improving, will replace PO López in place with good urine output 650 ml ROS: 10 point ROS as noted above, otherwise negative Physical exam GEN: oriented x1, NAD, pleasantly confused HEENT: Normal conjunctiva, sclera anicteric CV: Regular rate and rhythm, S1 S2 present, no edema Pulm: Nonlabored respirations, Clear BBS, on room air ABD: Soft and benign on palpation, ND/NT, bowel sounds active, lópez in place MSK: No joint tenderness Integumentary: No rashes Neuro: Normal speech, normal affect Vitals reviewed Assessment: 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 Bilateral hydronephrosis Urinary retention with likely overflow incontinence BPH with LUTS KAMARI with hyperkalemia Dementia Hypertension Hyperlipidemia Hypophosphatemia Plan: 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 Bilateral hydronephrosis Urinary retention with likely overflow incontinence BPH with LUTS KAMARI with hyperkalemia Patient underwent the following procedures 07/29 with urology: Cystoscopy Right retrograde pyelography Right 7 Czech by 26 cm JJ ureteral stent placement 18 Czech coud urethral López catheter placement/exchange Cystogram Demonstrated with significant acute kidney injury, mild hyperkalemia, hyperchloremia IV fluids changed to D5W, nephrology consulted Urology following as well Watch for postobstructive diuresis Additional urology recommendations below -Flomax 0.4 mg daily recommended to start postoperatively -Careful hospital management required with attention given to the potential and likely development of postobstructive diuresis. As a result, I would recommend the following: a) Maintenance IV fluids per routine b) replace urine output with D5 half-normal saline +/- KCl at half cc per cc of urine output measured every 4 hours c) once Is = Os, discontinue replacement IVFs and wean maintenance IVF depending on his ability to take adequate oral intake of fluid -Follow-up in about 2-3 weeks time for active voiding trial in the urology clinic via nursing visit, but will have a low threshold for reinsertion of the López catheter, given his inability to appropriately appreciate when a problem exists given his dementia. Therefore, if he is unable to void at least 65%, approximately two thirds of the volume instilled at active voiding trial, a catheter should be reinserted. Ciprofloxacin 500 mg p.o. may be provided at the time of voiding trial, presuming hospital urine culture returns no growth today. -Subsequent evaluation with me for cystoscopy and potentially urodynamics evaluation will be required and should be scheduled in the clinic -Obtain a PSA about 1 week prior to follow-up for cystoscopy Hypophosphatemia -Phos 1.8 -Replace PRN -Monitor in AM labs -Encouraged protein drink supplement Dementia Hypertension Hyperlipidemia Continue home medications when verified KAMARI resolved DVT PPX: SCDs Code status: Full Discharge Plan: Home
--- NOTE | 2024-08-04 14:04 | P.PN ---
Nephrology López remains in place, draining well, no large post obstructive diuresis/ Denies any bladder spasms, renal colic, no gross hematuria or clots Family qu regarding lópez care addressed Vitals, medications, blood work and imaging reviewed in the chart General: In no apparent distress, Cooperative, Confused HEENT: Atraumatic, not needing O2 Neck: Supple Respiratory: Clear to auscultation bilaterally, Normal air movement Cardiovascular: No edema, Regular rate/rhythm mostly Gastrointestinal: Soft and benign, Non-distended Musculoskeletal: No contractures Integumentary: No rashes Neurological: Awake, conversive, pleasantly confused/underlying dementia Urinary: López catheter Laboratory Data (last 24 hrs) Reviewed in the EMR Imagings Data: [id number] EXAMINATION: CT ABDOMEN AND PELVIS WITH CONTRAST CLINICAL INDICATION: Abdominal pain TECHNIQUE: CT abdomen and pelvis was performed, after the administration of 100 cc [id number].. Sagittal and coronal reconstructions were obtained. One or more of the following dose reduction techniques were used: Automated exposure control, adjustment of the mA and kV according to patient size, and iterative reconstruction. Unless otherwise specified, incidental findings do not require dedicated imaging follow-up. [id number]. Oral contrast was not given which limits evaluation of bowel and appendix. COMPARISON: .July 14, 2024 FINDINGS: Extravasation of contrast from the right ureteral pelvic junction. The contrast and urine extend inferiorly and medially into the pelvis. Mild to moderate right hydronephrosis is present. Mild left hydronephrosis. Marked bladder distention Liver, spleen, pancreas and right adrenal gland unremarkable Small adenoma or myelolipoma. left adrenal gland Bilateral hip arthroplasties.. Small inguinal hernias. : IMPRESSION: Tear involving the right ureteral pelvic junction. [id number] EXAMINATION: CT PELVIS WITHOUT CONTRAST CLINICAL INDICATION: Pelvic pain TECHNIQUE: CT pelvis was performed,. Unenhanced images obtained. Subsequently Cystografin was placed into the bladder via a López catheter. Axial, sagittal and coronal reconstructions were obtained. One or more of the following dose reduction techniques were used: Automated exposure control, adjustment of the mA and/or kV according to patient size, and/or iterative reconstruction. Unless otherwise specified, incidental findings do not require dedicated imaging follow-up. COMPARISON: CT abdomen July 29, 2024 and April 2023 FINDINGS: A López catheter has been placed into the bladder. The bladder has become decompressed since the prior exam. Cystografin was then placed into the bladder via a López catheter. 3 mm collection of contrast extends into the wall of the bladder within the anterior superior aspect to the right of midline. Mucosal folds of the bladder appear normal. Prostatic enlargement. 14 area sclerosis left ilium unchanged from 2022 IMPRESSION: 3 mm collection of contrast extends into the wall of the bladder within the anterior superior aspect to the right of midline.. This may represent a small tear. However, it appears contained as there is no extravesical extravasation of contrast. Another consideration is that it represents a very small trabeculation. 1.4 cm area sclerosis within the left ilium is unchanged and presumably is benign. Slow growing neoplasm is considered less likely. Follow-up x-ray in one year recommended to reassess stability Conclusions/Impression: Stage III ARF 2nd to obstructive uropathy, bladder neck obstruction, b/l hydro -Resolved, cont bladder decompression for two week period per Urology instructions, Cr level normalized. Hypernatremia -Resolved, d/c'ed a few days back D5W IVF, no current post obstructive diuresis Hypophosphatemia -Cont Neutra phos supplements for a week post discharge BPH Bladder Outlet Obstruction Right Renal Pelvis Rupture -OP report reviewed -Continue Flomax -Continue López -OP f/u with Dr. Parsons
[2024-08-04] MEDS: AMOX/K CLAV 875 MG TAB PO SCH (14:17)
[2024-08-04] MEDS: POTASS/SODIUM PHOSPHATE 1 PKT POWD.PACK PO SCH (21:01)
[2024-08-05 09:04] LABS: Phosphorus 1.9 mg/dL (2.5-4.9)
--- NOTE | 2024-08-05 11:24 | P.DS ---
Admission Date: 07/29/24 Discharge Date: 08/05/24 Disposition: TRANSFER TO SNF Discharge Condition: GOOD Reason for Admission: Ureteral tear, urinary retention Brief History of Present Illness: Diagnosis 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 Bilateral hydronephrosis Urinary retention with likely overflow incontinence BPH with LUTS KAMARI with hyperkalemia Dementia Hypertension Hyperlipidemia Hypophosphatemia HPI 07/29/24 Elias Molina is a 83-year-old male with history of dementia, hypertension, hyperlipidemia presented to the emergency department with chief complaint of abdominal pain for 1 to 2 weeks. Patient has history of dementia and is unable to really explain his symptoms much, lives at home with his and has home health which started today. Patient was evaluated in the emergency department his labs were significant for a white blood cell count 13.5 hemoglobin 13.9 hematocrit 44 platelets 313, chemistry is pending. CT abdomen pelvis with IV contrast was performed which showed a tear involving the right ureteral pelvic junction. López catheter was also placed for urinary retention and patient put out around 2 L of urine so far. Urology was urgently consulted while patient was in the ED by ED staff and plans to take the patient to the OR urgently. Patient was admitted to the hospital service for further management. Hospital Course: Elias Molina is a pleasant 83 year old male with a past medical history significant for dementia, hypertension, hyperlipidemia who was admitted to the [facility] on 07/29/24 for Right ureteral tear. Elias tolerated surgery with Dr. Parsons on 07/29, creatinine cleared two days later. A lópez catheter was placed with good urine output, urine is clear of blood and sediment. Phosphorus level at 1.3 requiring several days of replacement both IV and PO. Dr. Johnson was consulted and recommended continued phosphorus replacement for one week as well as good oral intake of milk, then follow up outpatient. At discharge he will need a repeat phosphorus level drawn in one week to determine adequate replacement. López catheter will remain in place until the follow up visit with Dr. Parsons in 2-3 weeks. On 08/05/24, Elias was seen on morning rounds and deemed medically stable for discharge. Elias was discharged with instructions to schedule follow-up carlos ointments with Dr. Johnson, Dr. Parsons, and PCP. Elias was provided prescriptions for Neutra-phos, augmentin, tamsulosin. Physical exam GEN: oriented x1, No acute distress, pleasantly confused HEENT: Normal conjunctiva, sclera anicteric CV: RRR, S1 S2 present, no edema Pulm: Nonlabored respirations, Clear BBS, on room air ABD: Soft on palpation, ND/NT, bowel sounds active, lópez in place MSK: No joint tenderness Integumentary: No rashes Neuro: Normal speech, normal affect Vital Signs/Physical Exam: Temp Pulse Resp BP Pulse Ox 97.8 F 64 15 128/82 99 08/05/24 08:00 08/05/24 08:00 08/05/24 08:00 08/05/24 08:00 08/05/24 08:00 Laboratory Data at Discharge: WBC 10.10 thou/uL (4.3-10.9) 08/02/24 06:00 Hgb 11.7 g/dL (13.6-17.9) L 08/02/24 06:00 Hct 35.4 % (39.6-49.0) L 08/02/24 06:00 Plt Count 270 thou/uL (152-406) 08/02/24 06:00 Sodium 138 mEq/L (136-145) 08/05/24 08:40 Potassium 4.0 mEq/L (3.5-5.1) 08/05/24 08:40 BUN 14 mg/dL (7-18) 08/05/24 08:40 Creatinine 0.69 mg/dL (0.70-1.30) L 08/05/24 08:40 Glucose 106 mg/dL (74-106) 08/05/24 08:40 Phosphorus 1.9 mg/dL (2.5-4.9) L 08/05/24 08:40 Magnesium 2.0 mg/dL (1.6-2.4) 08/05/24 08:40 Total Bilirubin 0.4 mg/dL (0.2-1.0) 07/29/24 18:35 AST 29 U/L (15-37) 07/29/24 18:35 ALT 27 U/L (16-61) 07/29/24 18:35 Alkaline Phosphatase 84 U/L (45-117) 07/29/24 18:35 Lipase 56 U/L (13-75) 07/29/24 18:35 Home Medications: Metoprolol Succinate 25 mg PO BID 07/01/24 Rivastigmine Patch [Exelon 4.6 mg Patch*] 1 each TD DAILY 07/01/24 Aspirin [Aspirin EC 81 MG] 81 mg PO DAILY 07/29/24 Meloxicam 15 mg PO DAILY 07/29/24 Rosuvastatin Calcium 5 mg PO DAILY 07/29/24 Amox/Clavulanate [Augmentin 875-125 Tab*] 875 mg PO BID 5 Days #10 tab 08/05/24 Naph,Mb-Db/K pH,Mbdb [Neutra-Phos Packet] 1 each PO DAILY 7 Days #7 packet 08/05/24 Tamsulosin [Flomax*] 0.4 mg PO BEDTIME 30 Days #30 cap 08/05/24 New Medications: Amox/Clavulanate [Augmentin 875-125 Tab*] 875 mg PO BID 5 Days #10 tab Tamsulosin [Flomax*] 0.4 mg PO BEDTIME 30 Days #30 cap Naph,Mb-Db/K pH,Mbdb [Neutra-Phos Packet] 1 each PO DAILY 7 Days #7 packet Physician Discharge Instructions: 1. Please call and schedule a follow-up appointment with your PCP in 3-5 days - Please follow-up with your PCP for medication refills/adjustments 2. Please call and schedule a follow-up appointment with Dr. Johnson in one week -Last phosphorus 1.9 while taking Neutra-phos 2 packs twice daily -Encourage PO intake to include items listed below 3. Please call and schedule a follow up appointment with Dr. Parsons in 2-3 weeks -voiding trial at the clinic -Ultrasound of prostate -PSA level will be drawn 3. Continue diet to including milk, red meat, chicken, catfish legumes, pota toes, asparagus, nuts (if not a choking hazard)- Will follow up with Dr. Johnson for further instructions, recommend a re-draw of phosphorus in three days 4. activity restrictions call precautions 5. Return to the ED if symptoms worsen López catheter care daily, please measure urine output for Dr. Parsons follow up, López will remain until Dr. Parsons appointment in 2-[address] Parsons will send instructions for further care. Tamsulosin at bedtime New medications Augmentin 875 mg twice daily x 5 days tamsulosin 0.4 mg at bedtime x 30 days Neutra-phos 1 packet daily x 7 days Diet: Regular Activity: Fall precautions Followup: Elie Johnson [ACTIVE - CAN ADMIT] - Zack Parsons [ACTIVE - CAN ADMIT] - 1-2 Weeks ISA HICKS NP [Primary Care Provider] - 1-2 Weeks
[2024-08-05 14:41] VITALS: TEMP 97.6
[2024-08-05 16:57] VITALS: BP 142/76
== END 2024-08-05 19:43 | DRG 660 ==
LOC: ER 13:02 → ERHOLD 16:12 → 2ND 17:09
PROVIDERS: ADMIT Hospitalist; ATTEND Internal Medicine
PROC: BT1D1ZZ Fluoroscopy of Right Kidney, Ureter and Bladder using Low Osmolar Contrast (ICD-10-PCS; 2024-07-29)
PROC: 0T9B70Z Drainage of Bladder with Drainage Device, Via Natural or Artificial Opening (ICD-10-PCS; 2024-07-29)
PROC: 0T768DZ Dilation of Right Ureter with Intraluminal Device, Via Natural or Artificial Opening Endoscopic (ICD-10-PCS; principal; 2024-07-29 16:30)
DX: S37.13XA Laceration of ureter, initial encounter (principal); E87.0 Hyperosmolality and hypernatremia; N13.30 Unspecified hydronephrosis; N13.8 Other obstructive and reflux uropathy; E87.21 Acute metabolic acidosis; N17.9 Acute kidney failure, unspecified; E87.5 Hyperkalemia; E86.0 Dehydration; E78.00 Pure hypercholesterolemia, unspecified; I10 Essential (primary) hypertension; E83.39 Other disorders of phosphorus metabolism; E88.09 Other disorders of plasma-protein metabolism, not elsewhere classified; D63.8 Anemia in other chronic diseases classified elsewhere; F03.90 Unspecified dementia, unspecified severity, without behavioral disturbance, psychotic disturbance, mood disturbance, and anxiety; N40.1 Benign prostatic hyperplasia with lower urinary tract symptoms; N39.498 Other specified urinary incontinence; R33.8 Other retention of urine; R33.9 Retention of urine, unspecified; R31.29 Other microscopic hematuria; Z96.641 Presence of right artificial hip joint; Z79.899 Other long term (current) drug therapy; Z87.891 Personal history of nicotine dependence
CPT/HCPCS: 36415; 51600; 51702; 72192; 74177; 74430; 80048; 80053; 81001; 83690; 83735; 84100; 85025; 96360; 96361; 97116; 97161; 97530; 99285; J0696; J2270; J2405; J2543; J2704; J7030; J7040; J7050; J7120; Q9967

== ENCOUNTER 2024-09-03 01:45 | Emergency (ER) | payer OTHER ==
[2024-09-03] MEDS ORDERED: ZIPRASIDONE MESYLA 20 MG/VIAL IM ONE (01:51)
[2024-09-03] MEDS ORDERED: WATER FOR INJ,STERILE 10 ML ONE (01:51)
[2024-09-03] MEDS ORDERED: ONDANSETRON 4 MG/2 ML VIAL ONE (02:21)
[2024-09-03] MEDS ORDERED: NA CHLORIDE 0.9% 1,000 ML ONE ×2 (02:22→05:47)
[2024-09-03] MEDS ORDERED: MORPHINE 2 MG/ML SYR ONE (02:22)
[2024-09-03] MEDS ORDERED: Nicardipine/NS 0 MG/0 ML KIT IV ONE (03:04)
[2024-09-03 03:05] LABS: Hematocrit 38.8 % (39.6-49.0); MCH 27.7 pg (27.0-35.0); MCHC 33.6 g/dL (32.0-36.0); MCV 82.6 fL (80-100); MPV 7.5 fL (7.6-11.3); Platelets 210 thou/uL (152-406)
[2024-09-03] MEDS ORDERED: dilTIAZem HCL 25 MG/5 ML VIAL IV ONE ×2 (03:05→03:07)
[2024-09-03] MEDS ORDERED: D5W 100 ML IV ONE (03:08)
[2024-09-03 03:16] LABS: Albumin 3.1 g/dL (3.4-5.0); Albumin/Globulin Ratio 0.9 (1.1-1.8); Anion Gap 15.1 mEq/L (5.0-15.0); Bilirubin Total 1.4 mg/dL (0.2-1.0); Globulin 3.6 g/dL (2.3-3.5); Potassium 4.1 mEq/L (3.5-5.1); Protein, Total 6.7 g/dL (6.4-8.2)
[2024-09-03 03:31] LABS: Troponin High Sensitivity 19.2 pg/mL (<58.9)
[2024-09-03 03:32] LABS: Specific Gravity 1.008 (1.005-1.030); Sqamous Epithelial None Seen /HPF (None Seen); Urine Bacteria <20 /HPF (<20); Urine Bilirubin NEGATIVE (Negative); Urine Blood 3+ (OVER) (Negative); Urine Clarity Extremely Turbid (Clear); Urine Color Red (Yellow); Urine Culture Reflex Order REFLEXED; Urine Glucose NEGATIVE (Negative); Urine Ketones NEGATIVE (Negative); Urine Microscopic Reflex YN ORDER UMIC; Urine Nitrite NEGATIVE (Negative); Urine Protein 2+ (Negative); Urine RBC >50 /HPF (None Seen); Urine Urobilinogen Normal (Normal); Urine WBC >50 /HPF (<5); Urine WBC Clump Many /HPF (None Seen)
[2024-09-03 03:37] LABS: Protime INR 3.28
[2024-09-03 03:50] LABS: Band Neutrophils 26 % (0-1); Differential Total Cells Count 100; Eosinophils 5 % (0-3); Lymphocytes 11 % (15-42); Monocytes 1 % (0-10); Nucleated Red Blood Cells 5 /100WBC; Reactive Lymphocytes 2 %; Segmented Neutrophils 55 % (40-80)
[2024-09-03 03:51] LABS: Anisocytosis 1+; Blood Morphology Comment NOTED (NOT SEEN); Platelet Estimate ADEQ; Polychromasia 1+
[2024-09-03] MEDS ORDERED: PIPERACIL/TAZO 3.375 GM VIAL IV ONE (03:55)
[2024-09-03] MEDS ORDERED: METRONIDAZOLE 500mg IVPB 500 MG/100 ML BAG IV ONE (03:55)
[2024-09-03] MEDS ORDERED: NA CHLORIDE 0.9% 100 ML ONE (03:55)
[2024-09-03] MEDS ORDERED: NA CHLORIDE 0.9% 500 ML ONE (04:14)
[2024-09-03] MEDS ORDERED: VANCOMYCIN 1 GM/VIAL ONE (04:14)
[2024-09-03] MEDS ORDERED: ALBUMIN HUMAN 25% 100 ML IV ONE (05:47)
--- NOTE | 2024-09-03 06:43 | EDPHYS ---
Physician Documentation [facility] Name: Elias Molina Age: 83 yrs Sex: Male : 1940 Arrival Date: 09/03/2024 Time: 01:45 Bed 5 Private MD: ED Physician Mario Williamson HPI: 09/03 01:50 This 83 yrs old Male presents to ER via Unassigned with complaints of sp4 bleeding from penis. 04:39 Patient is 83-year-old male heavily demented presents from [facility] after he pulled sp4 out his Richardson catheter. On presentation patient has moderate bleeding from the urethra associated with acute agitation. Urinary bladder is distended. Patient is not able to provide any history. senior care records reveals past medical history of right kidney injury, communication deficit, BPH, disorder of phosphorus, hypertension, dementia, hyperlipidemia, total hip replacement, bilateral hydronephrosis, urinary retention, prostatic hyperplasia, bladder outlet obstruction, chronic Richardson catheter, obstructive reflux uropathy, generalized muscle weakness, Alzheimer's type dementia, medications include aspirin 81 mg daily, atorvastatin 10 mg daily, Flomax 0.4 mg daily, rivastigmine patch for Alzheimer's disease, Xarelto 20 mg daily, buspirone 10 mg 2 times a day, metoprolol succinate 25 mg twice a day,. 05:01 Recent admission 07/29/2024 through 08/05/2024 right pelvic calyceal rupture with sp4 retroperitoneal extravasation, bilateral hydronephrosis, urinary retention, overflow incontinence, BPH, KAMARI, hyperkalemia, dementia, hypertension, hyperlipidemia, high poor phosphatemia.. Recent surgery 07/29/2024 patient was diagnosed with right pelvic calyceal rupture with retroperitoneal extravasation, bilateral hydronephrosis, urinary retention and BPH. Patient received cystoscopy, right retrograde pyelography, right 7 [place] by 26 cm JJ ureteral stent, 18 Argentine coud Richardson exchange, and cystogram.. Historical: - Allergies: 02:01 No Known Allergies; dd2 - PMHx: 02:01 Dementia; Hypercholesterolemia; Hypertensive disorder; HYPERLIPIDEMIA (Hypertensive dd2 disorder); Anxiety; Alzheimer's disease; OBSTRUCTIVE UROPATHY; BPH; - PSHx: 02:01 Right hip replacement; dd2 - Immunization history:: Adult Immunizations unknown. - Infectious Disease History:: UNKNOWN. - Social history:: Smoking status: unknown. - Family history:: not pertinent. ROS: 04:39 Constitutional: Negative for fever, chills, and weight loss, full ROS is not available sp4 secondary to dementia. 04:39 All other systems are negative, Exam: 04:39 Constitutional: This is a well developed, well nourished patient who is awake, sp4 moderate agitation, active bleeding from urethra, distended urinary bladder, moderate anxiety poorly cooperative behavior Head/Face: Normocephalic, atraumatic. Eyes: Pupils equal round and reactive to light, extra-ocular motions intact. Lids and lashes normal. Conjunctiva and sclera are not injected. Cornea within normal limits. Periorbital areas with no swelling, redness, or edema. ENT: Nares patent. No nasal discharge, no septal abnormalities noted. Tympanic membranes are normal and external auditory canals are clear. Oropharynx with no redness, swelling, or masses, exudates, or evidence of obstruction, uvula midline. Mucous membranes moist. Neck: Trachea midline, no thyromegaly or masses palpated, and no cervical lymphadenopathy. Supple, full range of motion without nuchal rigidity, or vertebral point tenderness. Chest/axilla: Normal chest wall appearance and motion. Nontender with no deformity. No lesions are appreciated. Cardiovascular: Regular rate and rhythm with a normal S1 and S2. No gallops, murmurs, or rubs. Normal PMI, no JVD. No pulse deficits. Respiratory: Lungs have equal breath sounds bilaterally, clear to auscultation and percussion. No rales, rhonchi or wheezes noted. No increased work of breathing, no retractions or nasal flaring. Abdomen/GI: Soft, with normal bowel sounds. No distension or tympany. No guarding or rebound. No evidence of tenderness throughout. Back: No spinal tenderness. No costovertebral tenderness. Male : Patient is circumcised male, normal descended testicles, there is actively bleeding urethra, moderate bleeding from urethral meatus. No sign of obvious urethral tear. Skin: Warm, dry with normal turgor. Normal color with no rashes, no lesions, and no evidence of cellulitis. MS/ Extremity: Pulses equal, no cyanosis. Neurovascular intact. Full, normal range of motion. Neuro: Awake and alert, oriented to self only, signs of moderate dementia, no signs of lateralizing neurologic deficits, moves all extremities, not able to fully cooperate for exam. 04:56 ECG was reviewed by the Attending Physician. EKG at 0 259 atrial fibrillation with sp4 RVR at 167, narrow complex tachycardia, Vital Signs: 01:57 BP 124 / 96; Pulse 97; Resp 88; Temp 97.8(TE); Pulse Ox 97% ; Weight 84.37 kg; dd2 02:54 BP 137 / 97; Pulse 168; Resp 19; Temp 99.4(O); Pulse Ox 100% ; dd2 03:30 BP 147 / 101; Pulse 141; Resp 19; Pulse Ox 99% on R/A; dd2 03:42 BP 116 / 89; Pulse 142; Resp 24; Pulse Ox 97% on R/A; dd2 04:00 BP 107 / 75; Pulse 141; Resp 22; Pulse Ox 98% on R/A; dd2 04:55 BP 97 / 54; Pulse 124; Resp 20; Pulse Ox 99% on R/A; dd2 05:11 BP 94 / 58; Pulse 116; Resp 20; Pulse Ox 100% on R/A; dd2 05:15 BP 93 / 47; Pulse 110; Resp 21; Pulse Ox 100% on R/A; dd2 05:30 BP 85 / 48; Pulse 110; Resp 20; Pulse Ox 100% on R/A; dd2 06:05 BP 77 / 46; Pulse 108; Resp 20; Pulse Ox 99% on R/A; dd2 07:20 BP 78 / 47; Pulse 89; Resp 18; Pulse Ox 100% on R/A; ph 07:31 BP 83 / 51; Pulse 102; Resp 24; Pulse Ox 100% ; bp 07:50 BP 96 / 66; Pulse 105; Resp 20; Pulse Ox 100% ; bp [place] Coma Score: 04:39 Eye Response: spontaneous(4). Motor Response: localizes pain(5). Verbal Response: sp4 inappropriate words(3). Total: 12. Procedures: 04:39 Performed Urinary catheter placement. 24 Argentine coud urinary catheter was placed by MD whittaker without complications. Patient instantly drained 1.8 L of bloody urine.. 06:44 Central Line: the site was prepped with Betadine, in sterile fashion, Chlorhexidine, a sp4 triple lumen catheter was inserted, in the left internal jugular vein, in 1 attempts. placement was verified, by CXR, by blood return, Ultrasound-guided central line, the site was dressed with 4X4s, Tegaderm, using sterile technique, the patient tolerated the procedure, well, Patient received central line secondary to acute persistent hypotension secondary to atrial fibrillation and presumed septic shock. MDM: 02:01 Medical Screening Exam initiated sp4 04:45 Differential diagnosis: UTI, urinary retention, Richardson catheter problem, prostatitis, sp4 urethritis. Data reviewed: vital signs, nurses notes, EMS record, old medical records, lab test result(s), EKG, radiologic studies. 06:45 Consideration of Admission/Observation Escalation of care including sp4 admission/observation considered. Management of patient was discussed with the following: Shotblast Operator: Transfer discussed with child care specialist and ICU attending.. ED course: Sepsis reevaluation complete. Patient is not able to get full 30 mL per cake septic fluid bolus secondary to sings of volume overload and elevated the BNP . 07:06 ED course: EXAM: CTAbdomen and Pelvis With Intravenous Contrast CLINICAL HISTORY: The sp4 patient is 83 years old and is Male; Bleeding from bladder. Previous right urinoma. TECHNIQUE: Axial computed tomography images of the abdomen and pelvis with intravenous contrast. Sagittal and coronal reformatted images were created and reviewed. This CT exam was performed using one or more of the following dose reduction techniques: automated exposure control, adjustment of the mA and/or kV according to patient size, and/or use of iterative reconstruction technique. COMPARISON: CTAbdomen Pelvis 07/29/2024. FINDINGS: Lung bases: Unremarkable. No mass. No consolidation. ABDOMEN: Liver: Unremarkable. No mass. Gallbladder and bile ducts: Unremarkable. No calcified stones. No ductal dilation. Pancreas: No findings to suggest acute pancreatitis. No mass visualized. No ductal dilation. Spleen: Unremarkable. No splenomegaly. Adrenals: Unremarkable. No mass. Kidneys and ureters: Right double-J ureter stent. Bilateral perinephric stranding without hydronephrosis or definite ureter stone. Stomach and bowel: Unremarkable. No obstruction. No mucosal thickening. PELVIS: Appendix: No findings to suggest acute appendicitis. Bladder: Richardson catheter in the bladder. Fat stranding superior to the bladder. Reproductive: Unremarkable as visualized. ABDOMEN and PELVIS: Intraperitoneal space: Unremarkable. No free air. No significant fluid collection. Bones/joints: Motion artifact as well as dense streak artifact in the pelvis from bilateral hip arthroplasty hardware. No hip dislocation. Bilateral total hip arthroplasty hardware. Partial ankylosis right SI joint. Degenerative changes in the lumbar spine without acute fracture visualized. Sclerotic lesion left iliac wing. Soft tissues: Unremarkable. Vasculature: Unremarkable. No abdominal aortic aneurysm. Lymph nodes: No pathologically enlarged lymph nodes. IMPRESSION: 1. Motion artifact as well as dense streak artifact in the pelvis from bilateral hip arthroplasty hardware. 2. Richardson catheter in the bladder. Fat stranding superior to the bladder. Correlate clinically for cystitis/UTI. 3. Right double-J ureter stent. Bilateral perinephric stranding without hydronephrosis or definite ureter stone. 4. Additional non-emergent findings as above. Electronically signed by: Berenice Rowell MD 09/03/2024 06:58 AM. 07:12 ED course: Instead of 2.5 L patient did receive 2 L. IV resuscitation . Sepsis sp4 reevaluation complete , patient has signs of volume overload and congestive heart failure further fluid infusion is not indicated.. 09/03 01:51 Order name: CBC with Diff; Complete Time: 04:32 sp4 09/03 01:51 Order name: CMP; Complete Time: 03:44 sp4 09/03 01:51 Order name: Lipase; Complete Time: 03:44 sp4 09/03 01:51 Order name: Urinalysis w/ reflexes; Complete Time: 03:44 sp4 09/03 02:01 Order name: PT-INR; Complete Time: 03:44 sp4 09/03 02:01 Order name: Type And Screen; Complete Time: 03:44 sp4 09/03 03:05 Order name: Troponin High Sensitivity; Complete Time: 03:44 sp4 09/03 03:05 Order name: BNP; Complete Time: 03:44 sp4 09/03 03:14 Order name: Manual Differential; Complete Time: 04:32 EDMS 09/03 03:23 Order name: Blood Culture Adult (2) sp4 09/03 03:35 Order name: Urine Culture EDVA 09/03 01:51 Order name: CT Abd/Pelvis - IV Contrast Only sp4 09/03 06:43 Order name: Chest Single View XRAY sp4 09/03 02:56 Order name: EKG; Complete Time: 02:57 lg3 09/03 01:51 Order name: IV Saline Lock; Complete Time: 02:44 sp4 09/03 01:51 Order name: Labs collected and sent; Complete Time: 02:44 sp4 09/03 02:08 Order name: Richardson: Placed by MD; Complete Time: 02:11 sp4 09/03 02:56 Order name: EKG - Nurse/Tech; Complete Time: 03:02 3 09/03 06:43 Order name: Central Line Dressing Kit; Complete Time: 06:55 sp4 09/03 06:43 Order name: Central Line Kit; Complete Time: 06:55 sp4 09/03 06:43 Order name: Chlorhexidine prep; Complete Time: 06:55 sp4 09/03 06:43 Order name: Consent for central line completed; Complete Time: 06:56 sp4 09/03 06:43 Order name: Line Caps x3; Complete Time: 06:56 sp4 09/03 06:43 Order name: NS Flushes x3; Complete Time: 06:56 sp4 09/03 06:43 Order name: Sterile Gloves; Complete Time: 06:56 sp4 09/03 06:43 Order name: Sterile Probe Cover; Complete Time: 06:56 sp4 EC:59 Rate is 167 beats/min. Rhythm is regular, A fib. QRS [place] is Normal. QRS interval is sp4 normal. QT interval is normal. T waves are Normal. ST Segment is depressed in leads V4, V5, V6. Clinical impression: Atrial Fibrillation. Interpreted by me. Reviewed by me. Administered Medications: :57 Drug: Geodon IM 20 mg IM once Route: IM; Site: left vastus lateralis; lg3 02:33 Drug: Ondansetron IVP 4 mg IVP once; over 2 minutes Route: IVP; Site: left forearm; lg3 02:48 Follow up: Response: No adverse reaction dd2 02:33 Drug: NS 0.9% IV 1000 ml IV at 1 bolus Per protocol; to be given as a bolus over 60 lg3 minutes Route: IV; Rate: 1 bolus; Site: left forearm; 03:33 Follow up: IV Status: Completed infusion; IV Intake: 1000ml dd2 02:33 Drug: morphine IVP or IV 2 mg IVP once over 4 mins Route: IVP; Infused Over: 4 mins; lg3 Site: left forearm; 02:48 Follow up: Response: No adverse reaction dd2 03:24 Drug: Diltiazem IVP 20 mg IVP once; Over 2 minutes Route: IVP; Site: left forearm; dd2 03:39 Follow up: Response: No adverse reaction dd2 03:25 Drug: Diltiazem IV 5 mg/hr IV at calculated rate See Administration Instructions; dd2 (standard dilution 125 mg diltiazem mixed in 125 mL NS; final concentration 1mg/mL). Recommended max rate 15 mg/hr; Titrate 5 mg/hr as often as every 15 minutes to achieve goal (see titration policy); Goal parameter HR less than 100 bpm Route: IV; Rate: calculated rate; Site: left forearm; 03:40 Follow up: Response: No adverse reaction dd2 06:00 Follow up: IV Status: Order to discontinue infusion dd2 04:13 Drug: metroNIDAZOLE IVPB 500 mg 100 ml IVPB at 200 ml/hr once over 30 mins Volume: 100 dd2 ml; Route: IVPB; Rate: 200 ml/hr; Infused Over: 30 mins; Site: right wrist; 04:28 Follow up: Response: No adverse reaction dd2 04:43 Follow up: IV Status: Completed infusion; IV Intake: 100ml dd2 05:30 Drug: Piperacillin-Tazobactam IVPB 3.375 grams IVPB once over 60 mins; (mix in NS 100 dd2 mL) Route: IVPB; Infused Over: 60 mins; Site: left forearm; 05:45 Follow up: Response: No adverse reaction dd2 06:30 Follow up: IV Status: Completed infusion; IV Intake: 100ml dd2 05:58 Drug: NS 0.9% IV 1000 ml IV at 1 bolus Per protocol; to be given as a bolus over 60 dd2 minutes Route: IV; Rate: 1 bolus; Site: left forearm; 06:13 Follow up: Response: No adverse reaction dd2 06:55 Follow up: IV Status: Completed infusion; IV Intake: 1000ml dd2 05:58 Drug: Albumin IVPB 25 grams 100 ml IVPB once; (Note: Albumin 25% concentration) Volume: dd2 100 ml; Route: IVPB; Site: right wrist; 06:13 Follow up: Response: No adverse reaction dd2 06:55 Follow up: IV Status: Completed infusion; IV Intake: 100ml dd2 06:55 Drug: vancoMYCIN IVPB 2 grams IVPB at calculated rate once Route: IVPB; Rate: dd2 calculated rate; Site: right wrist; 07:55 Follow up: IV Status: Infusion continued upon transfer bp 07:00 Drug: Norepinephrine IV 0.1 mcg/kg/min IV at calculated rate See Administration bp Instructions; (Standard concentration 4 mg / 250 mL D5W); Recommended max rate 3 mcg/kg/min; Titrate 0.05 mcg/kg/min as often as every 5 minutes to achieve goal (see titration policy); Goal parameter MAP greater than 65 mmHg. Route: IV; Rate: calculated rate; Site: left jugular; 07:55 Follow up: IV Status: Infusion continued upon transfer bp Disposition Summary: 09/03/24 06:43 Transfer Ordered Notes: Transfer Location: [facility] sp4 Reason: Higher level of care sp4 Condition: Stable sp4 Problem: new sp4 Symptoms: have improved sp4 Accepting Physician: [facility] ICU attending(09/03/24 08:02) bp Diagnosis - Severe sepsis with septic shock sp4 - Acute urethral tear secondary to dislodged Richardson catheter, acute traumatic sp4 hematuria, atrial fibrillation with RVR new onset, acute hypotension Forms: - Medication Reconciliation Form sp4 - SBAR form sp4 Critical care time excluding procedures: 04:45 Critical care time: Bedside Care: 46 minutes, Consultation: 12 minutes, Family sp4 Intervention: 12 minutes. Total time: 70 minutes Signatures: Dispatcher [employer] EDChance Loving, RN RN bp Veronica Oconnor RN RN lg3 Mario Williamson MD MD sp4 PASCUAL HARRIS RN RN dd2 Corrections: (The following items were deleted from the chart) 02:01 02:01 PROTIME (+INR)+COAG.LAB.BRZ ordered. EDMS EDMS 02:01 02:01 TYPE AND SCREEN+BB.LAB.BRZ ordered. EDMS EDMS 05:33 05:33 LACTATE+C.LAB.BRZ ordered. EDMS EDMS 08:02 06:43 [facility] ICU attending sp4 bp
--- NOTE | 2024-09-03 06:43 | ER ---
Nurse's Notes [facility] Name: Elias Molina Age: 83 yrs Sex: Male : 1940 Arrival Date: 09/03/2024 Time: 01:45 Bed 5 Private MD: Diagnosis: Severe sepsis with septic shock;Acute urethral tear secondary to dislodged Jonas catheter, acute traumatic hematuria, atrial fibrillation with RVR new onset, acute hypotension Presentation: 09/03 01:57 Chief complaint: EMS states: TONES OUT TO [facility] FOR PT PULLED OUT JONAS dd2 CATH. Coronavirus screen: At this time, the client does not indicate any symptoms associated with coronavirus-19. Ebola Screen: No symptoms or risks identified at this time. Initial Sepsis Screen: Does the patient meet any 2 criteria? No. Patient's initial sepsis screen is negative. Does the patient have a suspected source of infection? No. Patient's initial sepsis screen is negative. Risk Assessment: Do you want to hurt yourself or someone else? Unable to obtain. Onset of symptoms was September 03, 2024. Care prior to arrival:. 01:57 Method Of Arrival: EMS: [facility] dd2 01:57 Acuity: TIRSO 3 dd2 Triage Assessment: 02:01 General: Appears in no apparent distress. uncomfortable, Behavior is anxious. Pain: dd2 Unable to use pain scale. Does not appear to understand pain scale. Patient appears agitated, to be moaning. EENT: No deficits noted. No signs and/or symptoms were reported regarding the EENT system. Neuro: Level of Consciousness is awake, alert, confused, Oriented to person. Cardiovascular: Patient's skin is warm and dry. Respiratory: Airway is patent Respiratory effort is even, unlabored, Respiratory pattern is regular, symmetrical. GI: Abdomen is non-distended, Abd is soft and non tender X 4 quads. : Urine is arsalan blood, Bladder is distended. Derm: No deficits noted. No signs and/or symptoms reported regarding the dermatologic system. Musculoskeletal: No deficits noted. No signs and/or symptoms reported regarding the musculoskeletal system. Circulation, motion, and sensation intact. Range of motion: intact in all extremities. Historical: - Allergies: 02:01 No Known Allergies; dd2 - PMHx: 02:01 Dementia; Hypercholesterolemia; Hypertensive disorder; HYPERLIPIDEMIA (Hypertensive dd2 disorder); Anxiety; Alzheimer's disease; OBSTRUCTIVE UROPATHY; BPH; - PSHx: 02:01 Right hip replacement; dd2 - Immunization history:: Adult Immunizations unknown. - Infectious Disease History:: UNKNOWN. - Social history:: Smoking status: unknown. - Family history:: not pertinent. Screenin:07 [facility] ED Fall Risk Assessment (Adult) History of falling in the last 3 months, dd2 including since admission No falls in past 3 months (0 pts) Confusion or Disorientation Yes (5 pts) Intoxicated or Sedated No (0 pts) Impaired Gait Yes (1 pt) Mobility Assist Device Used Yes (1 pt) Altered Elimination Yes (1 pt) Score/Fall Risk Level 3 or more points = High Risk Oriented to surroundings, Maintained a safe environment, Educated pt \T\ family on fall prevention, incl call for assistance when getting out of bed, Assessed \T\ reinforced patient's understanding of fall precautions, Hourly rounding (assess needs \T\ fall precautionary measures) done, Used ambulatory aids as needed (educated on \T\ assisted with). Abuse screen: Denies threats or abuse. Nutritional screening: No deficits noted. Tuberculosis screening: No symptoms or risk factors identified. Assessment: 02:07 Reassessment: SEE TRIAGE ASSESSMENT FOR FULL ASSESSMENT. dd2 02:10 General: Appears in no apparent distress. uncomfortable, Behavior is anxious, restless, lg3 uncooperative. 03:30 Reassessment: Pt placed on reverse isolation. EKG performed. Meds given per MD order dd2 for increased heart rate 160's. 05:44 Reassessment: Dr. Williamson notified of Pt's BP. Cardizem d/c. dd2 07:21 Reassessment: Report called to accepting facility by TRISTEN Phillip. ph 07:54 Reassessment: EMS AT B/S FOR TRANSPORT. bp Vital Signs: 01:57 BP 124 / 96; Pulse 97; Resp 88; Temp 97.8(TE); Pulse Ox 97% ; Weight 84.37 kg; dd2 02:54 BP 137 / 97; Pulse 168; Resp 19; Temp 99.4(O); Pulse Ox 100% ; dd2 03:30 BP 147 / 101; Pulse 141; Resp 19; Pulse Ox 99% on R/A; dd2 03:42 BP 116 / 89; Pulse 142; Resp 24; Pulse Ox 97% on R/A; dd2 04:00 BP 107 / 75; Pulse 141; Resp 22; Pulse Ox 98% on R/A; dd2 04:55 BP 97 / 54; Pulse 124; Resp 20; Pulse Ox 99% on R/A; dd2 05:11 BP 94 / 58; Pulse 116; Resp 20; Pulse Ox 100% on R/A; dd2 05:15 BP 93 / 47; Pulse 110; Resp 21; Pulse Ox 100% on R/A; dd2 05:30 BP 85 / 48; Pulse 110; Resp 20; Pulse Ox 100% on R/A; dd2 06:05 BP 77 / 46; Pulse 108; Resp 20; Pulse Ox 99% on R/A; dd2 07:20 BP 78 / 47; Pulse 89; Resp 18; Pulse Ox 100% on R/A; ph 07:31 BP 83 / 51; Pulse 102; Resp 24; Pulse Ox 100% ; bp 07:50 BP 96 / 66; Pulse 105; Resp 20; Pulse Ox 100% ; bp Claudia Coma Score: 04:39 Eye Response: spontaneous(4). Motor Response: localizes pain(5). Verbal Response: sp4 inappropriate words(3). Total: 12. ED Course: 01:47 Patient arrived in ED. gm2 01:50 Mario Williamson MD is Attending Physician. sp4 02:01 Triage completed. dd2 02:01 Arm band placed on right wrist. Patient placed in an exam room, on a stretcher, on dd2 pulse oximetry. 02:07 Patient has correct armband on for positive identification. Bed in low position. Call dd2 light in reach. Side rails up X2. Client placed on continuous cardiac and pulse oximetry monitoring. NIBP monitoring applied. Door closed. Noise minimized. Warm blanket given. Pillow given. Verbal reassurance given. 02:07 No provider procedures requiring assistance completed. Jonas cath inserted, using dd2 sterile technique, by ED staff, balloon inflated, to gravity drainage, urine specimen collected. other 24 FR PLACED BY . Patient maintains SpO2 saturation greater than 95% on room air. 02:10 One-on-one care X 60 minutes. lg3 02:32 Inserted saline lock: 22 gauge in left forearm, using aseptic technique. Blood vk collected. Flushed with 10 mL NS. 02:32 Missed attempt(s): 20 gauge in right forearm. vk 03:02 CBC with Diff Sent. vk 03:02 CMP Sent. vk 03:02 Lipase Sent. vk 03:02 Urinalysis w/ reflexes Sent. vk 03:05 EKG done, by ED staff, reviewed by Mario Williamson MD. dd2 03:24 PASCUAL HARRIS, RN is Primary Nurse. dd2 03:40 First set of blood cultures drawn by ED staff. vk 04:12 Inserted saline lock: 22 gauge in right wrist, using aseptic technique. Flushed with 10 dd2 mL NS. 04:56 CT Abd/Pelvis - IV Contrast Only In Process Unspecified. EDMS 05:33 Initiated transfer with [facility] at [facility]. rv1 06:[address] Lee to [facility] CCU 2 Bed 16. Report # [id number]. rv1 07:17 Chest Single View XRAY In Process Unspecified. EDMS 07:54 Patient transferred, IV remains in place. bp 07:57 Provided Education on: NA. bp 14:24 Notified ED physician of other Gram negative rods found both bottles. Dr. Martines informed.ll1 14:35 Notified primary nurse of at [facility]. Gram negative rods growing both bottles. Report ll1 faxed to [phone]. Administered Medications: 01:57 Drug: Geodon IM 20 mg IM once Route: IM; Site: left vastus lateralis; lg3 02:33 Drug: Ondansetron IVP 4 mg IVP once; over 2 minutes Route: IVP; Site: left forearm; lg3 02:48 Follow up: Response: No adverse reaction dd2 02:33 Drug: NS 0.9% IV 1000 ml IV at 1 bolus Per protocol; to be given as a bolus over 60 lg3 minutes Route: IV; Rate: 1 bolus; Site: left forearm; 03:33 Follow up: IV Status: Completed infusion; IV Intake: 1000ml dd2 02:33 Drug: morphine IVP or IV 2 mg IVP once over 4 mins Route: IVP; Infused Over: 4 mins; lg3 Site: left forearm; 02:48 Follow up: Response: No adverse reaction dd2 03:24 Drug: Diltiazem IVP 20 mg IVP once; Over 2 minutes Route: IVP; Site: left forearm; dd2 03:39 Follow up: Response: No adverse reaction dd2 03:25 Drug: Diltiazem IV 5 mg/hr IV at calculated rate See Administration Instructions; dd2 (standard dilution 125 mg diltiazem mixed in 125 mL NS; final concentration 1mg/mL). Recommended max rate 15 mg/hr; Titrate 5 mg/hr as often as every 15 minutes to achieve goal (see titration policy); Goal parameter HR less than 100 bpm Route: IV; Rate: calculated rate; Site: left forearm; 03:40 Follow up: Response: No adverse reaction dd2 06:00 Follow up: IV Status: Order to discontinue infusion dd2 04:13 Drug: metroNIDAZOLE IVPB 500 mg 100 ml IVPB at 200 ml/hr once over 30 mins Volume: 100 dd2 ml; Route: IVPB; Rate: 200 ml/hr; Infused Over: 30 mins; Site: right wrist; 04:28 Follow up: Response: No adverse reaction dd2 04:43 Follow up: IV Status: Completed infusion; IV Intake: 100ml dd2 05:30 Drug: Piperacillin-Tazobactam IVPB 3.375 grams IVPB once over 60 mins; (mix in NS 100 dd2 mL) Route: IVPB; Infused Over: 60 mins; Site: left forearm; 05:45 Follow up: Response: No adverse reaction dd2 06:30 Follow up: IV Status: Completed infusion; IV Intake: 100ml dd2 05:58 Drug: NS 0.9% IV 1000 ml IV at 1 bolus Per protocol; to be given as a bolus over 60 dd2 minutes Route: IV; Rate: 1 bolus; Site: left forearm; 06:13 Follow up: Response: No adverse reaction dd2 06:55 Follow up: IV Status: Completed infusion; IV Intake: 1000ml dd2 05:58 Drug: Albumin IVPB 25 grams 100 ml IVPB once; (Note: Albumin 25% concentration) Volume: dd2 100 ml; Route: IVPB; Site: right wrist; 06:13 Follow up: Response: No adverse reaction dd2 06:55 Follow up: IV Status: Completed infusion; IV Intake: 100ml dd2 06:55 Drug: vancoMYCIN IVPB 2 grams IVPB at calculated rate once Route: IVPB; Rate: dd2 calculated rate; Site: right wrist; :55 Follow up: IV Status: Infusion continued upon transfer bp 07:00 Drug: Norepinephrine IV 0.1 mcg/kg/min IV at calculated rate See Administration bp Instructions; (Standard concentration 4 mg / 250 mL D5W); Recommended max rate 3 mcg/kg/min; Titrate 0.05 mcg/kg/min as often as every 5 minutes to achieve goal (see titration policy); Goal parameter MAP greater than 65 mmHg. Route: IV; Rate: calculated rate; Site: left jugular; :55 Follow up: IV Status: Infusion continued upon transfer bp Medication: 02:07 VIS not applicable for this client. dd2 Intake: 03:33 IV: 1000ml; Total: 1000ml. dd2 04:43 IV: 100ml; Total: 1100ml. dd2 06:30 IV: 100ml; Total: 1200ml. dd2 06:55 IV: 1000ml; Total: 2200ml. dd2 06:55 IV: 100ml; Total: 2300ml. dd2 Outcome: 06:43 ER care complete, transfer ordered by spAlexander 07:54 Transferred by ground EMS bp 07:54 Condition: stable 07:54 Instructed on the need for transfer, 08:02 Patient left the ED. bp Signatures: Dispatcher [employer] EDMS Spring Waldron, RN RN Chance Guajardo RN RN Veronica Coles RN RN lg3 Adelaida Hayden, RN RN ll1 Fatemeh Smith Sergey, MD MD sp4 Cinthia Leung Radha Coronel DIANA RN RN dd2 Corrections: (The following items were deleted from the chart) 14:24 14:17 Notified ED physician of other gram negative rods aerobic and anaerobic bottles. ll1 Dr. Martines and Dr. Meyer informed ll1 14:34 14:24 Notified ED physician of other Gram negative rode found both bottles. Dr. Martines ll1 informed. ll1
[2024-09-03] MEDS ORDERED: NOREPINEPHRINE BITARTRATE/D5W 4 MG/250 ML KIT IV ONE (06:58)
--- NOTE | 2024-09-03 07:11 | RAD REPORT ---
EXAM: CT Abdomen and Pelvis With Intravenous Contrast CLINICAL HISTORY: The patient is 83 years old and is Male; Bleeding from bladder. Previous right ur inoma. TECHNIQUE: Axial computed tomography images of the abdomen and pelvis with intravenous contrast. Sagittal and coronal reformatted images were created and reviewed. This CT exam was performed using one or more of the following dose reduction techniques: automated exposure control, adjustmen t of the mA and/or kV according to patient size, and/or use of iterative reconstruction technique. COMPARISON: CT Abdomen Pelvis 07/29/2024. FINDINGS: Lung bases: Unremarkable. No mass. No consolidation. ABDOMEN: Liver: Unremarkable. No mass. Gallbladder and bile ducts: Unremarkable. No calcified stones. No ductal dilation. Pancreas: No findings to suggest acute pancreatitis. No mass visualized. No ductal dilation. Spleen: Unremarkable. No splenomegaly. Adrenals: Unremarkable. No mass. Kidneys and ureters: Right double-J ureter stent. Bilateral perinephric stranding without hydrone phrosis or definite ureter stone. Stomach and bowel: Unremarkable. No obstruction. No mucosal thickening. PELVIS: Appendix: No findings to suggest acute appendicitis. Bladder: Richardson catheter in the bladder. Fat stranding superior to the bladder. Reproductive: Unremarkable as visualized. ABDOMEN and PELVIS: Intraperitoneal space: Unremarkable. No free air. No significant fluid collection. Bones/joints: Motion artifact as well as dense streak artifact in the pelvis from bilateral hip a rthroplasty hardware. No hip dislocation. Bilateral total hip arthroplasty hardware. Partial ankylosis right SI joint. Degenerative changes in the lumbar spine without acute frac ture visualized. Sclerotic lesion left iliac wing. Soft tissues: Unremarkable. Vasculature: Unremarkable. No abdominal aortic aneurysm. Lymph nodes: No pathologically enlarged lymph nodes. IMPRESSION: 1. Motion artifact as well as dense streak artifact in the pelvis from bilateral hip arthroplasty h ardware. 2. Richardson catheter in the bladder. Fat stranding superior to the bladder. Correlate clinically for c ystitis/UTI. 3. Right double-J ureter stent. Bilateral perinephric stranding without hydronephrosis or definite ureter stone. 4. Additional non-emergent findings as above. Electronically signed by: Berenice Rowell MD 09/03/2024 06:58 AM [employer] ND Due to temporary technical issues with the [employer] reporting system, reports are being fara d by the in-house radiologist without review as a courtesy to ensure prompt reporting the interpreting radiologist is fully responsible for the content of the report. Transcribed Date/Time: 09/03/2024 7:10 AM
--- NOTE | 2024-09-03 07:51 | RAD REPORT ---
Procedure: Chest Single View HISTORY: Central venous line placement COMPARISON: none FINDINGS: The lungs appear clear of acute infiltrate. No significant pleural effusion noted. The heart is mildly enlarged. Central venous line with its tip in the SVC. No pneumothorax. Mild prominence of the mediastinum could be secondary to lymphadenopathy or aortic aneurysm..
[2024-09-03 08:32] VITALS: TEMP 99.4
[2024-09-03 08:42] VITALS: O2SAT 100
[2024-09-03 08:44] VITALS: BP 96/66
--- NOTE | 2024-09-04 12:58 | EKG ---
Test Date: 2024-09-03 Test Time: 02:59:44 Recruiter Coordinator: GRECIA MEASUREMENT RESULTS: Intervals: Rate: 167 OR: QRSD: 102 QT: 278 QTc: 463 [place]: P: OR: QRS: 114 T: -56 INTERPRETIVE STATEMENTS: Atrial flutter Incomplete right bundle branch block Possible Right ventricular hypertrophy Marked ST abnormality, possible inferior subendocardial injury Abnormal ECG Compared to ECG 07/01/2024 16:47:25 Incomplete right bundle-branch block now present ST (T wave) deviation now present Right bundle-branch block no longer present Left posterior fascicular block no longer present Bifascicular block no longer present Electronically Signed On 09-04-24 12:58:02 [employer] DEVELOPER by Nigel Madera
== END 2024-09-03 08:02 | disposition short-term general hospital (02) ==
LOC: ER 01:45
DX: S37.39XA Other injury of urethra, initial encounter (principal); R65.21 Severe sepsis with septic shock; T83.028A Displacement of other urinary catheter, initial encounter; I95.9 Hypotension, unspecified; I48.91 Unspecified atrial fibrillation; G30.9 Alzheimer's disease, unspecified; F02.80 Dementia in other diseases classified elsewhere, unspecified severity, without behavioral disturbance, psychotic disturbance, mood disturbance, and anxiety; I10 Essential (primary) hypertension
CPT/HCPCS: 93005; 87040 ×2; 87088; 85025; 81001; 87086; 36415; 86900; 86850; 87205 ×4; 85610; 86901; 87077 ×6; 87186 ×6; 84484; 83690; 80053; 83880; 74177; 71045; 51702; 96372; 99291; 99292; 36556; Q9967; J2543; J3486; J2270; J2405; P9047; J7040; J7030 ×2

== ENCOUNTER 2024-09-15 18:27 | Emergency (ER) | payer OTHER ==
--- NOTE | 2024-09-15 19:02 | ER ---
Nurse's Notes [facility] Name: Elias Molina Age: 83 yrs Sex: Male : 1940 Arrival Date: 09/15/2024 Time: 18:27 Bed 2 Private MD: Diagnosis: Encounter for general adult medical examination Presentation: 09/15 18:31 Chief complaint: EMS states: PENITENTIARY STAFF CALLED BECAUSE PT HAD LOW BLOOD bp PRESSURE. PT DOES NOT HAVE LOW BLOOD PRESSURE. Coronavirus screen: At this time, the client does not indicate any symptoms associated with coronavirus-19. Ebola Screen: No symptoms or risks identified at this time. Initial Sepsis Screen: Does the patient meet any 2 criteria? No. Patient's initial sepsis screen is negative. Does the patient have a suspected source of infection? No. Patient's initial sepsis screen is negative. Risk Assessment: Do you want to hurt yourself or someone else? Patient reports no desire to harm self or others. Onset of symptoms is unknown. 18:31 Method Of Arrival: EMS: [facility] bp 18:31 Acuity: TIRSO 5 bp Triage Assessment: 18:32 General: Appears in no apparent distress. comfortable, Behavior is calm, cooperative. bp Pain: Denies pain. EENT: No deficits noted. Neuro: Level of Consciousness is awake, obeys commands, confused, Oriented to person, place. Cardiovascular: Rhythm is sinus rhythm. Respiratory: No deficits noted. GI: No signs and/or symptoms were reported involving the gastrointestinal system. : No signs and/or symptoms were reported regarding the genitourinary system. Derm: No deficits noted. Musculoskeletal: No deficits noted. Historical: - Allergies: 18:32 No Known Allergies; bp - PMHx: 18:32 Alzheimer's disease; Anxiety; BPH; Dementia; Hypercholesterolemia; Hyperlipidemia bp (Hypertensive disord); Hypertensive disorder; OBSTRUCTIVE UROPATHY; - PSHx: 18:32 Right hip replacement; bp - Immunization history:: Adult Immunizations up to date. - Infectious Disease History:: Denies. - Social history:: Smoking status: Patient denies any tobacco usage or history of. Screenin:33 [facility] ED Fall Risk Assessment (Adult) History of falling in the last 3 months, bp including since admission No falls in past 3 months (0 pts) Confusion or Disorientation Yes (5 pts) Intoxicated or Sedated No (0 pts) Impaired Gait No (0 pts) Mobility Assist Device Used No (0 pt) Altered Elimination No (0 pt) Score/Fall Risk Level 3 or more points = High Risk Oriented to surroundings. Abuse screen: Denies threats or abuse. Denies injuries from another. Nutritional screening: No deficits noted. Tuberculosis screening: No symptoms or risk factors identified. Assessment: 18:33 General: Appears in no apparent distress. Behavior is calm, cooperative. Pain: Denies bp pain. 19:37 Reassessment: Patient appears in no apparent distress at this time. Patient and/or bm8 family updated on plan of care and expected duration. Pain level reassessed. Patient is alert, oriented x 3, equal unlabored respirations, skin warm/dry/pink. Patient denies pain at this time. Patient states feeling better. Patient states symptoms have improved. 19:39 Reassessment: pt awaiting ambulance for transportation back to [place]. bm8 19:41 General: called [facility] and requested ambulance ride home for pt. Gave report to bmAdrian Lugo RN. Vital Signs: 18:31 BP 136 / 76; Pulse 96; Resp 16; Temp 98; Pulse Ox 99% ; bp 19:00 BP 124 / 74; ec2 19:04 BP 124 / 74; Pulse 86; Resp 18; Temp 98; Pulse Ox 98% ; Pain 0/10; bm8 19:04 Pain Scale: Adult bm8 Claudia Coma Score: 19:04 Eye Response: spontaneous(4). Motor Response: obeys commands(6). Verbal Response: bm8 oriented(5). Total: 15. ED Course: 18:28 Patient arrived in ED. ll1 18:31 Chance Hendrix, TRISTEN is Primary Nurse. bp 18:32 Triage completed. bp 18:32 Arm band placed on. bp 18:33 Davin Meyer MD is Attending Physician. ec2 18:33 Patient has correct armband on for positive identification. bp 19:04 Provided Education on: post er care. Client placed on continuous cardiac and pulse bm8 oximetry monitoring. NIBP monitoring applied. Pulse ox on. NIBP on. Door closed. Warm blanket given. Pillow given. Verbal reassurance given. Head of bed elevated. 19:37 No provider procedures requiring assistance completed. Coud inserted, using sterile bm8 technique, 20 Fr. Returned bloody urine. Returned cloudy urine. To gravity drainage. Urine specimen collected. Patient did not have IV access during this emergency room visit. Patient maintains SpO2 saturation greater than 95% on room air. Administered Medications: 19:36 Drug: Trimethoprim-Sulfamethoxazole PO (160 mg-800 mg (DS) 1 tablet PO once Route: PO; bm8 19:38 Follow up: Response: No adverse reaction bm8 Medication: 18:33 VIS not applicable for this client. bp Outcome: 19:01 Discharge ordered by . ec2 19:37 Discharged to home via ambulance, bm8 19:37 Condition: stable 19:37 Discharge instructions given to patient, family, Instructed on discharge instructions, follow up and referral plans. no drinking with medication, no driving heavy equipment, medication usage, safety practices, Demonstrated understanding of instructions, follow-up care, medications, Prescriptions given X 1, 20:30 Patient left the ED. bm8 Signatures: Chance Hendrix RN RN bp Adelaida Hayden RN RN 1 Davin Meyer MD MD 2 Vance Kruse RN RN bm8 Corrections: (The following items were deleted from the chart) 18:35 18:31 Chief complaint: EMS states: PENITENTIARY STAFF CALLED BECAUSE PT HAD HIGH HEART bp RATE. PT DOES NOT HAVE HIGH HEART RATE bp
--- NOTE | 2024-09-15 19:02 | EDPHYS ---
Physician Documentation [facility] Name: Elias Molina Age: 83 yrs Sex: Male : 1940 Arrival Date: 09/15/2024 Time: 18:27 Bed 2 Private MD: ED Physician Davin Meyer HPI: 09/15 18:43 This 83 yrs old Male presents to ER via EMS with complaints of ASYMPTOMATIC. ec2 18:43 Patient arrives today for evaluation of possible low blood pressure. Patient has no ec2 specific complaints. EMS reports normotensive blood pressures since their evaluation. Patient is normotensive here.. Historical: - Allergies: 18:32 No Known Allergies; bp - PMHx: 18:32 Alzheimer's disease; Anxiety; BPH; Dementia; Hypercholesterolemia; Hyperlipidemia bp (Hypertensive disord); Hypertensive disorder; OBSTRUCTIVE UROPATHY; - PSHx: 18:32 Right hip replacement; bp - Immunization history:: Adult Immunizations up to date. - Infectious Disease History:: Denies. - Social history:: Smoking status: Patient denies any tobacco usage or history of. ROS: 18:43 Constitutional: as per hpi ec2 Exam: 18:43 Constitutional: GEN: NAD Head: atraumatic Eyes: EOMI Ears: External ears are ec2 normal. CV: regular rate LUNGS: no respiratory distress ABD: non-distended, soft, non-tender SKIN: no evidence of rashes MSK: no evidence of trauma Vital Signs: 18:31 BP 136 / 76; Pulse 96; Resp 16; Temp 98; Pulse Ox 99% ; bp 19:00 BP 124 / 74; ec2 19:04 BP 124 / 74; Pulse 86; Resp 18; Temp 98; Pulse Ox 98% ; Pain 0/10; bm8 19:04 Pain Scale: Adult bm8 Claudia Coma Score: 19:04 Eye Response: spontaneous(4). Motor Response: obeys commands(6). Verbal Response: bm8 oriented(5). Total: 15. MDM: 18:39 Medical Screening Exam initiated ec2 18:43 Data reviewed: vital signs, nurses notes, EMS record. ED course: Patient arrives today ec2 for possible hypertension. Examination is unrevealing. Will repeat vital signs and assure no hypotension or tachycardia evident. Patient is well-appearing and cooperative and otherwise in no acute distress and has no specific complaints.. 19:00 ED course: On reassessment patient with no evidence of hypotension or tachycardia, ec2 patient with reassuring vital signs. Will discharge home. Return precautions given.. 19:11 ED course: Patient reportedly is having urinary retention when nursing called to give ec2 report. Will place Richardson and send back.. 09/15 19:11 Order name: UAM; Complete Time: 20:28 ec2 09/15 20:29 Order name: Urine Culture EDMO 09/15 18:44 Order name: Vital Signs: repeat VS 1855; Complete Time: 19:04 ec2 09/15 19:11 Order name: Richardson; Complete Time: 19:36 ec2 Administered Medications: 19:36 Drug: Trimethoprim-Sulfamethoxazole PO (160 mg-800 mg (DS) 1 tablet PO once Route: PO; bm8 19:38 Follow up: Response: No adverse reaction bm8 Disposition Summary: 09/15/24 19:01 Discharge Ordered Notes: Location: Home ec2 Condition: Stable ec2 Diagnosis - Encounter for general adult medical examination ec2 Followup: ec2 - With: Private Physician - When: - Reason: Re-evaluation by your physician Discharge Instructions: - Discharge Summary Sheet ec2 - Medical Screening Exam ec2 Forms: - Medication Reconciliation Form ec2 - Antibiotic Education ec2 - Prescription Opioid Use ec2 - Patient Portal Instructions ec2 - Leadership Thank You Letter ec2 Prescriptions: - Bactrim DS 800-160 mg Oral Tablet - take 1 tablet ORAL route every 12 hours for 7 days; 14 tablet; Refills: 0, ec2 Product Selection Permitted Signatures: Dispatcher [employer] Chance Pineda, RN RN Davin Meyer MD MD ec2 Vance Kruse RN RN bm8
[2024-09-15] MEDS ORDERED: SMZ./TMP. 800/160 MG TABLET ONE (19:28)
[2024-09-15 20:24] LABS: Specific Gravity 1.017 (1.005-1.030); Sqamous Epithelial None Seen /HPF (None Seen); Urine Bacteria <20 /HPF (<20); Urine Bilirubin NEGATIVE (Negative); Urine Blood 3+ (OVER) (Negative); Urine Clarity Extremely Turbid (Clear); Urine Color Yellow (Yellow); Urine Crystals Unidentified Few /HPF (None Seen); Urine Culture Reflex Order REFLEXED; Urine Glucose NEGATIVE (Negative); Urine Ketones NEGATIVE (Negative); Urine Micro Reflex YN NO BILL MICROSCOPIC; Urine Mucus Slight /HPF (None Seen); Urine Nitrite NEGATIVE (Negative); Urine Protein 2+ (Negative); Urine RBC >50 /HPF (None Seen); Urine Urobilinogen Normal (Normal); Urine WBC >50 /HPF (<5); Urine WBC Clump Rare /HPF (None Seen); Urine Yeast (Budding) Few /HPF (None Seen)
[2024-09-15 20:34] VITALS: TEMP 98
[2024-09-15 20:35] VITALS: BP 124/74
[2024-09-15 20:36] VITALS: O2SAT 98
== END 2024-09-15 20:30 | disposition home or self-care (01) ==
LOC: ER 18:27
DX: Z71.1 Person with feared health complaint in whom no diagnosis is made (principal); R33.9 Retention of urine, unspecified; G30.9 Alzheimer's disease, unspecified; F02.80 Dementia in other diseases classified elsewhere, unspecified severity, without behavioral disturbance, psychotic disturbance, mood disturbance, and anxiety
CPT/HCPCS: 81001; 87086; 87088; 99284

== ENCOUNTER 2024-09-21 02:18 | Emergency (ER) | payer OTHER ==
--- NOTE | 2024-09-21 02:30 | ER ---
Nurse's Notes [facility] Name: Elias Molina Age: 84 yrs Sex: Male : 1940 Arrival Date: 09/21/2024 Time: 02:18 Bed 6 Private MD: Diagnosis: Other mechanical complication of urinary (indwelling) catheter;Displacement of urinary (indwelling) catheter;Hematuria, unspecified;Dementia in other diseases classified elsewhere without behavioral disturbance Presentation: 09/21 02:19 Chief complaint: Patient states: REMOVED JONAS CATHETER . NEEDS CATHETER INSERTION. ha1 02:19 Coronavirus screen: Client denies travel out of the [place] in the last 14 days. Ebola ha1 Screen: No symptoms or risks identified at this time. Initial Sepsis Screen: Does the patient meet any 2 criteria? No. Patient's initial sepsis screen is negative. Does the patient have a suspected source of infection? No. Patient's initial sepsis screen is negative. Risk Assessment: Do you want to hurt yourself or someone else? Patient reports no desire to harm self or others. Onset of symptoms was September 21, 2024. :19 Method Of Arrival: EMS: [facility] ha1 02:19 Acuity: TIRSO 4 ha1 Triage Assessment: : General: Appears comfortable, Behavior is cooperative. Pain: Unable to use pain scale. ha1 FLACC scale score is 0 out of 10. Neuro: Level of Consciousness is awake, alert, Oriented to person. Cardiovascular: Capillary refill < 3 seconds Patient's skin is warm and dry. Respiratory: Airway is patent Respiratory effort is even, unlabored, Respiratory pattern is regular, symmetrical. Historical: - Allergies: : No Known Allergies; ha1 - Home Meds: : lisinopril Oral [Active]; ha1 - PMHx: :19 Alzheimer's disease; Anxiety; BPH; Dementia; Hypercholesterolemia; Hyperlipidemia ha1 (Hypertensive disord); Hypertensive disorder; OBSTRUCTIVE UROPATHY; - PSHx: : Right hip replacement; ha1 - Immunization history:: Adult Immunizations up to date. - Infectious Disease History:: Denies. - Family history:: not pertinent. - Social history:: Smoking status: unknown. Screenin:19 [facility] ED Fall Risk Assessment (Adult) History of falling in the last 3 months, br2 including since admission Altered Elimination. 02:29 Abuse screen: Denies threats or abuse. Denies injuries from another. Nutritional ha1 screening: No deficits noted. Tuberculosis screening: No symptoms or risk factors identified. Assessment: 02:19 Reassessment:. General: Appears in no apparent distress. comfortable, Behavior is calm, br2 cooperative. Pain: Unable to use pain scale. ALZHEIMERS. Neuro: Galaviz Agitation-Sedation Scale (RASS): 0 - Alert and Calm Level of Consciousness is awake, alert, confused, Oriented to person. : BLOOD ON MEATUS DUE TO PT PULLING OUT JONAS CATHETER. 03:01 Reassessment: [place] CALLED AND SPOKE TO NURSE ABOUT DISCHARGE INSTRUCTIONS. SHE br2 VERBALIZED UNDERSTANDING AND IS CALLING EMS TO PICK PT UP. Vital Signs: 02:19 BP 124 / 86; Pulse 85; Resp 17 S; Temp 97.1(T); Pulse Ox 100% on R/A; Weight 74.84 kg; ha1 Height 5 ft. 7 in. ; 02:19 Body Mass Index 25.84 (74.84 kg, 170.18 cm) ha1 ED Course: 02:19 Patient arrived in ED. [email or web address] 02:20 Royal Woodard MD is Attending Physician. maynor 02:20 Arm band placed on right wrist. br2 02:27 Triage completed. ha1 02:28 Zack Parsons MD is Referral Physician. maynor 02:31 Rose Winkler, TRISTEN is Primary Nurse. br2 02:32 Urine Culture Sent. br2 02:32 Urinalysis w/ reflexes Sent. br2 03:01 Jonas cath inserted, using sterile technique, 16 Fr., by ED staff, balloon inflated, to br2 gravity drainage, urine specimen collected. 03:01 [place] called and stated [facility] will be here to supervisor opening and picking pt in 30 min. sp 03:46 No provider procedures requiring assistance completed. Patient did not have IV access br2 during this emergency room visit. Administered Medications: 02:53 Drug: Ciprofloxacin PO 500 mg PO once Route: PO; br2 03:28 Follow up: Response: No adverse reaction br2 Outcome: 02:29 Discharge ordered by . maynor 03:28 Discharged to retirement. Report called to NURSE...[place] br2 03:28 Condition: good 03:28 Discharge instructions given to patient, retirement, EMS, Instructed on discharge instructions, follow up and referral plans. Demonstrated understanding of medications, Prescriptions given X 1 03:47 Patient left the ED. br2 Signatures: Royal Woodard MD MD cha Pinkerton, Shawna sp Jeffries, Jennifer [email or web address] Lisa Escobedo, RN RN ha1 Rose Winkler RN RN br2
--- NOTE | 2024-09-21 02:30 | EDPHYS ---
Physician Documentation [facility] Name: Elias Molina Age: 84 yrs Sex: Male : 1940 Arrival Date: 09/21/2024 Time: 02:18 Bed 6 Private MD: ED Physician Royal Woodard HPI: 09/21 02:23 This 84 yrs old Male presents to ER via Unassigned with complaints of Problem maynor With Urinary Catheter. 02:23 The patient presents with a Richardson catheter problem, was pulled out accidentally. Onset: maynor The symptoms/episode began/occurred just prior to arrival. Modifying factors: The symptoms are alleviated by nothing, the symptoms are aggravated by nothing. Associated signs and symptoms: The patient has no apparent associated signs or symptoms. Severity of symptoms: At their worst the symptoms were mild, moderate, in the emergency department the symptoms are unchanged. It is unknown whether or not the patient has had similar symptoms in the past. Historical: - Allergies: 02:19 No Known Allergies; ha1 - Home Meds: 02:19 lisinopril Oral [Active]; ha1 - PMHx: 02:19 Alzheimer's disease; Anxiety; BPH; Dementia; Hypercholesterolemia; Hyperlipidemia ha1 (Hypertensive disord); Hypertensive disorder; OBSTRUCTIVE UROPATHY; - PSHx: 02:19 Right hip replacement; ha1 - Immunization history:: Adult Immunizations up to date. - Infectious Disease History:: Denies. - Family history:: not pertinent. - Social history:: Smoking status: unknown. ROS: 02:23 Constitutional: Negative for fever, chills, and weight loss, Eyes: Negative for injury, maynor pain, redness, and discharge, ENT: Negative for injury, pain, and discharge, Neck: Negative for injury, pain, and swelling, Cardiovascular: Negative for chest pain, palpitations, and edema, Respiratory: Negative for shortness of breath, cough, wheezing, and pleuritic chest pain, Abdomen/GI: Negative for abdominal pain, nausea, vomiting, diarrhea, and constipation, Back: Negative for injury and pain, MS/Extremity: Negative for injury and deformity, Skin: Negative for injury, rash, and discoloration, Neuro: Negative for headache, weakness, numbness, tingling, and seizure, Psych: Negative for depression, anxiety, suicide ideation, homicidal ideation, and hallucinations, Allergy/Immunology: Negative for hives, rash, and allergies, Endocrine: Negative for neck swelling, polydipsia, polyuria, polyphagia, and marked weight changes, Hematologic/Lymphatic: Negative for swollen nodes, abnormal bleeding, and unusual bruising, : : Positive for hematuria, Exam: : Constitutional: This is a well developed, well nourished patient who is awake, alert, maynor and in no acute distress. Head/Face: Normocephalic, atraumatic. Eyes: Pupils equal round and reactive to light, extra-ocular motions intact. Lids and lashes normal. Conjunctiva and sclera are non-icteric and not injected. Cornea within normal limits. Periorbital areas with no swelling, redness, or edema. ENT: Nares patent. No nasal discharge, no septal abnormalities noted. Tympanic membranes are normal and external auditory canals are clear. Oropharynx with no redness, swelling, or masses, exudates, or evidence of obstruction, uvula midline. Mucous membranes moist. Neck: Trachea midline, no thyromegaly or masses palpated, and no cervical lymphadenopathy. Supple, full range of motion without nuchal rigidity, or vertebral point tenderness. No Meningismus. Chest/axilla: Normal chest wall appearance and motion. Nontender with no deformity. No lesions are appreciated. Cardiovascular: Regular rate and rhythm with a normal S1 and S2. No gallops, murmurs, or rubs. Normal PMI, no JVD. No pulse deficits. Respiratory: Lungs have equal breath sounds bilaterally, clear to auscultation and percussion. No rales, rhonchi or wheezes noted. No increased work of breathing, no retractions or nasal flaring. Abdomen/GI: Soft, non-tender, with normal bowel sounds. No distension or tympany. No guarding or rebound. No evidence of tenderness throughout. Back: No spinal tenderness. No costovertebral tenderness. Full range of motion. Skin: Warm, dry with normal turgor. Normal color with no rashes, no lesions, and no evidence of cellulitis. MS/ Extremity: Pulses equal, no cyanosis. Neurovascular intact. Full, normal range of motion., bilateral aka Neuro: Awake and alert, GCS 15, oriented to person, place, time, and situation. Cranial nerves II-XII grossly intact. Motor strength 5/5 in all extremities. Sensory grossly intact. Cerebellar exam normal. Normal gait. Psych: Awake, alert, with orientation to person, place and time. Behavior, mood, and affect are within normal limits. 02:23 : CVA tenderness, is absent, Male external genitalia: normal, Bladder: distension, that is mild, that is moderate, Sexual behavior: the patient is not sexually active, PULLED OUT PRIOR TO ARRIVAL, Vital Signs: 02:19 BP 124 / 86; Pulse 85; Resp 17 S; Temp 97.1(T); Pulse Ox 100% on R/A; Weight 74.84 kg; ha1 Height 5 ft. 7 in. ; 02:19 Body Mass Index 25.84 (74.84 kg, 170.18 cm) ha1 MDM: 02:20 Medical Screening Exam initiated maynor 02:26 Differential diagnosis: UTI, urinary retention, Richardson catheter problem, prostatitis, maynor urethritis. Data reviewed: vital signs, nurses notes, lab test result(s), urinalysis. Consideration of Admission/Observation Escalation of care including admission/observation considered. I considered the following discharge prescriptions or medication management in the emergency department Medications were administered in the Emergency Department. See MAR. Test considered but Not performed: Labs: NO LABS. Care significantly affected by the following chronic conditions: Diabetes, Hypertension, DEMENTIA. 09/21 02:21 Order name: Urinalysis w/ reflexes; Complete Time: 03:45 [facility] 09/21 02:21 Order name: Urine Culture [facility] 09/21 02:21 Order name: Richardson; Complete Time: 02:25 [facility] 09/21 02:21 Order name: Leg Bag; Complete Time: 03:47 [facility] Administered Medications: 02:53 Drug: Ciprofloxacin PO 500 mg PO once Route: PO; br2 03:28 Follow up: Response: No adverse reaction br2 Disposition Summary: 09/21/24 02:29 Discharge Ordered Notes: Location: Home maynor Problem: new maynor Symptoms: have improved maynor Condition: Stable maynor Diagnosis - Other mechanical complication of urinary (indwelling) catheter maynor - Displacement of urinary (indwelling) catheter maynor - Hematuria, unspecified maynor - Dementia in other diseases classified elsewhere without behavioral disturbance maynor Followup: maynor - With: Private Physician - When: 2 - 3 days - Reason: Recheck today's complaints, Continuance of care, Re-evaluation by your physician Followup: maynor - With: Zack Parsons MD - When: 2 - 3 days - Reason: Recheck today's complaints, Re-evaluation by your physician Discharge Instructions: - Discharge Summary Sheet maynor - Dementia maynor - Indwelling Urinary Catheter Care, Adult maynor - Hematuria, Adult maynor - Indwelling Urinary Catheter Care, Adult, [id number] [facility] Forms: - Medication Reconciliation Form maynor - Antibiotic Education maynor - Prescription Opioid Use maynor - Patient Portal Instructions maynor - Leadership Thank You Letter [facility] Prescriptions: - Cipro 250 mg Oral tablet - take 1 tablet ORAL route every 12 hours; 14 tablet; Refills: 0, Product maynor Selection Permitted Signatures: Dispatcher [employer] EDMS Royal Woodard MD MD cha Ayala, Heidy, RN RN ha1 Rose Winkler RN RN br2 Corrections: (The following items were deleted from the chart) 02:21 02:21 Urinalysis+U.LAB.BRZ ordered. EDMS EDMS 02:21 02:21 Urine Culture+BA.LAB.BRZ ordered. EDMS EDMS
[2024-09-21] MEDS ORDERED: CIPROFLOXACIN HCL 500 MG TAB ONE (02:37)
[2024-09-21 03:00] LABS: Sqamous Epithelial None Seen /HPF (None Seen); Urine Bacteria <20 /HPF (<20); Urine Bilirubin NEGATIVE (Negative); Urine Blood 3+ (OVER) (Negative); Urine Clarity Extremely Turbid (Clear); Urine Color Yellow (Yellow); Urine Crystals Unidentified Few /HPF (None Seen); Urine Culture Reflex Order REFLEXED; Urine Glucose NEGATIVE (Negative); Urine Ketones NEGATIVE (Negative); Urine Microscopic Reflex YN ORDER UMIC; Urine Mucus Slight /HPF (None Seen); Urine Nitrite NEGATIVE (Negative); Urine Protein 2+ (Negative); Urine RBC >50 /HPF (None Seen); Urine Urobilinogen 1+ (Normal); Urine WBC >50 /HPF (<5); Urine WBC Clump Rare /HPF (None Seen); Urine Yeast (Budding) Occasional /HPF (None Seen); Urine pH 6.5 (5.0-7.0)
[2024-09-21 03:57] VITALS: BP 124/86; TEMP 97.1; O2SAT 100
== END 2024-09-21 03:47 | disposition home or self-care (01) ==
LOC: ER 02:18
DX: T83.028A Displacement of other urinary catheter, initial encounter (principal); R31.9 Hematuria, unspecified; G30.9 Alzheimer's disease, unspecified; F02.80 Dementia in other diseases classified elsewhere, unspecified severity, without behavioral disturbance, psychotic disturbance, mood disturbance, and anxiety
CPT/HCPCS: 51702; 81001; 87086; 87088; 99284

== ENCOUNTER 2024-09-24 10:46 | Emergency (ER) | payer OTHER ==
[2024-09-24] MEDS ORDERED: NA CHLORIDE 0.9% 1,000 ML ONE (11:09)
--- NOTE | 2024-09-24 12:39 | RAD REPORT ---
Procedure: Chest Single View HISTORY: Hypotension COMPARISON: August 2024 FINDINGS: The lungs appear clear of acute infiltrate. No significant pleural effusion noted. The heart is mildly enlarged IMPRESSION: No acute abnormality is displayed.
[2024-09-24 12:46] LABS: Absolute Basophils 0.1 K/uL (0-0.5); Absolute Eosinophils 0.1 K/uL (0-0.5); Absolute Lymphocytes (CBC) 0.8 K/uL (0.7-4.9); Absolute Monocytes 0.6 K/uL (0.1-1.3); Absolute Neutrophil 5.5 K/uL (1.8-8.0); Basophils % 1.2 % (0-1.3); Hematocrit 33.8 % (39.6-49.0); Lymphocytes % 11.4 % (15.3-44.8); MCH 27.2 pg (27.0-35.0); MCHC 32.4 g/dL (32.0-36.0); MCV 84.1 fL (80-100); Monocytes % 8.9 % (3.3-12.3); Neutrophils % 76.5 % (41.7-73.7); Nucleated Red Blood Cells % 0.1 % (0-0); Platelets 203 thou/uL (152-406); RBC Red Blood Cell Count 4.03 M/uL (4.33-5.43); Red Cell Distribution Width 20.8 % (12.1-15.2)
[2024-09-24 13:05] LABS: Specific Gravity 1.011 (1.005-1.030); Sqamous Epithelial None Seen /HPF (None Seen); Urine Bacteria <20 /HPF (<20); Urine Bilirubin NEGATIVE (Negative); Urine Blood 3+ (OVER) (Negative); Urine Clarity Extremely Turbid (Clear); Urine Color Light-Orange (Yellow); Urine Culture Reflex Order REFLEXED; Urine Glucose NEGATIVE (Negative); Urine Ketones NEGATIVE (Negative); Urine Micro Reflex YN NO BILL MICROSCOPIC; Urine Mucus Slight /HPF (None Seen); Urine Nitrite NEGATIVE (Negative); Urine Protein 1+ (Negative); Urine RBC >50 /HPF (None Seen); Urine Urobilinogen 1+ (Normal); Urine WBC >50 /HPF (<5); Urine Yeast (Budding) Few /HPF (None Seen)
[2024-09-24 13:09] LABS: Albumin 2.7 g/dL (3.4-5.0); Albumin/Globulin Ratio 0.7 (1.1-1.8); Anion Gap 10.5 mEq/L (5.0-15.0); Bilirubin Direct 0.2 mg/dL (0-0.2); Bilirubin Indirect, Calculated 0.5 mg/dL (0.2-0.8); Bilirubin Total 0.7 mg/dL (0.2-1.0); Globulin 3.7 g/dL (2.3-3.5); Potassium 4.5 mEq/L (3.5-5.1); Protein, Total 6.4 g/dL (6.4-8.2); Troponin High Sensitivity 7.4 pg/mL (<58.9)
--- NOTE | 2024-09-24 13:20 | ER ---
Nurse's Notes [facility] Name: Elias Molina Age: 84 yrs Sex: Male : 1940 Arrival Date: 09/24/2024 Time: 10:46 Bed 16 Private MD: Diagnosis: Traumatic López catheter removal Presentation: 09/24 10:55 Chief complaint: EMS states: toned out to [facility] for pulling out catheter and low ld1 blood pressure. [place] side staff does not want López catheter back in place. Doctor wants to straight cath instead at nursing facility. Coronavirus screen: At this time, the client does not indicate any symptoms associated with coronavirus-19. Ebola Screen: No symptoms or risks identified at this time. Initial Sepsis Screen: Does the patient meet any 2 criteria? No. Patient's initial sepsis screen is negative. Does the patient have a suspected source of infection? No. Patient's initial sepsis screen is negative. Risk Assessment: Do you want to hurt yourself or someone else? Patient reports no desire to harm self or others. Onset of symptoms was September 24, 2024. 10:55 Method Of Arrival: EMS: [facility] ld1 10:55 Acuity: TIRSO 2 ld1 Triage Assessment: 10:57 General: Appears in no apparent distress. comfortable, Behavior is calm, cooperative, ld1 appropriate for age. Pain: Unable to use pain scale. Patient is disoriented. Does not appear to understand pain scale. EENT: No signs and/or symptoms were reported regarding the EENT system. Neuro: Level of Consciousness is awake, alert, obeys commands, Oriented to person, place, time, situation, Appropriate for age. Cardiovascular: Capillary refill < 3 seconds Patient's skin is warm and dry. Respiratory: Airway is patent Respiratory effort is even, unlabored. GI: Abdomen is flat, non-distended. : No signs and/or symptoms were reported regarding the genitourinary system. Derm: No signs and/or symptoms reported regarding the dermatologic system. Musculoskeletal: No signs and/or symptoms reported regarding the musculoskeletal system. Historical: - Allergies: 10:57 No Known Allergies; ld1 - PMHx: 10:56 Alzheimer's disease; Anxiety; BPH; Dementia; Hypercholesterolemia; Hyperlipidemia ld1 (Hypertensive disord); Hypertensive disorder; OBSTRUCTIVE UROPATHY; - PSHx: 10:56 Right hip replacement; ld1 - Immunization history:: Adult Immunizations up to date. - Infectious Disease History:: Denies. - Social history:: Smoking status: Patient denies any tobacco usage or history of. - Family history:: not pertinent. Screenin:58 [facility] ED Fall Risk Assessment (Adult) History of falling in the last 3 months, ld1 including since admission No falls in past 3 months (0 pts) Confusion or Disorientation Yes (5 pts) Intoxicated or Sedated No (0 pts) Impaired Gait Yes (1 pt) Mobility Assist Device Used Yes (1 pt) Altered Elimination Yes (1 pt) Score/Fall Risk Level 3 or more points = High Risk Oriented to surroundings, Maintained a safe environment, Educated pt \T\ family on fall prevention, incl call for assistance when getting out of bed, Assessed \T\ reinforced patient's understanding of fall precautions, Provided non-skid footwear, Hourly rounding (assess needs \T\ fall precautionary measures) done, Used ambulatory aids as needed (educated on \T\ assisted with). Abuse screen: Denies threats or abuse. Denies injuries from another. Nutritional screening: No deficits noted. Tuberculosis screening: No symptoms or risk factors identified. Assessment: 10:58 Reassessment: See triage assessment. ld1 11:45 Reassessment: Patient appears in no apparent distress at this time. No changes from ld1 previously documented assessment. 12:45 Reassessment: Patient appears in no apparent distress at this time. No changes from ld1 previously documented assessment. Patient and/or family updated on plan of care and expected duration. Pain level reassessed. Pt refusing to stay hooked up to monitor - notified ERP. Attempting to pull out IV access and lópez catheter. 13:47 Reassessment: Patient appears in no apparent distress at this time. No changes from ld1 previously documented assessment. Called patient report to Zoya at [facility] at this time. 14:29 Reassessment: Zoya from [place] called - [facility] ambulance ETA approximately 30 minutes.ld1 Vital Signs: 10:55 BP 84 / 52; Pulse 79; Resp 18; Temp 98.1(O); Pulse Ox 98% on R/A; Weight 85.73 kg; ld1 Height 5 ft. 8 in. ; Pain 0/10; 12:14 BP 120 / 67; Pulse 74; Resp 18; Pulse Ox 99% on R/A; ld1 13:47 BP 118 / 69; Pulse 86; Resp 18; Pulse Ox 96% on R/A; ld1 10:55 Body Mass Index 28.74 (85.73 kg, 172.72 cm) ld1 10:55 Pain Scale: Adult ld1 ED Course: 10:47 Patient arrived in ED. bd 10:48 Ray Larson MD is Attending Physician. rt 10:56 Triage completed. ld1 10:57 Arm band placed on right wrist. ld1 10:58 Patient has correct armband on for positive identification. Placed in gown. Bed in low ld1 position. Call light in reach. Side rails up X2. monitoring and evaluation advisor on. Pulse ox on. NIBP on. Door closed. Noise minimized. Warm blanket given. 10:58 No provider procedures requiring assistance completed. ld1 10:59 Karen Martines, TRISTEN is Primary Nurse. ld1 12:22 XRAY Chest (1 view) In Process Unspecified. EDMS 12:27 Missed attempt(s): 24 gauge in right forearm. Inserted saline lock: 22 gauge in left kc6 wrist, using aseptic technique. Blood collected. Flushed with 10 mL NS. 12:47 UAM Sent. ld1 12:47 López cath inserted, using sterile technique, 16 Fr., by in, balloon inflated, to ld1 gravity drainage, clamped. urine specimen collected. 13:19 Zack Parsons MD is Referral Physician. rt 15:13 IV discontinued, intact, bleeding controlled, No redness/swelling at site. ld1 Administered Medications: 11:29 Drug: NS 0.9% IV 500 ml IV at calculated rate once; to be given as a bolus over 30 ld1 minutes Route: IV; Rate: calculated rate; Site: left forearm; Medication: 10:58 VIS not applicable for this client. ld1 Intake: 13:47 Bloody urine ld1 Output: 12:47 Urine: 1000ml (López); Total: 1000ml. ld1 13:47 Urine: 800ml (López); Total: 1800ml. ld1 14:21 Urine: 400ml (López); Total: 2200ml. ld1 13:47 Bloody urine ld1 Outcome: 13:20 Discharge ordered by . rt 15:13 Discharged to alf. Report called to zoya ld1 15:13 Condition: stable 15:13 Instructed on discharge instructions, 15:13 Patient left the ED. ld1 Signatures: Dispatcher [employer] Christy Ash Lauren, RN RN ld1 Ghazala Benjamin RN RN [id number] Ray Larson MD MD rt
--- NOTE | 2024-09-24 13:20 | EDPHYS ---
Physician Documentation [facility] Name: Elias Molina Age: 84 yrs Sex: Male : 1940 Arrival Date: 09/24/2024 Time: 10:46 Bed 16 Private MD: ED Physician Ray Larson HPI: 09/24 12:03 This 84 yrs old Male presents to ER via EMS with complaints of Penile Problem. rt 12:03 Patient presents to the ED from [facility] due to traumatic removal of rt Richardson catheter. Patient was reportedly hypotensive, ever, has had this quite frequently as of late. History is limited due to patient with advanced dementia. Symptoms are moderate in severity, no other aggravating or alleviating factors.. Historical: - Allergies: 10:57 No Known Allergies; ld1 - PMHx: 10:56 Alzheimer's disease; Anxiety; BPH; Dementia; Hypercholesterolemia; Hyperlipidemia ld1 (Hypertensive disord); Hypertensive disorder; OBSTRUCTIVE UROPATHY; - PSHx: 10:56 Right hip replacement; ld1 - Immunization history:: Adult Immunizations up to date. - Infectious Disease History:: Denies. - Social history:: Smoking status: Patient denies any tobacco usage or history of. - Family history:: not pertinent. ROS: 12:03 Unable to obtain ROS due to baseline dementia, rt Exam: 12:03 Constitutional: This is a well developed, well nourished patient who is awake, alert, rt and in no acute distress. Head/Face: Normocephalic, atraumatic. Chest/axilla: Normal chest wall appearance and motion. Nontender with no deformity. No lesions are appreciated. Cardiovascular: Regular rate and rhythm with a normal S1 and S2. No gallops, murmurs, or rubs. Normal PMI, no JVD. No pulse deficits. Respiratory: Lungs have equal breath sounds bilaterally, clear to auscultation and percussion. No rales, rhonchi or wheezes noted. No increased work of breathing, no retractions or nasal flaring. Abdomen/GI: Soft, non-tender, with normal bowel sounds. No distension or tympany. No guarding or rebound. No evidence of tenderness throughout. Skin: Warm, dry with normal turgor. Normal color with no rashes, no lesions, and no evidence of cellulitis. MS/ Extremity: Pulses equal, no cyanosis. Neurovascular intact. Full, normal range of motion. 12:03 ECG was reviewed by the Attending Physician. Vital Signs: 10:55 BP 84 / 52; Pulse 79; Resp 18; Temp 98.1(O); Pulse Ox 98% on R/A; Weight 85.73 kg; ld1 Height 5 ft. 8 in. ; Pain 0/10; 12:14 BP 120 / 67; Pulse 74; Resp 18; Pulse Ox 99% on R/A; ld1 13:47 BP 118 / 69; Pulse 86; Resp 18; Pulse Ox 96% on R/A; ld1 10:55 Body Mass Index 28.74 (85.73 kg, 172.72 cm) ld1 10:55 Pain Scale: Adult ld1 MDM: 10:57 Medical Screening Exam initiated rt 16:12 Differential diagnosis: Traumatic Richardson catheter removal. Data reviewed: vital signs, rt nurses notes, lab test result(s), EKG, radiologic studies. Consideration of Admission/Observation Escalation of care including admission/observation considered. Patient is not hypotensive in the emergency department, Richardson catheter was replaced with drainage of a large amount of urine, labs are benign. Patient does not require admission to the hospital this time, stable for outpatient follow-up with urology. Independent interpretation of the following test(s) in the Emergency Department X-Ray: My interpretation is No infiltrate seen on interpretation of x-ray images. Test considered but Not performed: CT: Catheter placed without difficulty, CT scan is not indicated. Care significantly affected by the following chronic conditions: Dementia. Counseling: I had a detailed discussion with the patient and/or guardian regarding the historical points, exam findings, and any diagnostic results supporting the discharge/admit diagnosis, lab results, radiology results, the need for outpatient follow up. Response to treatment: the patient's symptoms have markedly improved after treatment. 09/24 11:03 Order name: Basic Metabolic Panel; Complete Time: 13:11 rt 09/24 11:03 Order name: CBC with Diff rt 09/24 11:03 Order name: LFT's; Complete Time: 13:11 rt 02 11:03 Order name: Troponin HS; Complete Time: 13:11 rt 09/24 11:03 Order name: UAM; Complete Time: 13:11 rt 0212 12:52 Order name: CBC Smear Scan EDMS 09/24 13:10 Order name: Urine Culture EDMS 09/24 11:03 Order name: XRAY Chest (1 view); Complete Time: 12:42 rt 09/24 11:03 Order name: EKG; Complete Time: 11:04 rt 09/24 11:03 Order name: Cardiac monitoring; Complete Time: 11:29 rt 09/24 11:03 Order name: EKG - Nurse/Tech; Complete Time: 11: rt 09/24 11:03 Order name: IV Saline Lock; Complete Time: 11: rt 09/24 11:03 Order name: Labs collected and sent; Complete Time: 12:26 rt 09/24 11:03 Order name: O2 Per Protocol; Complete Time: : rt 09/24 11:03 Order name: O2 Sat Monitoring; Complete Time: : rt 09/24 11:03 Order name: Richardson; Complete Time: 12:47 rt EC: Rate is 76 beats/min. Rhythm is irregularly irregular, A fib with No ectopy, Right rt bundle branch block. QRS Stanton is Normal. QRS interval is normal. QT interval is normal. No Q waves. T waves are Normal. No ST changes noted. Interpreted by me. Administered Medications: : Drug: NS 0.9% IV 500 ml IV at calculated rate once; to be given as a bolus over 30 ld1 minutes Route: IV; Rate: calculated rate; Site: left forearm; Disposition Summary: 09/24/24 13:20 Discharge Ordered Notes: Location: Home rt Problem: new rt Symptoms: have improved rt Condition: Stable rt Diagnosis - Traumatic Richardson catheter removal rt Followup: rt - With: Zack Parsons MD - When: 7 - 10 days - Reason: Discharge Instructions: - Discharge Summary Sheet rt - Indwelling Urinary Catheter Care, Adult rt Forms: - Medication Reconciliation Form rt - Antibiotic Education rt - Prescription Opioid Use rt - Patient Portal Instructions rt - Leadership Thank You Letter rt Signatures: Dispatcher Karen Larry RN RN ld1 Ray Larson MD MD rt
[2024-09-24 13:43] LABS: Anisocytosis 1+; Blood Morphology Comment NOTED (NOT SEEN); Platelet Estimate ADEQ; White Blood Cell Scan OK (OK)
[2024-09-24 13:44] LABS: Ovalocytes 1+
[2024-09-24 15:48] VITALS: TEMP 98.1
[2024-09-24 15:59] VITALS: BP 118/69; O2SAT 96
== END 2024-09-24 15:13 | disposition home or self-care (01) ==
LOC: ER 10:46
DX: T83.028A Displacement of other urinary catheter, initial encounter (principal); I95.9 Hypotension, unspecified; I10 Essential (primary) hypertension; G30.9 Alzheimer's disease, unspecified; F02.80 Dementia in other diseases classified elsewhere, unspecified severity, without behavioral disturbance, psychotic disturbance, mood disturbance, and anxiety; Z96.641 Presence of right artificial hip joint
CPT/HCPCS: 87088; 85025; 81001; 87086; 80048; 36415; 80076; 84484; 71045; 51702; J7030; 93005

== ENCOUNTER 2024-10-02 01:59 | Emergency (ER) | payer OTHER ==
--- NOTE | 2024-10-02 02:49 | ER ---
Nurse's Notes [facility] Name: Elias Molina Age: 84 yrs Sex: Male : 1940 Arrival Date: 10/02/2024 Time: 01:59 Bed 7 Private MD: Diagnosis: Retention of urine, unspecified Presentation: 10/02 02:03 Chief complaint: EMS states: from [facility] home with c/o urinary retention al5 along with RLQ \T\ LLQ pain starting around 2100. Coronavirus screen: At this time, the client does not indicate any symptoms associated with coronavirus-19. Ebola Screen: No symptoms or risks identified at this time. Initial Sepsis Screen: Does the patient meet any 2 criteria? Altered Mental Status. No. Patient's initial sepsis screen is negative. Does the patient have a suspected source of infection? No. Patient's initial sepsis screen is negative. Risk Assessment: Do you want to hurt yourself or someone else? Patient reports no desire to harm self or others. Note patient is strictly straight cathetered. was able to straight cath at 1800 and got 600 mL out. at 2100 got less than 100 mL out but patient c/o still feeling full. at 0100, got nothing out and patient c/o lower abdominal pain 10/10 and slight bleeding from catheter. Onset of symptoms was October 02, 2024. Care prior to arrival: IV initiated. 20 GA, in the left antecubital area, Glucose check: 81. 02:03 Method Of Arrival: EMS: [facility] al5 02:03 Acuity: [facility] 3 al5 Triage Assessment: 02:07 General: Appears in no apparent distress. uncomfortable, Behavior is calm, cooperative. al5 Pain: Complains of pain in suprapubic area, right lower quadrant and left lower quadrant Pain currently is 10 out of 10 on a pain scale. EENT: No signs and/or symptoms were reported regarding the EENT system. Neuro: Level of Consciousness is awake, obeys commands, confused, Oriented to baseline, hx of dementia. Cardiovascular: Capillary refill < 3 seconds Patient's skin is warm and dry. Respiratory: Airway is patent Respiratory effort is even, unlabored, Respiratory pattern is regular, symmetrical. GI: Abdomen is round distended, Abdomen is tender to palpation in suprapubic area, right lower quadrant and left lower quadrant Reports lower abdominal pain. : Reports inability to void, pain in bilateral lower quadrant(s). Derm: Skin is intact, Skin is pink, warm \T\ dry. normal. Musculoskeletal: No signs and/or symptoms reported regarding the musculoskeletal system. Historical: - Allergies: 02:07 No Known Allergies; al5 - PMHx: 02:07 Alzheimer's disease; Anxiety; BPH; Dementia; Hypercholesterolemia; Hyperlipidemia al5 (Hypertensive disord); Hypertensive disorder; OBSTRUCTIVE UROPATHY; - PSHx: 02:07 Right hip replacement; al5 - Immunization history:: Adult Immunizations up to date. - Infectious Disease History:: Denies. - Social history:: Smoking status: Patient denies any tobacco usage or history of. - Family history:: not pertinent. Screenin:10 [facility] ED Fall Risk Assessment (Adult) History of falling in the last 3 months, al5 including since admission No falls in past 3 months (0 pts) Confusion or Disorientation Yes (5 pts) Intoxicated or Sedated No (0 pts) Impaired Gait Yes (1 pt) Mobility Assist Device Used No (0 pt) Altered Elimination No (0 pt) Score/Fall Risk Level 3 or more points = High Risk Oriented to surroundings, Maintained a safe environment, Hourly rounding (assess needs \T\ fall precautionary measures) done. Abuse screen: Denies threats or abuse. Denies injuries from another. Nutritional screening: No deficits noted. Tuberculosis screening: No symptoms or risk factors identified. Assessment: 02:09 Reassessment: see triage assessment. al5 02:34 Reassessment: removed 1800 mL of yellow/dori urine from patient bladder via catheter. al5 patient tolerated well. notified provider. plan to discharge patient back to [facility] Patient states feeling better. Patient states symptoms have improved. 02:40 Reassessment: gave report to [facility] facility, nurse setting up transfer at this time.al5 02:49 Reassessment: discharge pending ride home back to [facility]. al5 03:17 Reassessment: Patient appears in no apparent distress at this time. No changes from al5 previously documented assessment. Patient and/or family updated on plan of care and expected duration. Pain level [facility]. report given to ems. patient to be discharged back to [facility]. Vital Signs: 02:03 BP 151 / 80; Pulse 85; Resp 18; Temp 97.9; Pulse Ox 100% on R/A; Weight 83.46 kg; al5 Height 5 ft. 10 in. ; Pain 10/10; 02:15 BP 131 / 80; Pulse 65; Resp 16; Pulse Ox 100% on R/A; al5 03:18 BP 103 / 61; Pulse 63; Resp 16; Pulse Ox 100% on R/A; al5 02:03 Body Mass Index 26.40 (83.46 kg, 177.8 cm) al5 02:03 Pain Scale: Adult al5 [place] Coma Score: 02:49 Eye Response: spontaneous(4). Motor Response: obeys commands(6). Verbal Response: sp4 confused(4). Total: 14. ED Course: 02:03 Patient arrived in ED. al5 02:03 Mario Williamson MD is Attending Physician. al5 02:07 Triage completed. al5 02:09 Arm band placed on right wrist. Patient placed in the treatment room, in view of staff al5 members, on pulse oximetry. 02:35 No provider procedures requiring assistance completed. Straight cath inserted, using al5 sterile technique, 14 Fr. 1800 mL removed from bladder Returned clear yellow urine. Patient tolerated well. Maintain EMS IV. Dressing intact. Good blood return noted. Site clean \T\ dry. Gauge \T\ site: 20G LAC. 02:36 Patient has correct armband on for positive identification. Placed in gown. Bed in low al5 position. Call light in reach. Side rails up X2. Provided Education on: plan of care. 02:39 Missy Ha, RN is Primary Nurse. al5 03:18 IV discontinued. al5 Administered Medications: No medications were administered Medication: 02:09 VIS not applicable for this client. al5 Outcome: 02:49 Discharge ordered by . sp4 03:18 Discharged to senior care. Report called to [facility] al5 03:18 Condition: good 03:18 Discharge instructions given to EMS, Instructed on discharge instructions, follow up and referral plans. Demonstrated understanding of instructions, follow-up care, 03:18 Patient left the ED. al5 Signatures: Mario Williamson MD MD sp4 Langhorst, Missy, RN RN al5
--- NOTE | 2024-10-02 02:49 | EDPHYS ---
Physician Documentation [facility] Name: Elias Molina Age: 84 yrs Sex: Male : 1940 Arrival Date: 10/02/2024 Time: 01:59 Bed 7 Private MD: ED Physician Mario Williamson HPI: 10/02 02:45 This 84 yrs old Male presents to ER via EMS with complaints of Urinary sp4 Retention. 02:49 84-year-old male presents with acute urinary retention history of BPH moderate to sp4 severe urinary retention. [facility] states patient feels uncomfortable. Patient now gets periodic straight cath secondary to the fact that he cannot tolerate Richardson catheter. . 02:51 Past medical history positive for Alzheimer's type dementia BPH, hypophosphatemia, sp4 hyperlipidemia, reflux uropathy, BPH, bilateral hip replacement, history of sepsis, history of hydronephrosis, lack of coordination, cognitive communication deficit, essential hypertension, muscular weakness, abnormality of gait and mobility, retention of urine, medications include quetiapine, tamsulosin, rosuvastatin, buspirone, metoprolol, rivastigmine, aspirin, CODE STATUS reveals full code.. Historical: - Allergies: 02:07 No Known Allergies; al5 - PMHx: 02:07 Alzheimer's disease; Anxiety; BPH; Dementia; Hypercholesterolemia; Hyperlipidemia al5 (Hypertensive disord); Hypertensive disorder; OBSTRUCTIVE UROPATHY; - PSHx: 02:07 Right hip replacement; al5 - Immunization history:: Adult Immunizations up to date. - Infectious Disease History:: Denies. - Social history:: Smoking status: Patient denies any tobacco usage or history of. - Family history:: not pertinent. ROS: 02:49 Constitutional: Negative for fever, chills, and weight loss, positive urinary retention sp4 02:49 All other systems are negative, Exam: 02:49 Constitutional: This is a well developed, well nourished patient who is awake, alert, sp4 moderate dementia on exam. Head/Face: Normocephalic, atraumatic. 02:49 Eyes: Pupils equal round and reactive to light, extra-ocular motions intact. Lids and lashes normal. Conjunctiva and sclera are not injected. Cornea within normal limits. Periorbital areas with no swelling, redness, or edema. ENT: Nares patent. No nasal discharge, no septal abnormalities noted. Tympanic membranes are normal and external auditory canals are clear. Oropharynx with no redness, swelling, or masses, exudates, or evidence of obstruction, uvula midline. Mucous membranes moist. Neck: Trachea midline, no thyromegaly or masses palpated, and no cervical lymphadenopathy. Supple, full range of motion without nuchal rigidity, or vertebral point tenderness. Chest/axilla: Normal chest wall appearance and motion. Nontender with no deformity. No lesions are appreciated. Cardiovascular: Regular rate and rhythm with a normal S1 and S2. No gallops, murmurs, or rubs. Normal PMI, no JVD. No pulse deficits. Respiratory: Lungs have equal breath sounds bilaterally, clear to auscultation and percussion. No rales, rhonchi or wheezes noted. No increased work of breathing, no retractions or nasal flaring. Abdomen/GI: Soft, with normal bowel sounds. No distension or tympany. No guarding or rebound. No evidence of tenderness throughout. Back: No spinal tenderness. No costovertebral tenderness. Skin: Warm, dry with normal turgor. Normal color with no rashes, no lesions, and no evidence of cellulitis. MS/ Extremity: Pulses equal, no cyanosis. Neurovascular intact. Full, normal range of motion. Neuro: Awake and alert, GCS 15, oriented to person, Cranial nerves II-XII grossly intact. Motor strength 5/5 in all extremities. Sensory grossly intact. Moderate to advanced dementia Vital Signs: 02:03 BP 151 / 80; Pulse 85; Resp 18; Temp 97.9; Pulse Ox 100% on R/A; Weight 83.46 kg; al5 Height 5 ft. 10 in. ; Pain 10/10; 02:15 BP 131 / 80; Pulse 65; Resp 16; Pulse Ox 100% on R/A; al5 03:18 BP 103 / 61; Pulse 63; Resp 16; Pulse Ox 100% on R/A; al5 02:03 Body Mass Index 26.40 (83.46 kg, 177.8 cm) al5 02:03 Pain Scale: Adult al5 [place] Coma Score: 02:49 Eye Response: spontaneous(4). Motor Response: obeys commands(6). Verbal Response: sp4 confused(4). Total: 14. MDM: 02:49 Medical Screening Exam initiated sp4 02:53 Differential diagnosis: nonspecific abdominal pain, urinary retention, Richardson catheter sp4 problem, prostatitis, urethritis. Data reviewed: vital signs, nurses notes, EMS record, old medical records. Consideration of Admission/Observation Escalation of care including admission/observation considered. ED course: In-N-Out catheter was placed and 2 L of clear urine was evacuated. Patient feels much better. Will advise longterm to continue periodic catheterizations to alleviate bladder pressure. . 10/02 02:15 Order name: Cath; Complete Time: 02:34 sp4 10/02 02:15 Order name: Misc. Order: Measure urine output; Complete Time: 34 sp4 Administered Medications: No medications were administered Disposition Summary: 10/02/24 02:49 Discharge Ordered Notes: Location: Home sp4 Problem: new sp4 Symptoms: have improved sp4 Condition: Stable sp4 Diagnosis - Retention of urine, unspecified sp4 Followup: sp4 - With: Private Physician - When: 7 - 10 days - Reason: Recheck today's complaints Discharge Instructions: - Discharge Summary Sheet sp4 - Acute Urinary Retention, Male, [id number] sp4 Forms: - Patient Portal Instructions sp4 Signatures: Mario Williamson MD MD sp4 Missy Ha RN RN al5
[2024-10-03 11:47] VITALS: TEMP 97.9; O2SAT 100
[2024-10-03 11:49] VITALS: BP 103/61
== END 2024-10-02 03:18 | disposition home or self-care (01) ==
LOC: ER 01:59
DX: R33.9 Retention of urine, unspecified (principal); G30.9 Alzheimer's disease, unspecified; F02.80 Dementia in other diseases classified elsewhere, unspecified severity, without behavioral disturbance, psychotic disturbance, mood disturbance, and anxiety; Z96.643 Presence of artificial hip joint, bilateral
CPT/HCPCS: 51702; 99284